=== PATIENT | female | born 1935 | race Caucasian/White ===

== ENCOUNTER 2020-01-31 07:47 | Outpatient (CLI) | payer MEDICARE, SELFPAY ==
--- NOTE | ~2020-01-31 | CT_ITS ---
EXAMINATION: CT abdomen pelvis w con DATE: 01/31/2020 08:31 INDICATION: Amyloidosis TECHNIQUE: Computed tomography (CT) of the abdomen and pelvis was performed with 100 cc Omnipaque 350 intravenous contrast. Automated exposure control and iterative reconstruction technique were employe d. Exam dose: 231.22 mGy-cm total exam DLP. COMPARISON: 07/31/2018 CT abdomen and pelvis noncontrast examination 03/15/2019 CT pelvis FINDINGS: There is mild discoid atelectasis or scarring in the lower lung zones and evidence of COPD. No pericardial or pleural effusion. Small sliding hiatal hernia. The liver, spleen, pancreas, and adrenal glands and kidneys are unremarkable. No bile duct or pancrea tic duct dilatation. The gallbladder appears unremarkable. No urinary tract calculus or hydroureteron ephrosis. There is abdominal aortic atherosclerosis but no aneurysm. There is atherosclerotic calcification of the iliac and femoral arteries. There is pelvic vascular venous congestion bilaterally, greater on th e left. 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 No intraperitoneal or retroperitoneal or pelvic mass lesion or adenopathy or ascites. There is a prominent amount of fecal material in the rectum and colon. There are numerous diverticula of the sigmoid colon, minimal diverticulosis of the right colon. There is a short segment narrowing at the proximal transverse colon (series 3 image 87); this may be contraction, but consider barium en debi or colonoscopy as clinically appropriate. There is a prominent amount of fecal material in the re ctum and colon. There is suggestion of postoperative change from appendectomy; recommend correlation with surgical history. The uterus and adnexal areas are and urinary bladder are unremarkable. Prominent bilateral hip osteoarthritis. Bone graft defect of right iliac bone. Degenerative spurring of the lower thoracic spine. Mild retrolisthesis at T12-L1. Status post and interbody lumbar laminectomy and posterior L3-L5 spinal fusion. IMPRESSION: Short segment narrowing of the proximal transverse colon; this may be contraction, but b arium or colonoscopy should be considered for further evaluation Diverticulosis of the colon; no CT evidence of diverticulitis Reviewed, dictated and finalized at [facility]. Reviewed, dictated and finalized at location [facility]. IMPRESSION: Short segment narrowing of the proximal transverse colon; this may be contraction, but barium or colonoscopy should be considered for further tamara luation Diverticulosis of the colon; no CT evidence of diverticulitis
[2020-01-31 08:17] LABS: Estimated Glomerular Filt Rate > 60
== END 2020-01-31 07:48 | disposition home or self-care (01) ==
PROVIDERS: PCP Internal Medicine; Visit Provider Internal Medicine Hematology & Oncology
DX: E85.9 Amyloidosis, unspecified (principal); K56.609 Unspecified intestinal obstruction, unspecified as to partial versus complete obstruction
CPT/HCPCS: 36415; 74177; Q9967

== ENCOUNTER 2020-02-07 10:39 | Outpatient (CLI) | payer MEDICARE, SELFPAY ==
[2020-02-07 10:51] LABS: Basophils Absolute Auto 0.1 K/mm3 (0.0-0.1); Basophils Percent Auto 0.7 % (0.2-1.2); Eosinophils Absolute Auto 0.3 K/mm3 (0-0.3); Eosinophils Percent Auto 3.3 % (0-4.4); Hematocrit 39.9 % (37.0-47.0); Hemoglobin 13.6 g/dL (12.0-15.0); Immature Granulocyte Absolute 0.01 K/mm3 (0.00-0.031); Immature Granulocyte Percent A 0.1 % (0-0.5); Lymphocytes Absolute Auto 1.97 K/mm3 (0.9-3.2); Lymphocytes Percent Auto 25.8 % (18.3-44.2); Mean Corpuscular HGB Conc 34.1 g/dl (32-36); Mean Corpuscular Hemoglobin 36.2 pg (26-34); Mean Corpuscular Volume 106.1 fl (80-100); Mean Platelet Volume 9.4 fl (7.4-10.4); Monocytes Absolute Auto 0.5 K/mm3 (0.1-0.6); Monocytes Percent Auto 7.1 % (2.6-8.5); Neutrophils Absolute Auto 4.8 K/mm3 (1.3-6.7); Platelet Count Result 163 k/mm3 (150-375); Red Blood Count 3.76 M/mm3 (4.2-5.4); Red Cell Distribution Width 12.1 % (11.5-14.5); White Blood Count 7.7 K/mm3 (4.5-10.0)
[2020-02-07 10:56] LABS: Blood Urea Nitrogen 32 mg/dL (8-26); Carbon Dioxide 27 mmol/L (22-30); Chloride 104 mmol/L (98-109); Estimated Glomerular Filt Rate > 60; Glucose 107 mg/dL (70-105); Potassium 4.3 mmol/L (3.5-4.9); Sodium 139 mmol/L (138-146)
== END 2020-02-07 10:40 | disposition home or self-care (01) ==
LOC: ANHLAB 10:39
PROVIDERS: PCP Internal Medicine; Visit Provider Internal Medicine Hematology & Oncology
DX: E85.89 Other amyloidosis (principal)
CPT/HCPCS: 36415; 80048; 85025

== ENCOUNTER 2020-07-31 13:46 | Outpatient (CLI) | payer MEDICARE, SELFPAY ==
[2020-07-31 14:13] LABS: Basophils Percent Auto 0.3 % (0.2-1.2); Eosinophils Absolute Auto 0.2 K/mm3 (0-0.3); Eosinophils Percent Auto 2.9 % (0-4.4); Hematocrit 35.7 % (37.0-47.0); Hemoglobin 12.4 g/dL (12.0-15.0); Immature Granulocyte Absolute 0.02 K/mm3 (0.00-0.031); Immature Granulocyte Percent A 0.3 % (0-0.5); Lymphocytes Absolute Auto 2.06 K/mm3 (0.9-3.2); Lymphocytes Percent Auto 29.9 % (18.3-44.2); Mean Corpuscular HGB Conc 34.7 g/dl (32-36); Mean Corpuscular Hemoglobin 35.4 pg (26-34); Mean Platelet Volume 9.2 fl (7.4-10.4); Monocytes Absolute Auto 0.6 K/mm3 (0.1-0.6); Monocytes Percent Auto 8.4 % (2.6-8.5); Neutrophils Percent Auto 58.2 % (45.5-73.1); Platelet Count Result 187 k/mm3 (150-375); Red Cell Distribution Width 12.3 % (11.5-14.5); White Blood Count 6.9 K/mm3 (4.5-10.0)
[2020-07-31 16:24] LABS: Alanine Aminotransferase 23 U/L (4-35); Alkaline Phosphatase 68 U/L (38-126); Anion Gap 8 mmol/L (8-16); Aspartate Amino Transferase 37 U/L (14-36); Bilirubin,Total 0.5 mg/dL (0.2-1.3); Blood Urea Nitrogen 32 mg/dL (7-17); Calcium 9.8 mg/dL (8.4-10.2); Carbon Dioxide 29 mmol/L (22-30); Chloride 100 mmol/L (98-107); Estimated Glomerular Filt Rate > 60; Glucose 129 mg/dL (65-105); Potassium 4.1 mmol/L (3.4-5.0); Sodium 137 mmol/L (137-145)
[2020-08-04 22:07] LABS: Albumin 3.9 g/dL (3.8-4.8); Alpha 1 Globulin 0.3 g/dL (0.2-0.3); Alpha 2 Globulin 0.5 g/dL (0.5-0.9); Beta 1 Globulin 0.4 g/dL (0.4-0.6); Gamma Globulin 0.8 g/dL (0.8-1.7); Protein, Total 6.3 g/dL (6.1-8.1)
== END 2020-07-31 13:47 | disposition home or self-care (01) ==
LOC: ANHLAB 13:48
PROVIDERS: PCP Internal Medicine; Visit Provider Internal Medicine Hematology & Oncology
DX: E85.89 Other amyloidosis (principal)
CPT/HCPCS: 36415; 80053; 84155; 84165; 85025; 86334

== ENCOUNTER 2020-08-10 11:51 | Outpatient (CLI) | payer MEDICARE, SELFPAY ==
[2020-08-10 19:00] LABS: Iron 191 ug/dL (37-170)
[2020-08-10 19:09] LABS: Percent Iron Saturation 58 % (20-50)
[2020-08-10 20:30] LABS: Folic Acid > 20.0 ng/mL (2.76->20); Vitamin B12 > 1000.0 pg/mL (239-931)
== END 2020-08-10 11:52 | disposition home or self-care (01) ==
LOC: ANHLAB 11:54
PROVIDERS: PCP Internal Medicine; Visit Provider Internal Medicine Hematology & Oncology
DX: R71.8 Other abnormality of red blood cells (principal)
CPT/HCPCS: 36415; 82607; 82728; 82746; 83540; 83550

== ENCOUNTER 2020-11-14 09:41 | Emergency (ER) | payer MEDICARE, SELFPAY ==
[2020-11-14] VITALS (13 sets, daily range): BP systolic 158–176; BP diastolic 60–87; PULSE 69–98; RESP 14–17; TEMP 35.8; O2SAT 78–99
--- NOTE | ~2020-11-14 | CT_ITS ---
EXAMINATION: CT lumbar spine wo con DATE: 11/14/2020 10:47 INDICATION: Low back pain. TECHNIQUE: Computed tomography (CT) of the lumbar spine was performed without intravenous contrast. A utomated exposure control and iterative reconstruction technique were employed. The dose-length produ ct was 362.89 mGy-cm. COMPARISON: CT abdomen and pelvis 01/31/2020, lumbar spine MRI 08/23/2019 FINDINGS: There is 7 degrees dextrocurvature of lumbar spine. There is 3 mm retrolisthesis of T12 on L1 and 3 mm anterolisthesis of L3 on L4 and L4 on L5. There are changes of anterior and posterior fus ion procedures at L3-L4 and L4-L5 with interbody devices and pedicle screws. There is severely decrea sed disc height at L2-L3 with endplate remodeling. The following disc levels are specifically discuss ed: L1-L2: The disc does not extend beyond the endplate margin. There is mild right and severe left facet joint osteoarthritis. There is no neural foraminal stenosis. There is no central canal stenosis. L2-L3: The disc is bulging. There is severe bilateral facet joint osteoarthritis. There is mild bilat eral neural foraminal stenosis. There is mild central canal stenosis. L3-L4: There is no facet joint hypertrophy. There is no neural foraminal stenosis. There is no centra l canal stenosis. L4-L5: There is mild left facet joint hypertrophy. There is mild left neural foraminal stenosis. Ther e is mild central canal stenosis with posterior decompression. L5-S1: The disc does not extend beyond the endplate margin. There is severe bilateral facet joint ost eoarthritis. There is mild bilateral neural foraminal stenosis. There is no central canal stenosis. IMPRESSION: 1. Severe lumbar spondylosis. 2. Anterior and posterior fusion procedures from L3 to L5. Reviewed, dictated and finalized at location [facility]. TOR SERVICES REPRESENTATIVE
--- NOTE | 2020-11-14 10:18 | PC.NURSE ---
PA at bedside for pt assessment.
--- NOTE | 2020-11-14 10:27 | ED.BACK ---
HPI - Back Pain/Injury General Chief Complaint: Back Pain/Injury Stated Complaint: back pain Time Seen by Provider: 11/14/20 10:10 Source: patient Mode of arrival: ambulatory Limitations: no limitations History of Present Illness HPI Narrative: This is an 84-year-old female that presents the emergency department for acute on chronic low back pain. Reports she sees pain management for this. Reports she recently had a radiofrequency ablation at the SI joint. Reports her pain has been worse since then. This was 4 days ago. They told her her pain should start improving after 4 days. She took tramadol this morning with some relief. Reports some nausea from the tramadol. Denies fever, abdominal pain, vomiting, dysuria, hematuria, weakness, or numbness. Related Data Home Medications Medication Instructions Recorded Confirmed biotin 300 mcg tablet 300 mcg PO DAILY 02/13/20 08/13/20 calcium carbonate 600 mg calcium 600 mg PO DAILY 02/13/20 08/13/20 (1,500 mg) tablet magnesium 250 mg tablet 250 mg PO DAILY 02/13/20 08/13/20 [id number]-ysq-cyfhz acid 0.4 1 tablet PO DAILY 02/13/20 08/13/20 mg-lycopene 300 mcg-lutein 250 mcg tablet omega-3 fatty acids 500 mg capsule 500 mg PO DAILY 02/13/20 08/13/20 pyridoxine (vitamin B6) 100 mg 100 mg PO DAILY 02/13/20 08/13/20 tablet albuterol sulfate 0.63 mg/3 mL 0.63 mg INHALATION Q4-6H PRN 07/30/20 08/13/20 solution for nebulization nabumetone mg PO 11/14/20 Allergies Allergy/AdvReac Type Severity Reaction Status Date / Time adhesive tape Allergy Unknown Unknown Verified 11/14/20 09:56 codeine Allergy Unknown Unknown Verified 11/14/20 09:56 Dphqpwm-Gbg-Otx Reductase Allergy Unknown Unknown Verified 11/14/20 09:56 Inhibitor Review of Systems Review of Systems: Narrative: CONSTITUTIONAL: Denies fever GASTROINTESTINAL: Reports nausea. Denies abdominal pain, vomiting GENITOURINARY: Denies dysuria or hematuria. SKIN: Denies rash MUSCULOSKELETAL: Reports back pain, joint pain, and myalgia. NEUROLOGIC: Denies numbness, or weakness. All systems reviewed & are unremarkable except as noted in HPI and below PMFSH Past Medical History Medical History (Updated 11/14/20 @ 12:18 by Manuela Sanchez PA-C) Amyloidosis, unspecified Bilateral shoulder pain Degenerative joint disease Emphysema lung GERD (gastroesophageal reflux disease) Hiatal hernia Hyperlipidemia Hypertension Lung nodule Trochanteric bursitis Surgical History Surgical History History of back surgery Dr. Mena History of carpal tunnel release History of knee replacement Juan Family History Family History Mother Hypertension Diabetes mellitus Other Family history of arthritis Social History Social History Smoking status: Never smoker Second hand tobacco smoke exposure: No Alcohol intake: never Gender identity (if verbalized by the patient): Female Exam Narrative: Exam Narrative: GENERAL: Elderly, well-nourished, and in no acute distress. HEAD: Normocephalic, atraumatic. EYES: EOMI. CHEST: Clear to auscultation. No respiratory distress. No wheezes rales or rhonchi HEART: Regular rate and rhythm. No murmur heard. Normal peripheral pulses. ABDOMEN: Soft, nontender, nondistended, normal active bowel sounds. BACK: No midline spinal tenderness. Mild bruising to the left lower back where injection site is, no erythema or warmth EXTREMITIES: Normal range of motion. No edema. Strength equal in bilateral lower extremities (5/5) SKIN: Warm, dry, no rash. NEURO: No focal deficits. Alert and oriented x3. PSYCH: Normal mood and affect Course Vital Signs Vital signs: Vital Signs Temperature 96.5 F L 11/14/20 09:52 Pulse Rate 75 11/14/20 09:52 Respiratory Rate 17 11/14/20 09:52 Blood Pressure 165/77 H 11/14/20 09:
[2020-11-14] MEDS: ACETAMINOPHEN 500 MG TABLET 1000 MG PO (10:36)
[2020-11-14] MEDS: ONDANSETRON HCL ODT 4 MG TABLET PO (10:36)
--- NOTE | 2020-11-14 10:39 | PC.NURSE ---
Pt to CT.
[2020-11-14 10:54] LABS: Basophils Percent Auto 0.6 % (0.2-1.2); Eosinophils Absolute Auto 0.1 K/mm3 (0-0.3); Eosinophils Percent Auto 1.7 % (0-4.4); Hematocrit 36.5 % (37.0-47.0); Hemoglobin 12.5 g/dL (12.0-15.0); Immature Granulocyte Absolute 0.02 K/mm3 (0.00-0.031); Immature Granulocyte Percent A 0.3 % (0-0.5); Lymphocytes Absolute Auto 1.46 K/mm3 (0.9-3.2); Mean Corpuscular HGB Conc 34.2 g/dl (32-36); Mean Corpuscular Hemoglobin 35.3 pg (26-34); Mean Corpuscular Volume 103.1 fl (80-100); Mean Platelet Volume 9.1 fl (7.4-10.4); Monocytes Absolute Auto 0.6 K/mm3 (0.1-0.6); Monocytes Percent Auto 9.1 % (2.6-8.5); Neutrophils Absolute Auto 4.7 K/mm3 (1.3-6.7); Neutrophils Percent Auto 67.3 % (45.5-73.1); Platelet Count Result 184 k/mm3 (150-375); Red Blood Count 3.54 M/mm3 (4.2-5.4); Red Cell Distribution Width 11.6 % (11.5-14.5); White Blood Count 6.9 K/mm3 (4.5-10.0)
[2020-11-14 11:46] LABS: Anion Gap 6 mmol/L (8-16); Blood Urea Nitrogen 19 mg/dL (7-17); CRP < 0.5 mg/dL (<1.0); Calcium 9.7 mg/dL (8.4-10.2); Carbon Dioxide 29 mmol/L (22-30); Chloride 103 mmol/L (98-107); Estimated CRCL calculation 42 ml/min; Estimated Glomerular Filt Rate > 60; Glucose 117 mg/dL (65-105); Potassium 4.1 mmol/L (3.4-5.0); Sodium 138 mmol/L (137-145)
--- NOTE | 2020-11-14 11:55 | PC.NURSE ---
PA at bedside to discuss results and treatment plan with pt.
== END 2020-11-14 12:43 | disposition home or self-care (01) ==
PROVIDERS: Physician Assistant; Emergency Provider Emergency Medicine; PCP Internal Medicine
DX: M54.42 Lumbago with sciatica, left side (principal); J43.9 Emphysema, unspecified; K21.9 Gastro-esophageal reflux disease without esophagitis; E78.5 Hyperlipidemia, unspecified; I10 Essential (primary) hypertension; E85.9 Amyloidosis, unspecified; M47.816 Spondylosis without myelopathy or radiculopathy, lumbar region; Z98.1 Arthrodesis status
CPT/HCPCS: 36415; 72131; 80048; 85025; 86140; 99284; A9270

== ENCOUNTER 2020-11-30 08:04 | Outpatient (CLI) | payer MEDICARE, SELFPAY ==
[2020-11-30 08:36] LABS: Basophils Percent Auto 0.6 % (0.2-1.2); Eosinophils Absolute Auto 0.2 K/mm3 (0-0.3); Eosinophils Percent Auto 4.1 % (0-4.4); Hematocrit 37.9 % (37.0-47.0); Hemoglobin 12.7 g/dL (12.0-15.0); Immature Granulocyte Absolute 0.01 K/mm3 (0.00-0.031); Immature Granulocyte Percent A 0.2 % (0-0.5); Lymphocytes Absolute Auto 1.83 K/mm3 (0.9-3.2); Lymphocytes Percent Auto 34.5 % (18.3-44.2); Mean Corpuscular HGB Conc 33.5 g/dl (32-36); Mean Corpuscular Hemoglobin 34.9 pg (26-34); Mean Corpuscular Volume 104.1 fl (80-100); Mean Platelet Volume 9.1 fl (7.4-10.4); Monocytes Absolute Auto 0.5 K/mm3 (0.1-0.6); Monocytes Percent Auto 9.8 % (2.6-8.5); Neutrophils Absolute Auto 2.7 K/mm3 (1.3-6.7); Neutrophils Percent Auto 50.8 % (45.5-73.1); Platelet Count Result 189 k/mm3 (150-375); Red Blood Count 3.64 M/mm3 (4.2-5.4); Red Cell Distribution Width 11.9 % (11.5-14.5); White Blood Count 5.3 K/mm3 (4.5-10.0)
[2020-11-30 12:19] LABS: Iron 135 ug/dL (37-170)
[2020-11-30 12:36] LABS: Percent Iron Saturation 41 % (20-50)
[2020-11-30 13:29] LABS: Folic Acid > 20.0 ng/mL (2.76->20)
[2020-12-03 14:03] LABS: Kappa\\Lambda Light Chains 1.27 (0.26-1.65); Lambda Light Chain 15.1 mg/L (5.7-26.3)
[2020-12-03 22:07] LABS: Albumin 4.1 g/dL (3.8-4.8); Alpha 1 Globulin 0.3 g/dL (0.2-0.3); Alpha 2 Globulin 0.6 g/dL (0.5-0.9); Beta 1 Globulin 0.4 g/dL (0.4-0.6); Gamma Globulin 0.8 g/dL (0.8-1.7); Protein, Total 6.6 g/dL (6.1-8.1)
== END 2020-11-30 08:05 | disposition home or self-care (01) ==
LOC: ANHLAB 08:05
PROVIDERS: PCP Internal Medicine; Visit Provider Internal Medicine Hematology & Oncology
DX: E83.19 Other disorders of iron metabolism (principal); R74.8 Abnormal levels of other serum enzymes; E85.89 Other amyloidosis
CPT/HCPCS: 36415; 82607; 82728; 82746; 83540; 83550; 83883; 84155; 84165; 85025

== ENCOUNTER 2020-12-07 10:34 | Outpatient (CLI) | payer MEDICARE, SELFPAY ==
--- NOTE | ~2020-12-07 | XR_ITS ---
EXAMINATION: XR femur LT min 2V DATE: 12/07/2020 11:03 INDICATION: Left lower limb pain TECHNIQUE: AP and lateral views of the left femur were obtained on overlapping proximal and distal ra diographs. COMPARISON: Left hip radiographs dated 07/02/2020 and left knee radiographs dated 08/13/2012 FINDINGS: Again seen is a left total knee arthroplasty with patellar resurfacing which appears in near-anatomic alignment. No left knee joint effusion. No fractures. No suspected avascular necrosis at the left fe moral head. Mild left hip osteoarthritis with minimal nonuniform joint space narrowing and small ashkan inal osteophytes about the femoral head and acetabulum. Atherosclerotic calcifications along the velvet arelis at the medial left thigh and left groin. IMPRESSION: 1. Unremarkable left total knee arthroplasty. No acute osseous abnormality. Reviewed, dictated and finalized at location B. LY SIGN LANGUAGE INTERPRETER
== END 2020-12-07 10:35 | disposition home or self-care (01) ==
LOC: ANHIMG 10:41
PROVIDERS: PCP Internal Medicine; Visit Provider Internal Medicine
DX: M79.669 Pain in unspecified lower leg (principal)
CPT/HCPCS: 73552

== ENCOUNTER 2020-12-08 10:46 | Outpatient (CLI) | payer MEDICARE, SELFPAY | END 2020-12-08 10:47 | disposition home or self-care (01) | LOC: ANHCOVIDVC 10:46 | PROVIDERS: PCP Internal Medicine; Visit Provider Internal Medicine | DX: Z23 Encounter for immunization (principal) | CPT/HCPCS: 0001A; 91300 ==

== ENCOUNTER 2020-12-29 10:45 | Outpatient (CLI) | payer MEDICARE, SELFPAY | END 2020-12-29 10:46 | disposition home or self-care (01) | LOC: ANHCOVIDVC 10:45 | PROVIDERS: PCP Internal Medicine | DX: Z23 Encounter for immunization (principal) | CPT/HCPCS: 0002A; 91300 ==

== ENCOUNTER 2021-01-15 09:33 | Outpatient (CLI) | payer MEDICARE, SELFPAY ==
--- NOTE | ~2021-01-15 | XR_ITS ---
EXAMINATION: XR chest 2V DATE: 01/15/2021 10:04 INDICATION: Shortness of breath. Cough. TECHNIQUE: Frontal and lateral views of the chest were obtained. COMPARISON: Chest 2 views 07/15/2019, chest CT 12/01/2017 FINDINGS: There is mild scarring at the lung apices. No pleural effusion or pneumothorax. The heart s ize is normal. There is a prominent left paracardial fat pad. There are changes of posterior fusion p rocedure in lumbar spine. IMPRESSION: 1. Stable mild scarring at the lung apices. Reviewed, dictated and finalized at location A.
--- NOTE | 2021-01-15 10:30 | ECHO_ITS ---
Patient Info Name: Alberta Trejo Age: 85 years : 1935 Gender: Female Ht: 60 in Wt: 130 lbs BSA: 1.59 m2 HR: 76 bpm BP: 158 / 81 mmHg Technical Quality: Good Exam Date: 01/15/2021 10:15 AM Exam Location: [facility] Patient Status: Outpatient Admit Date: 01/15/2021 Staff Ordering Physician: Spencer Gerber APRN Joint Sealer: Candice Roberts RDCS Attending Provider: Spencer Gerber APRN Referring Physician: Fausto Chun MD; Exam Type: CA echo doppler color flow Study Info Indications - baez sob cough Complete two-dimensional, color flow and Doppler transthoracic echocardiogram is performed. Summary 1. Complete two-dimensional, color flow and Doppler transthoracic echocardiogram is performed. 2. Left ventricular chamber dimension is normal. 3. Left ventricular systolic function is normal, estimated at 60-65%. 4. The left ventricular diastolic function is grade I diastolic dysfunction. 5. E/e' 9 is minimally elevated. 6. Global longitudinal strain is mildly abnormal at -16.7%. 7. Left atrial chamber dimension is mildly enlarged. 8. There is mild mitral valve regurgitation. 9. There is mild tricuspid valve regurgitation. 10. No pulmonary hypertension, estimated pulmonary arterial systolic pressure is 32 mmHg. 11. There is trace pulmonic regurgitation. Left Ventricle E/e' 9 is minimally elevated. Global longitudinal strain is mildly abnormal at -16.7%. Left ventricular chamber dimension is normal. Left ventricular systolic function is normal, estimated at 60-65%. The left ventricular diastolic function is grade I diastolic dysfunction. Right Ventricle Right ventricular systolic function is normal. TAPSE is not performed. Right ventricular chamber dimension is normal. Left Atria Left atrial chamber dimension is mildly enlarged. Right Atria Right atrial chamber dimension is normal. Aortic Valve The aortic valve is trileaflet. There is no aortic valve stenosis. There is no aortic valve regurgitation. Pulmonic Valve There is trace pulmonic regurgitation. Mitral Valve There is no mitral valve stenosis. There is mild mitral valve regurgitation. Tricuspid Valve There is mild tricuspid valve regurgitation. No pulmonary hypertension, estimated pulmonary arterial systolic pressure is 32 mmHg. Pericardium/Pleural There is no pericardial effusion. Inferior Vena Cava Normal inferior vena cava with >50% collapse upon inspiration consistent with normal right atrial pressure, 5 mmHg. Aorta The aortic root size at the sinus of Valsalva is normal. Left Ventricular Outflow Tract Name Value Normal LVOT 2D LVOT Diameter 2.0 cm LVOT Doppler LVOT Peak Gradient 4 mmHg LVOT Mean Gradient 2 mmHg LVOT VTI 24 cm LVOT VTI/AV VTI Ratio 0.9 LVOT Stroke Volume 75 ml LVOT CO 14.1 l/min LVOT CI 8.8 l/min/m2 Pulmonic Valve
== END 2021-01-15 09:34 | disposition home or self-care (01) ==
PROVIDERS: PCP Internal Medicine; Referring Provider Internal Medicine Critical Care Medicine; Visit Provider Nurse Practitioner Family
DX: R06.02 Shortness of breath (principal); R05 Cough; I34.0 Nonrheumatic mitral (valve) insufficiency; I36.1 Nonrheumatic tricuspid (valve) insufficiency
CPT/HCPCS: 71046; 93306

== ENCOUNTER 2021-01-29 08:34 | Outpatient (CLI) | payer MEDICARE, SELFPAY ==
[2021-01-29 09:03] LABS: Hematocrit 40.6 % (37.0-47.0); Hemoglobin 13.8 g/dL (12.0-15.0); Red Blood Count 3.94 M/mm3 (4.2-5.4)
[2021-01-29 09:04] LABS: Basophils Percent Auto 0.8 % (0.2-1.2); Eosinophils Absolute Auto 0.2 K/mm3 (0-0.3); Immature Granulocyte Absolute 0.01 K/mm3 (0.00-0.031); Immature Granulocyte Percent A 0.2 % (0-0.5); Lymphocytes Absolute Auto 2.14 K/mm3 (0.9-3.2); Lymphocytes Percent Auto 43.1 % (18.3-44.2); Mean Platelet Volume 9.2 fl (7.4-10.4); Monocytes Absolute Auto 0.4 K/mm3 (0.1-0.6); Monocytes Percent Auto 8.5 % (2.6-8.5); Neutrophils Absolute Auto 2.2 K/mm3 (1.3-6.7); Neutrophils Percent Auto 44.4 % (45.5-73.1); Platelet Count Result 189 k/mm3 (150-375); Red Cell Distribution Width 12.4 % (11.5-14.5)
[2021-01-29 14:25] LABS: Alanine Aminotransferase 22 U/L (4-35); Albumin Level 3.9 g/dL (3.5-5.1); Alkaline Phosphatase 64 U/L (38-126); Anion Gap 4 mmol/L (8-16); Aspartate Amino Transferase 33 U/L (14-36); Bilirubin,Total 0.4 mg/dL (0.2-1.3); Blood Urea Nitrogen 33 mg/dL (7-17); Calcium 9.9 mg/dL (8.4-10.2); Carbon Dioxide 32 mmol/L (22-30); Chloride 104 mmol/L (98-107); Estimated Glomerular Filt Rate > 60; Glucose 115 mg/dL (65-105); Potassium 4.2 mmol/L (3.4-5.0); Sodium 140 mmol/L (137-145)
[2021-01-29 15:29] LABS: Folic Acid > 20.0 ng/mL (2.76->20)
[2021-01-31 23:46] LABS: Kappa\\Lambda Light Chains 1.46 (0.26-1.65); Lambda Light Chain 12.7 mg/L (5.7-26.3)
[2021-02-01 21:36] LABS: Albumin 4.2 g/dL (3.8-4.8); Alpha 1 Globulin 0.3 g/dL (0.2-0.3); Alpha 2 Globulin 0.6 g/dL (0.5-0.9); Beta 1 Globulin 0.5 g/dL (0.4-0.6); Gamma Globulin 0.8 g/dL (0.8-1.7); Protein, Total 6.7 g/dL (6.1-8.1)
== END 2021-01-29 08:35 | disposition home or self-care (01) ==
LOC: ANHLAB 08:37
PROVIDERS: PCP Internal Medicine; Visit Provider Internal Medicine Hematology & Oncology
DX: E85.89 Other amyloidosis (principal); R71.8 Other abnormality of red blood cells
CPT/HCPCS: 36415; 80053; 82607; 82746; 83883; 84155; 84165; 85025

== ENCOUNTER 2021-04-16 07:59 | Outpatient (CLI) | payer MEDICARE, SELFPAY ==
--- NOTE | ~2021-04-16 | NM_ITS ---
EXAMINATION: NM pulmonary perfusion EXAM DATE: 04/16/2021 11:16 INDICATION: R06.02 - Shortness of breath. TECHNIQUE: A perfusion lung scan was performed. The patient was injected with 5.5 mCi technetium 99m MAA and imaged. Modified PIOPED 2 criteria used for interpretation of perfusion without ventilation study (recent chest x-ray instead for comparison). Comparison is made to prior examination from 2017. FINDINGS: Mildly heterogeneous perfusion without perfusion segmental defect. Similar appearance on th e prior scan from 2018. Low probability pulmonary embolism. IMPRESSION: Low probability pulmonary embolism. Reviewed, dictated and finalized at location B.
--- NOTE | ~2021-04-16 | XR_ITS ---
XR chest 2V DATE: 04/16/2021 09:40 INDICATION: Shortness of breath. TECHNIQUE: PA and lateral views COMPARISON: 01/15/2021 PA and lateral chest FINDINGS: Normal heart size. Aortic arch calcification. No hilar or mediastinal enlargement is eviden t. The lungs appear mildly hyperinflated but clear of infiltrate or consolidation. No pleural effusion o r pulmonary vascular congestion or pneumothorax. Status post posterior lumbar spinal surgical fusion. Diffuse osteopenia. IMPRESSION: No active cardiopulmonary disease or significant change since 01/25/2021 Reviewed, dictated and finalized at location A. IMPRESSION: No active cardiopulmonary disease or significant change since 2020
--- NOTE | 2021-04-16 12:40 | WPDSIXMINUTE ---
Six Minute Walk Procedure Procedure Performed Pulmonary Stress Test (6 min walk) Six Minute Walk This is a 6 minutes walk test. The test was performed and interpreted in accordance with the 2014 ERS/ATS task force guidelines. Findings: The patient's resting room air oxygen saturation measured by pulse oximetry was 95% and her heart rate was 86 bpm. Patient ambulated for 244 meters and oxygen saturation remained 95 to 100%. Heart rate at the end of the study was 74 bpm. The patient did not qualify for supplemental oxygen at rest or with ambulation. There are no prior studies for comparison.
--- NOTE | 2021-04-16 12:43 | WPDPFTINT ---
PFT Procedure Performed PFT Procedure Performed Spirometry with Pre/Post Bronchodilator Plethysmography (Lung Vol) Diffusing Cap (DLCO) Flow Vol Loop PFT Interpretation This is a pulmonary function test with pre and post-bronchodilator spirometry, plethysmography and diffusing capacity. The test was performed and results interpreted in accordance with the 2019 and 2005 ATS/ERS Task Force guidelines respectively using the Global Lung Function Initiative-2012 reference equations. Patient demonstrated good effort with some difficulty following directions. Reproducibility criteria were met. The quality of the pre bronchodilator spirometry maneuver was Grade B and post bronchodilator spirometry maneuver was Grade A. Findings: Spirometry: the contour of the inspiratory and expiratory flow tracing are normal. The pre bronchodilator FVC is 2.32 L, 109% predicted. The pre bronchodilator FEV1 is 2.01 L, 124% predicted. The FEV1: FVC ratio was 87%. The post bronchodilator FVC is 2.32 L, representing no change. The post bronchodilator FEV1 is 2.00 L, representing 1% decrease. Plethysmography: The total lung capacity is 4.20 L, 91% predicted. The functional residual capacity is 2.18 L, 82% predicted. The residual volume is 1.88 L, 80% predicted. Diffusing capacity: The absolute diffusion capacity is 12.9, 74% predicted. The diffusing capacity corrected for alveolar volume is 3.48, 83% predicted. In comparison to the previous study from 01/02/2018 the post bronchodilator FVC is unchanged from 2.13 L to 2.32 L. The post bronchodilator FEV1 is unchanged from 1.86 L to 2.00 L. The total lung capacity has decreased from 6.14 L to 4.20 L. The functional residual capacity has decreased from 4. 76 L to 2.18 L. The residual volume has decreased from 3.80 L to 1.88 L. The absolute diffusion capacity is unchanged from 14.0 to 12.9. The diffusing capacity corrected for alveolar volume has decreased from 4.12 to 3.48. Impression: The spirometry is normal without evidence of an obstructive abnormality. There is no significant improvement after inhaling a single dose of albuterol. The lung volumes are normal. The diffusing capacity is normal. In comparison to the previous pulmonary function test on 01/02/2018 there has been a greater than anticipated time dependent decrease in the total lung capacity, functional residual capacity, residual volume and diffusing capacity corrected for alveolar volume with no significant change in the FVC, FEV1 or absolute diffusion capacity. Clinical correlation is recommended.
== END 2021-04-16 08:00 | disposition home or self-care (01) ==
PROVIDERS: PCP Internal Medicine; Visit Provider Nurse Practitioner Family
DX: R06.02 Shortness of breath (principal)
CPT/HCPCS: 71046; 78580; 94060; 94618; 94726; 94729; A9540

== ENCOUNTER 2021-06-09 12:44 | Emergency (ER) | payer MEDICARE, SELFPAY ==
[2021-06-09] VITALS (7 sets, daily range): BP systolic 101–179; BP diastolic 70–86; PULSE 68–79; RESP 15–22; TEMP 37.1; O2SAT 97
--- NOTE | ~2021-06-09 | CT_ITS ---
EXAMINATION: CT brain wo con INDICATION: Weakness and confusion COMPARISON: 11/19/2014 TECHNIQUE: Standard unenhanced head CT. The dose-length product (DLP) was 529.67 mGy-cm. The mA was a djusted according to patient size. Iterative reconstruction technique was employed. FINDINGS: There is no acute intraparenchymal hemorrhage. No evidence of mass lesion. No evidence of a cute infarction. There is mild periventricular and subcortical hypodensity probably related to small vessel ischemic disease. There is mild prominence of the sulci and ventricles related to cerebral atr ophy. Intracranial calcified cerebral atherosclerosis is noted. There are no extra-axial collections. There is no mass effect or midline shift. The orbits and soft tissues are unremarkable. There is a c hronic right mastoid effusion. IMPRESSION: 1. No acute intracranial abnormality. 2. Age related findings. Reviewed, dictated and finalized at location A.
--- NOTE | 2021-06-09 13:22 | ECG_ITS ---
Measurements Intervals Onward Rate: 66 P: 58 AR: 173 QRS: 16 QRSD: 92 T: 5 QT: 369 QTc: 388 Interpretive Statements SINUS RHYTHM EARLY PRECORDIAL R/S TRANSITION BASELINE ARTIFACT- I, II, AVR BORDERLINE ECG Electronically Signed On 06-09-2021 14:19:45 CDT by Jermaine Lugo D.O.
[2021-06-09 13:45] LABS: Basophils Percent Auto 0.4 % (0.2-1.2); Eosinophils Absolute Auto 0.1 K/mm3 (0-0.3); Hematocrit 39.4 % (37.0-47.0); Hemoglobin 13.3 g/dL (12.0-15.0); Immature Granulocyte Absolute 0.02 K/mm3 (0.00-0.031); Immature Granulocyte Percent A 0.3 % (0-0.5); Lymphocytes Absolute Auto 2.02 K/mm3 (0.9-3.2); Lymphocytes Percent Auto 28.8 % (18.3-44.2); Mean Corpuscular HGB Conc 33.8 g/dl (32-36); Mean Corpuscular Hemoglobin 34.9 pg (26-34); Mean Corpuscular Volume 103.4 fl (80-100); Mean Platelet Volume 9.1 fl (7.4-10.4); Monocytes Absolute Auto 0.6 K/mm3 (0.1-0.6); Monocytes Percent Auto 8.3 % (2.6-8.5); Neutrophils Absolute Auto 4.2 K/mm3 (1.3-6.7); Neutrophils Percent Auto 60.2 % (45.5-73.1); Platelet Count Result 204 k/mm3 (150-375); Red Blood Count 3.81 M/mm3 (4.2-5.4); Red Cell Distribution Width 12.2 % (11.5-14.5)
[2021-06-09 13:50] LABS: Add Urine Microscopic? YES; Appearance Urine Clear (Clear); Bacteria Urine Trace /hpf; Bilirubin Urine Negative (Negative); Blood Urine Negative (Negative); Color Urine Yellow (Yellow); Glucose Urine UA Negative (Negative); Ketones Urine Negative (Negative); Leukocyte Esterase Ur Negative LEU/UL (Negative); Mucus Urine Rare /lpf; Nitrate Urine Negative (Negative); Protein Urine Negative (Negative); RBC Urine 0-2 /hpf (0-2); Specific Grav Ur 1.016 (1.001-1.035); Squamous Epithelial Cell Urine Rare /hpf (Few); Urobilinogen Urine Negative mg/dL (<2.0); WBC Urine 0-3 /hpf
--- NOTE | 2021-06-09 13:54 | ED.NEUROSD ---
HPI - Neuro Symptoms/Deficit General Chief Complaint: Neuro Symptoms/Deficit Stated Complaint: SOB, Memory Issues Time Seen by Provider: 06/09/21 13:27 Source: patient, family and RN notes reviewed Mode of arrival: ambulatory Limitations: no limitations History of Present Illness HPI Narrative: This is an 85 year old female with history of chronic sob, hypertension, early dementia who presents with family due to concern of possible ministroke . Her family at bedside states a few days ago patient was unable to remember what favorite TV she watched in the morning and she was calling grandchildren by the wrong name. Patient has been forgetful recently but she states nothing ever that severe. She denies having any similar episodes again. She denies headache, focal weakness, numbness or tingling. She denies slurred speech but her daughter states patient seemed lethargic that day. She denies urinary symptoms, fever or abdominal pain. Related Data Home Medications Medication Instructions Recorded Confirmed biotin 300 mcg tablet 300 mcg PO DAILY 02/13/20 06/08/21 calcium carbonate 600 mg calcium 600 mg PO DAILY 02/13/20 06/08/21 (1,500 mg) tablet magnesium 250 mg tablet 250 mg PO DAILY 02/13/20 06/08/21 oyssgkul-mdd-oskop acid 0.4 1 tablet PO DAILY 02/13/20 06/08/21 mg-lycopene 300 mcg-lutein 250 mcg tablet omega-3 fatty acids 500 mg capsule 500 mg PO DAILY 02/13/20 06/08/21 pyridoxine (vitamin B6) 100 mg 100 mg PO DAILY 02/13/20 06/08/21 tablet Allergies Allergy/AdvReac Type Severity Reaction Status Date / Time adhesive tape Allergy Mild Rash Verified 06/09/21 14:13 codeine Allergy Unknown Unknown Verified 06/09/21 14:13 Review of Systems Review of Systems: All systems reviewed & are unremarkable except as noted in HPI and below PMFSH Past Medical History Medical History Amyloidosis, unspecified R ureter Bilateral shoulder pain Degenerative joint disease Emphysema lung GERD (gastroesophageal reflux disease) Hiatal hernia Hyperlipidemia Hypertension Lung nodule Other amyloidosis Pulmonary nodules Trochanteric bursitis Surgical History Surgical History History of back surgery Dr. Rajesh History of carpal tunnel release History of knee replacement Juan Family History Family History Mother Hypertension Diabetes mellitus Other Family history of arthritis Social History Social History Smoking status: Never smoker Second hand tobacco smoke exposure: No Alcohol intake: never Gender identity (if verbalized by the patient): Female Exam Const: General: no acute distress and alert Orientation/consciousness: patient oriented x3 Eyes: Pupils: Equal, round and reactive pupils present EOM: EOMs intact bilaterally Neck: Neck: normal visual inspection Chest: Chest palpation & inspection: normal inspection of the chest Resp: Effort & Inspection: normal respiratory effort and no retractions Auscultation: clear to auscultation bilaterally Cardio: Rate: regular rate Rhythm: regular rhythm Heart sounds: no murmurs GI: GI Palp: Yes Soft to palpation, No Tenderness to palpation present (GI) and No Guarding due to palpation present (GI) Auscultation: normal bowel sounds : General: Yes no CVA tenderness Skin: General skin exam: normal color Rashes: no rashes Neuro: General: patient oriented x3, moves all extremities, no meningeal signs, no focal motor deficits and CN's II-XI intact bilaterally Cranial nerves: Yes Nystagmus not present Speech: normal speech Extrem: General: no pedal edema Psych: Appearance: grossly normal Mental Status: mental status grossly normal Affect: normal affect Thought content: Yes Normal thought content present Course
[2021-06-09 14:04] LABS: Alanine Aminotransferase 21 U/L (4-35); Albumin Level 4.2 g/dL (3.5-5.1); Alkaline Phosphatase 70 U/L (38-126); Anion Gap 7 mmol/L (8-16); Aspartate Amino Transferase 42 U/L (14-36); Bilirubin,Total 0.6 mg/dL (0.2-1.3); Blood Urea Nitrogen 24 mg/dL (7-17); Calcium 9.9 mg/dL (8.4-10.2); Carbon Dioxide 27 mmol/L (22-30); Chloride 103 mmol/L (98-107); Estimated CRCL calculation 36 ml/min; Estimated Glomerular Filt Rate > 60; Glucose 117 mg/dL (65-110); Potassium 4.4 mmol/L (3.4-5.0); Sodium 137 mmol/L (137-145)
[2021-06-09] MEDS: SODIUM CHLORIDE 0.9% IV 1,000 ML 999 ML IV CONT (14:51)
== END 2021-06-09 16:35 | disposition home or self-care (01) ==
PROVIDERS: Emergency Medicine; Emergency Provider General Practice; PCP Internal Medicine
DX: R41.82 Altered mental status, unspecified (principal); F03.90 Unspecified dementia, unspecified severity, without behavioral disturbance, psychotic disturbance, mood disturbance, and anxiety; K21.9 Gastro-esophageal reflux disease without esophagitis; E78.5 Hyperlipidemia, unspecified; I10 Essential (primary) hypertension
CPT/HCPCS: 36415; 70450; 80053; 81001; 85025; 93005; 96360; 99284; J7030

== ENCOUNTER 2021-06-18 18:48 | Emergency (ER) | payer MEDICARE, SELFPAY ==
[2021-06-18 19:03] VITALS: BP 206/89; PULSE 81; RESP 16; TEMP 36.8; O2SAT 96
--- NOTE | 2021-06-18 20:07 | ECG_ITS ---
Measurements Intervals [place] Rate: 71 P: 75 WV: 199 QRS: 11 QRSD: 93 T: 16 QT: 372 QTc: 404 Interpretive Statements SINUS RHYTHM BASELINE ARTIFACT- II, III, AVR, AVF, V3-V6 NORMAL ECG Electronically Signed On 06-19-2021 6:49:27 CDT by Jermaine Lugo D.O.
[2021-06-18 20:45] VITALS: BP 186/77; PULSE 69; RESP 14; O2SAT 98
[2021-06-18 20:48] LABS: Anion Gap 10 mmol/L (8-16); Blood Urea Nitrogen 15 mg/dL (7-17); Calcium 10.6 mg/dL (8.4-10.2); Carbon Dioxide 28 mmol/L (22-30); Chloride 100 mmol/L (98-107); Estimated CRCL calculation 43 ml/min; Estimated Glomerular Filt Rate > 60; Glucose 96 mg/dL (65-110); Potassium 3.8 mmol/L (3.4-5.0); Sodium 138 mmol/L (137-145)
[2021-06-18 21:00] VITALS: BP 178/74
[2021-06-18 21:02] LABS: Troponin I < 0.012 ng/mL (0.000-0.034)
--- NOTE | 2021-06-18 21:24 | ED.GENADULT ---
HPI - General Adult General Chief complaint: Recheck/Abnormal Lab/Rx Stated complaint: high blood pressure Time Seen by Provider: 06/18/21 19:46 History of Present Illness HPI narrative: Patient is a 5-year-old female who presents ER with concerns for hypertension. She has been in the ER earlier this week with elevated blood pressures and then went to her PCPs office as well as an urgent care with systolic blood pressures around 200. She takes losartan 50 mg daily. She has no chest pain or chest pressure. No shortness of breath no dizziness or change in vision or change in hearing. Related Data Home Medications Medication Instructions Recorded Confirmed biotin 300 mcg tablet 300 mcg PO DAILY 02/13/20 06/17/21 calcium carbonate 600 mg calcium 600 mg PO DAILY 02/13/20 06/17/21 (1,500 mg) tablet magnesium 250 mg tablet 250 mg PO DAILY 02/13/20 06/17/21 olhowhlk-uay-suadc acid 0.4 1 tablet PO DAILY 02/13/20 06/17/21 mg-lycopene 300 mcg-lutein 250 mcg tablet omega-3 fatty acids 500 mg capsule 500 mg PO DAILY 02/13/20 06/17/21 pyridoxine (vitamin B6) 100 mg 100 mg PO DAILY 02/13/20 06/17/21 tablet Allergies Allergy/AdvReac Type Severity Reaction Status Date / Time adhesive tape Allergy Mild Rash Verified 06/18/21 19:15 codeine Allergy Unknown Unknown Verified 06/18/21 19:15 Review of Systems Review of Systems: All systems reviewed & are unremarkable except as noted in HPI and below Eyes: Eyes: Denies change in vision and Denies photophobia Cardiovascular: Cardiovascular: Denies chest pain and Denies radiating jaw, neck or arm pain Respiratory: Respiratory: Denies cough and Denies dyspnea Gastrointestinal: Gastrointestinal: Denies nausea and Denies vomiting Neurologic: Denies dizziness, Denies headache(s), Denies focal weakness and Denies numbness [facility] Past Medical History Medical History Amyloidosis, unspecified R ureter Bilateral shoulder pain Degenerative joint disease Emphysema lung GERD (gastroesophageal reflux disease) Hiatal hernia Hyperlipidemia Hypertension Lung nodule Other amyloidosis Pulmonary nodules Trochanteric bursitis Surgical History Surgical History History of back surgery Dr. Mena History of carpal tunnel release History of knee replacement Juan Family History Family History Mother Hypertension Diabetes mellitus Other Family history of arthritis Social History Social History Smoking status: Never smoker Second hand tobacco smoke exposure: No Alcohol intake: never Gender identity (if verbalized by the patient): Female Exam Narrative: GENERAL: Well-appearing, well-nourished, and in no acute distress. HEAD: Normocephalic, atraumatic. EYES: PERRL and EOMI. CHEST: Clear to auscultation. No respiratory distress. HEART: Regular rate and rhythm. Normal peripheral pulses. EXTREMITIES: Normal range of motion. No edema. SKIN: Warm, dry, no rash. NEURO: Alert and oriented x3. PSYCH: Normal mood and affect. Course Course Emergency Course: Unremarkable labs. Blood pressure has been variable between 170 and 200s. Discussed amlodipine for home, patient daughter would prefer to just keep a blood pressure diary and contact PCP Monday. Vital Signs Vital signs: Vital Signs Temperature 98.2 F 06/18/21 19:03 Pulse Rate 81 06/18/21 19:03 Respiratory Rate 16 06/18/21 19:03 Blood Pressure 206/89 H 06/18/21 19:03 Pulse Oximetry 96 06/18/21 19:03 Temperature 98.2 F 06/18/21 19:03 Pulse Rate 69 06/18/21 20:45 Respiratory Rate 14 06/18/21 20:45 Blood Pressure 178/74 H 06/18/21 21:00 Pulse Oximetry 98 06/18/21 20:45 Medical Decision Making Vital Signs Vital Signs: Vital Signs Temperature 98.2 F 06/18/21 19
== END 2021-06-18 21:56 | disposition home or self-care (01) ==
PROVIDERS: Emergency Provider Emergency Medicine; PCP Internal Medicine
DX: I10 Essential (primary) hypertension (principal); J43.9 Emphysema, unspecified; K21.9 Gastro-esophageal reflux disease without esophagitis; E78.5 Hyperlipidemia, unspecified; E85.89 Other amyloidosis; Z96.659 Presence of unspecified artificial knee joint
CPT/HCPCS: 36415; 80048; 84484; 93005; 99284

== ENCOUNTER 2021-06-21 09:04 | Outpatient (CLI) | payer MEDICARE, SELFPAY ==
--- NOTE | ~2021-06-21 | CT_ITS ---
EXAMINATION: CT chest high resolution wo vt EXAM DATE: 06/21/2021 09:38 INDICATION: R06.00 - Dyspnea, unspecified. TECHNIQUE: Spiral CT of the chest without contrast. HRCT. Axial, coronal and sagittal images of the chest were reviewed. Coronal maximum intensity pixel images of chest reviewed. The dose-length prod uct (DLP) for this examination was 127.54 mGy-cm. The exposure was tailored according to patient siz e (auto mA exposure control), and iterative reconstruction (ASIR) was used as additional dose reducti on technique. Comparison is made to prior examination from 05/03/2019. FINDINGS: Mild basilar intralobular septal thickening without honeycombing, probably chronic interst itial lung disease. There is mild bronchiectasis. There is a 4 mm right upper lobe nodule on image 36 unchanged, probably noncalcified granuloma. Another 4 mm noncalcified nodule, image 49, also stable. There is mild emphysema. Biapical opacities consistent with scarring. There are no pleural or peric ardial effusions. Tracheobronchial tree is patent. There is no mediastinal, hilar or axillary lym phadenopathy. There is no pneumothorax. Heart normal in size. There is mild coronary arterial c alcification, arterial sclerosis. Upper abdomen is unremarkable. Moderate sized thoracic bridging endplate osteophytes. There are no osteoblastic or osteolytic lesions identified. There is no signi ficant interval change. IMPRESSION: 1. Mild emphysema, bronchiectasis and chronic interstitial lung disease. 2. Postinfectious residua. 3. No interval change. Reviewed, dictated and finalized at location B.
== END 2021-06-21 09:05 | disposition home or self-care (01) ==
PROVIDERS: PCP Internal Medicine; Visit Provider Internal Medicine Pulmonary Disease
DX: R06.00 Dyspnea, unspecified (principal); J47.9 Bronchiectasis, uncomplicated; J98.4 Other disorders of lung; J43.9 Emphysema, unspecified
CPT/HCPCS: 71250

== ENCOUNTER 2021-07-14 10:00 | Outpatient (RCR) | payer MEDICARE, SELFPAY ==
--- NOTE | 2021-06-18 10:35 | OTOPEVAL ---
OCCUPATIONAL THERAPY INITIAL EVALUATION 06/18/21 Alberta is an 85 year-old, left handed female who presents to outpatient OT with reports of her right middle finger getting stuck . She states it doesn't happen everyday, but does report it happens frequently. Fabricated and issued an MCP immobilizer to help rest the tendon and reduce inflammation and triggering through the shayna. Plan to follow up with patient next week regarding splint fit and then 0-1x/week for the following 4 weeks. Thank you for referring Alberta Trejo to [facility].? The patient is scheduled to be seen for therapy? 0-1x/week for 4 weeks. Please review, sign, date and return this plan of care ANGIE. I agree with and certify that the following plan of care is medically necessary. Referring Physician Date Referring Provider: Jj Schneider DO *OT Outpatient Evaluation Start: 06/18/21 09:41 Therapy Assessment Status Assessment Status Assessment Status Evaluation Outpatient Past Medical History Past Medical History Source of Past Medical History Recalled from Previous Visit, Confirmed with Patient/Family Neurological History Hx Dementia Yes Cardiovascular History Hx Hypercholesterolemia Yes Hx Hypertension Yes Respiratory History Hx Chronic Obstructive Pulmonary Disease Yes (COPD) Gastrointestinal History Hx Gastroesophageal Reflux Disease Yes Musculoskeletal History Hx Arthritis Yes Evaluation Information Problem Diagnosis Pain in right hand Onset a few years Subjective Information Patient has reports of her Query Text:As Reported By Patient/ right middle finger getting Family stuck and having to use the left hand to straighten it back out again. States she had trigger finger release to the left middle finger many years ago. She has no pain associated with this. Prior Level of Function Activity Level (Last 3 Months) Hand Dominance Left Pain Assessment Timing of Pain Assessment Timing of Pain Assessment Assessment Self Report Self Report Pain Level 0 Pain Score Pain Score 0: Self Report Upper Extremity Range of Motion Finger Range of Motion Right Reason Not Measured WFL/Right Palpation Assessment Palpation Palpation No tenderness at the A1 shayna . No palpable nodule. Splint/Brace/Cast Assessment Splint and Bracing Assessment Right Finger, Middle Fabrication Clinician Made Splint/Brace/Cast Comments Trigger finger splint - MCP immobilizer, IPs free Reason For Splint/Brace/Cast Optimal Positioning,Pain Management Schedule
--- NOTE | 2021-07-14 10:35 | OTOPEVAL ---
OCCUPATIONAL THERAPY RE-ASSESSMENT AND DISCHARGE NOTE 07/14/21 Alberta has been wearing an MCP immobilizer x4 weeks to help rest the flexor tendons of the middle finger. Today she reports no changes in her symptoms, noting that the middle finger gets stuck at least once a day. Due to the chronicity of the condition, prognosis is guarded with conservative intervention. She may benefit from an injection. Recommend that she follows up with a hand specialist and in the meantime to continue to wear the splint to inhibit further inflammation. Discharging today with goals not met. Thank you for referring Alberta Trejo to [facility].? Please review, sign, date and return this D/C Note ANGIE. I agree with and certify that the following plan of care is medically necessary. Referring Physician Date Referring Provider: Jj Schneider DO *OT Outpatient Re-Evaluation Start: 06/18/21 09:41 Re-Evaluation Information Problem Diagnosis Pain in right hand Onset a few years Subjective Information Patient has reports good Query Text:As Reported By Patient/ compliance with splint wearing Family for the last 4 weeks. She reports no improvements in her symptoms, however. She reports the right middle finger gets stuck at least once a day and she has to use the left hand to straighten it out again. Pain Assessment Timing of Pain Assessment Timing of Pain Assessment Re-assessment Self Report Self Report Pain Level 0 Pain Score Pain Score 0: Self Report Upper Extremity Range of Motion Finger Range of Motion Right Reason Not Measured WFL/Right Palpation Assessment Palpation Palpation No tenderness at the A1 shayna. Palpation with active flexion/extension of the digit does have some slight popping, but no triggering noted today. Splint/Brace/Cast Assessment Splint and Bracing Assessment Right Finger, Middle Fabrication Clinician Made Splint/Brace/Cast Comments Trigger finger splint - MCP immobilizer, IPs free Reason For Splint/Brace/Cast Optimal Positioning,Pain Management Schedule While Awake, As Tolerated Site Condition Intact Tolerance Tolerates Well Splinting/Bracing/Casting Comments Discussed continuation of wearing the splint until further interventions are explored to help restrict her symptoms getting worse. OT Clinical Summary OT Clin
== END 2021-07-14 15:29 | disposition home or self-care (01) ==
LOC: ANHOT 10:00
PROVIDERS: PCP Internal Medicine; Visit Provider Internal Medicine
DX: M79.641 Pain in right hand (principal)
CPT/HCPCS: 97018; 97035; 97110; 97140; 97165; L3933

== ENCOUNTER 2021-08-28 11:10 | Emergency (ER) | payer MEDICARE, SELFPAY ==
[2021-08-28 11:20] VITALS: BP 109/79; PULSE 87; RESP 16; TEMP 37.2; O2SAT 100
--- NOTE | 2021-08-28 11:25 | ED.URI ---
HPI - URI/Sore Throat General Chief Complaint: Upper Respiratory Infection Stated Complaint: cough Time Seen by Provider: 08/28/21 11:26 Source: patient Mode of arrival: ambulatory Limitations: no limitations History of Present Illness HPI Narrative: Alberta Trejo is an 85 yo female with PMH HTN, COPD, mild dementia, who [facility] a [facility] cough. She has had no fever no nausea vomiting diarrhea no loss of sense of smell or taste states feels pretty much normal except for this irritating daily cough she states that she can sleep through the night with no problem and she feels really well rested Related Data Home Medications Medication Instructions Recorded Confirmed biotin 300 mcg tablet 300 mcg PO DAILY 02/13/20 08/28/21 calcium carbonate 600 mg calcium 600 mg PO DAILY 02/13/20 08/28/21 (1,500 mg) tablet magnesium 250 mg tablet 250 mg PO DAILY 02/13/20 08/28/21 rwdrkvwd-kzw-zrost acid 0.4 1 tablet PO DAILY 02/13/20 08/28/21 mg-lycopene 300 mcg-lutein 250 mcg tablet omega-3 fatty acids 500 mg capsule 500 mg PO DAILY 02/13/20 08/28/21 pyridoxine (vitamin B6) 100 mg 100 mg PO DAILY 02/13/20 08/28/21 tablet Allergies Allergy/AdvReac Type Severity Reaction Status Date / Time adhesive tape Allergy Mild Rash Verified 08/28/21 11:36 codeine Allergy Unknown Unknown Verified 08/28/21 11:36 Review of Systems Review of Systems: CONSTITUTIONAL: Denies fever, chills, sweats. EYES: Denies visual changes, redness, discharge. ENT: Denies rhinorrhea, congestion, sore throat, otalgia. CARDIOVASCULAR: Denies chest pain, palpitations, edema. RESPIRATORY: Denies dyspnea, wheezing, has cough GASTROINTESTINAL: Denies abdominal pain, nausea, vomiting, diarrhea. GENITOURINARY: Denies dysuria, hematuria, abnormal discharge SKIN: Denies rash or itching. NEUROLOGIC: Denies numbness, or focal weakness. PSYCHIATRIC: Denies anxiety or depression. [facility] Past Medical History Medical History Amyloidosis, unspecified R ureter Bilateral shoulder pain Degenerative joint disease Emphysema lung GERD (gastroesophageal reflux disease) Hiatal hernia Hyperlipidemia Hypertension Lung nodule Other amyloidosis Pulmonary nodules Trochanteric bursitis Surgical History Surgical History History of back surgery Dr. Mena History of carpal tunnel release History of knee replacement Juan Family History Family History Mother Hypertension Diabetes mellitus Other Family history of arthritis Social History Social History Smoking status: Never smoker Second hand tobacco smoke exposure: No Alcohol intake: never Gender identity (if verbalized by the patient): Female Comments At time of signature, I agree with nursing past medical, surgical, social and family history. There is no relevant family history pertinent to the presenting complaint. Exam Narrative: GENERAL: This is a well-nourished, well-developed patient, elderly female in no distress. HEAD: normocephalic, atraumatic. EYES: Sclera clear/white. Vision is grossly intact. EARS: External ears normal, auditory canals clear and without drainage, TMs normal without perforation. Hearing grossly intact. NOSE: External nose normal without nasal discharge, nares without redness, no rhinorrhea. THROAT: Mucous membranes moist, posterior pharynx mild erythema NECK: Neck supple, non-tender CARDIOVASCULAR: Regular rate and rhythm without murmurs, gallops, or rubs. RESPIRATORY: Clear to auscultation. Breath sounds equal bilaterally. No wheezes, rales, or rhonchi. Mild nonproductive cough GASTROINTESTINAL: Abdomen soft, SKIN: warm, intact with no suspicious lesions or rash, good texture and turgor. NEURO: awake, alert, and oriented to person,
== END 2021-08-28 12:15 | disposition home or self-care (01) ==
PROVIDERS: Emergency Provider Nurse Practitioner; PCP Internal Medicine
DX: U07.1 COVID-19 (principal); I10 Essential (primary) hypertension; J44.9 Chronic obstructive pulmonary disease, unspecified; F03.90 Unspecified dementia, unspecified severity, without behavioral disturbance, psychotic disturbance, mood disturbance, and anxiety; K21.9 Gastro-esophageal reflux disease without esophagitis; R78.5 Finding of other psychotropic drug in blood; Z96.659 Presence of unspecified artificial knee joint
CPT/HCPCS: 87426; 99213; C9803; G0463

== ENCOUNTER 2021-08-30 07:56 | Emergency (ER) | payer MEDICARE, SELFPAY ==
[2021-08-30] VITALS (11 sets, daily range): BP systolic 116–151; BP diastolic 47–75; PULSE 74–95; RESP 19–29; TEMP 37.6; O2SAT 94–100
--- NOTE | ~2021-08-30 | XR_ITS ---
EXAMINATION: XR chest 1V portable EXAM DATE: 08/30/2021 08:47 INDICATION: Chest pain, cough. TECHNIQUE: Portable AP frontal chest x-ray was obtained. Comparison is made to prior examination from 04/16/2021. FINDINGS: The lungs are clear. There are no pleural effusions. The cardiomediastinal silhouette is p rominent but magnified on this AP technique. There is no pneumothorax suspected. Lumbar fusion mejia rdware. There is aortic arteriosclerosis. IMPRESSION: No acute cardiopulmonary findings. Reviewed, dictated and finalized at location A. MANUFACTURER
[2021-08-30] MEDS: ACETAMINOPHEN 325 MG TABLET 650 MG PO (08:27)
--- NOTE | 2021-08-30 08:33 | ECG_ITS ---
Measurements Intervals [place] Rate: 71 P: 73 AL: 145 QRS: 25 QRSD: 92 T: 8 QT: 348 QTc: 380 Interpretive Statements SINUS RHYTHM BASELINE ARTIFACT- V2-V2, V5 NORMAL ECG Electronically Signed On 08-30-2021 8:58:59 LEARNING AND DEVELOPMENT COORDINATOR by Jermaine Lugo D.O.
--- NOTE | 2021-08-30 08:37 | ED.SOB ---
HPI - SOB/Dyspnea General Chief Complaint: Shortness of Breath/Dyspnea Stated Complaint: COVID, sob Time Seen by Provider: 08/30/21 08:09 Source: patient Mode of arrival: ambulatory Limitations: no limitations History of Present Illness HPI Narrative: Patient is an 85-year-old female complaining of cough, productive, whitish sputum accompanied by body aches and fever started 4 days ago. Patient states that her shortness of breath is nothing new, it is chronic and its not more than usual. Patient states that the reason why she is here is because she could not sleep last night due to constant coughing. Patient states that she tested positive for Covid 3 days ago. Patient states that she is fully vaccinated. Patient denies any chest pain, abdominal pain, nausea, vomiting or diarrhea. Related Data Home Medications Medication Instructions Recorded Confirmed biotin 300 mcg tablet 300 mcg PO DAILY 02/13/20 08/28/21 calcium carbonate 600 mg calcium 600 mg PO DAILY 02/13/20 08/28/21 (1,500 mg) tablet magnesium 250 mg tablet 250 mg PO DAILY 02/13/20 08/28/21 peifdcab-hvh-otnzg acid 0.4 1 tablet PO DAILY 02/13/20 08/28/21 mg-lycopene 300 mcg-lutein 250 mcg tablet omega-3 fatty acids 500 mg capsule 500 mg PO DAILY 02/13/20 08/28/21 pyridoxine (vitamin B6) 100 mg 100 mg PO DAILY 02/13/20 08/28/21 tablet Allergies Allergy/AdvReac Type Severity Reaction Status Date / Time adhesive tape Allergy Mild Rash Verified 08/30/21 08:04 codeine Allergy Unknown Unknown Verified 08/30/21 08:04 [facility] Past Medical History Medical History Amyloidosis, unspecified R ureter Bilateral shoulder pain Degenerative joint disease Emphysema lung GERD (gastroesophageal reflux disease) Hiatal hernia Hyperlipidemia Hypertension Lung nodule Other amyloidosis Pulmonary nodules Trochanteric bursitis Surgical History Surgical History History of back surgery Dr. Mena History of carpal tunnel release History of knee replacement Juan Family History Family History Mother Hypertension Diabetes mellitus Other Family history of arthritis Social History Social History Smoking status: Never smoker Second hand tobacco smoke exposure: No Alcohol intake: never Gender identity (if verbalized by the patient): Female Exam Const: General: cooperative, healthy appearing, comfortable, no acute distress, well developed, alert and awake; No confusion Orientation/consciousness: oriented to person, oriented to place, oriented to time, patient oriented x3 and No confusion Limitations: no limitations HENMT: Head: normal to inspection, normocephalic and atraumatic Ears: hearing grossly normal bilaterally, TM normal on the right and TM normal on the left General nose exam: Normal external nose present, Normal nares present and No nasal discharge present Face and sinus: normal facial exam Mouth: Yes Normal oral and palatal mucosa present, Yes lip normal, Yes tongue normal and Yes oropharynx normal Throat: posterior oropharynx normal, tonsils normal and uvula midline Eyes: General: appearance normal, both eyes and all related structures Pupils: Equal, round and reactive pupils present EOM: EOMs intact bilaterally Neck: Neck: normal visual inspection, full ROM, no lymphadenopathy and no meningeal signs Chest: Chest palpation & inspection: normal inspection of the chest Resp: Effort & Inspection: normal respiratory effort, able to speak in complete sentences, no respiratory distress and not tachypneic Auscultation: clear to auscultation bilaterally, no crackles, no rales, no rhonchi and no wheezes Cardio: Rate: regular rate Rhythm: regular rhythm GI: Inspection: normal to inspection GI Palp: No abdominal tenderness,
[2021-08-30 08:39] LABS: Basophils Percent Auto 0.1 % (0.2-1.2); Eosinophils Percent Auto 0.3 % (0-4.4); Hematocrit 34.6 % (37.0-47.0); Hemoglobin 12.2 g/dL (12.0-15.0); Immature Granulocyte Absolute 0.02 K/mm3 (0.00-0.031); Immature Granulocyte Percent A 0.3 % (0-0.5); Lymphocytes Absolute Auto 1.24 K/mm3 (0.9-3.2); Lymphocytes Percent Auto 17.9 % (18.3-44.2); Mean Corpuscular HGB Conc 35.3 g/dl (32-36); Mean Corpuscular Hemoglobin 36.7 pg (26-34); Mean Corpuscular Volume 104.2 fl (80-100); Mean Platelet Volume 9.7 fl (7.4-10.4); Monocytes Absolute Auto 0.8 K/mm3 (0.1-0.6); Monocytes Percent Auto 11.3 % (2.6-8.5); Neutrophils Absolute Auto 4.9 K/mm3 (1.3-6.7); Neutrophils Percent Auto 70.1 % (45.5-73.1); Platelet Count Result 150 k/mm3 (150-375); Red Blood Count 3.32 M/mm3 (4.2-5.4); White Blood Count 6.9 K/mm3 (4.5-10.0)
[2021-08-30] MEDS: IPRATROPIUM BR 0.02% INH SOLN 0.5 MG/2.5 ML VIAL INHALATION (08:50)
[2021-08-30] MEDS: ALBUTEROL SULFATE NEB 2.5 MG/0.5 ML INH 5 MG INHALATION (08:50)
[2021-08-30 09:00] LABS: Alanine Aminotransferase 22 U/L (4-35); Albumin Level 3.7 g/dL (3.5-5.1); Alkaline Phosphatase 77 U/L (38-126); Anion Gap 5 mmol/L (8-16); Aspartate Amino Transferase 34 U/L (14-36); Bilirubin,Total 0.4 mg/dL (0.2-1.3); Blood Urea Nitrogen 15 mg/dL (7-17); Calcium 9.5 mg/dL (8.4-10.2); Carbon Dioxide 29 mmol/L (22-30); Chloride 100 mmol/L (98-107); Estimated CRCL calculation 38 ml/min; Estimated Glomerular Filt Rate > 60; Glucose 95 mg/dL (65-110); Lactic Acid Reflex 0.7 mmol/L (0.7-2.1); Potassium 3.6 mmol/L (3.4-5.0); Sodium 134 mmol/L (137-145)
[2021-08-30 09:11] LABS: NT Pro B Type Natriuretic Pept 855 pg/mL (5-100); Troponin I < 0.012 ng/mL (0.000-0.034)
== END 2021-08-30 10:16 | disposition home or self-care (01) ==
PROVIDERS: Emergency Provider Emergency Medicine; PCP Internal Medicine
DX: U07.1 COVID-19 (principal); J43.9 Emphysema, unspecified; K21.9 Gastro-esophageal reflux disease without esophagitis; E78.5 Hyperlipidemia, unspecified; I10 Essential (primary) hypertension; E85.89 Other amyloidosis; Z96.659 Presence of unspecified artificial knee joint
CPT/HCPCS: 36415; 71045; 80053; 83605; 83880; 84484; 85025; 93005; 94640; 96374; 99284; A9270; J1100

== ENCOUNTER 2021-11-02 09:45 | Outpatient (CLI) | payer MEDICARE, SELFPAY ==
--- NOTE | ~2021-11-02 | XR_ITS ---
EXAMINATION: XR lg joint inject/asp w image DATE: 11/02/2021 10:33 INDICATION: Unilateral primary osteoarthritis, right hip. TECHNIQUE: A time-out was performed to verify the patient's name, date of , and procedure to b e performed. The procedure including the risks, benefits, and alternatives was discussed with the pat ient. Risks discussed included bleeding and infection. The patient understood the risks and agreed to proceed. The skin overlying the right hip joint was prepped and draped in usual sterile fashion. A nesthetic was administered with 1% lidocaine subcutaneously. A 22 G needle was advanced under fluoro scopic guidance into the joint. Injection of 1 mL of Omnipaque 240 confirmed intra-articular positio n of the needle. Subsequently, injectate consisting of 5 mL 1% lidocaine and 2 mL 10 mg/mL Kenalog w as instilled. The needle was removed and the entry site was cleaned and dressed. There were no imme diate complications. Fluoroscopy exposure time was 0.1 minutes. The total number of images was 2. FINDINGS: Real-time fluoroscopy demonstrates the needle in the right hip joint. Patient's pain prior to procedure:7/10. Patient's pain following the procedure: 0/10. IMPRESSION: 1. Fluoroscopy guided right hip joint injection of local anesthetic and steroid with decrease in the patient's presenting pain. Reviewed, dictated and finalized at location A. GHT FORWARDER
== END 2021-11-02 09:46 | disposition home or self-care (01) ==
LOC: ANHIMG 09:49
PROVIDERS: PCP Internal Medicine; Visit Provider Orthopaedic Surgery
DX: M16.11 Unilateral primary osteoarthritis, right hip (principal)
CPT/HCPCS: 20610; 77002; J3301; Q9966

== ENCOUNTER 2021-12-14 07:03 | Outpatient (CLI) | payer MEDICARE, SELFPAY ==
[2021-12-14 08:33] LABS: Free T4 Free Thyroxine 1.55 ng/mL (0.78-2.19)
== END 2021-12-14 07:04 | disposition home or self-care (01) ==
LOC: ANHLAB 07:05
PROVIDERS: PCP Internal Medicine; Visit Provider Internal Medicine
DX: E03.9 Hypothyroidism, unspecified (principal)
CPT/HCPCS: 36415; 84439; 84443

== ENCOUNTER 2022-02-17 08:05 | Outpatient (RCR) | payer MEDICARE, SELFPAY ==
--- NOTE | 2022-02-17 10:32 | PTOPEVAL ---
PHYSICAL THERAPY INITIAL EVALUATION. Thank you for referring Alberta Trejo to [facility].? The patient is scheduled to be seen for therapy?1x/week for 4 weeks. Please review, sign, date and return this plan of care ANGIE. I agree with and certify that the following plan of care is medically necessary. Referring Physician Date Attending Provider: Jj Schneider DO *PT Outpatient Evaluation Start: 02/17/22 Evaluation Information Diagnosis R arm pain Onset ~3 months Subjective Information Pt states she has always been Query Text:As Reported By Patient/ getting shots in her arm from Family Dr. Martinez, for years. She states recently these have not been working well. Pt states both arms are sore Pain Assessment Right Upper Arm(s) Reported Pain Level 1 Pain Description Sharp,Soreness Greatest Pain Intensity 6 Pain Aggravating Factors Exercise/Activity,Lifting Upper Extremity Range of Motion Gross Upper Extremity Range of Motion shoulder flexion ~120 deg elissa Comments - equal limited but functional Upper Extremity Muscle Strength Testing Gross Upper Extremity Strength Comments Elissa shoulder flexion 4-/5 Elissa shoulder abd 3+/5 elissa shoulder IR/ext rot 4/5 elissa elbow flex/extension 4/5 Posture Posture Evaluation View Posterior Thoracic Spine Posture Flattened Lumbar Spine Posture Flattened Shoulder Posture (L) Rounded,(R) Rounded Arm Posture (L) Neutral,(R) Neutral Palpation Assessment Palpation mid shalf of the humerus Shoulder Special Tests Empty Can (supraspinatus) Test Negative Left,Negative Right Painful Arc Negative Left,Negative Right Drop Arm Test Negative Left,Negative Right Speed's Test Negative Left,Negative Right PT Clinical Summary Alberta is a 86 y/o who presents to therapy today for her initial evaluation with a diagnosis of R arm pain. Today she demonstrates equally weak and equally limited shoulder strength and ROM. She is limited in her ability to reach over head without intermittent pain. Skilled physical therapy services are indicated to address the deficits noted above, to manage pain, and to promote
--- NOTE | 2022-02-23 09:45 | PCPTNOTE ---
Attending Provider: Jj Schneider DO Patient:Alberta Trejo Date of :1935 Patient called and cancelled her remaining appointments and would like to be discharged from therapy at this time. She is having significant shortness of breath and states figuring out what is going on there has to be her priority. Patient?s initial visit was on 02/17/2022 and she had a total of 1 visits. Thank you for referring this patient to [facility]. Please review, sign, date and return this discharge summary ANGIE. I have been updated about the patient's current status and I agree with discharge from the above service at this time. Referring Physician Date
== END 2022-02-23 16:20 | disposition home or self-care (01) ==
LOC: ANHPT 08:05
PROVIDERS: PCP Internal Medicine; Visit Provider Internal Medicine
DX: M79.601 Pain in right arm (principal)
CPT/HCPCS: 97110; 97161

== ENCOUNTER 2022-02-18 13:04 | Emergency (ER) | payer MEDICARE, SELFPAY ==
--- NOTE | ~2022-02-18 | XR_ITS ---
EXAMINATION: XR chest 2V DATE: 02/18/2022 14:24 INDICATION: Shortness of breath with exertion TECHNIQUE: Frontal and lateral views of the chest are obtained COMPARISON: 08/30/2021 FINDINGS: There are minimal bibasilar airspace opacities. The lungs are hyperinflated. There is no pl eural effusion or pneumothorax. The cardiomediastinal silhouette is normal. There is severe thoracic spondylosis. There are partially imaged changes of lumbar fusion. IMPRESSION: 1. Minimal bibasilar airspace opacities, consistent with atelectasis versus pneumonia. Reviewed, dictated and finalized at location A. IMPRESSION: 1. Minimal bibasilar airspace opacities, consistent with atelectasis versus pne umonia.
--- NOTE | ~2022-02-18 | CT_ITS ---
EXAMINATION: CTA chest PE protocol DATE: 02/18/2022 16:47 INDICATION: Dyspnea. Elevated d-dimer. TECHNIQUE: Computed tomography angiography (CTA) of the chest was performed with 100 mL Omnipaque-350 intravenous contrast timed to evaluate the pulmonary arteries. Coronal maximum intensity projection 3D-reconstructions were created by the technologist. Automated exposure control and iterative reconst ruction technique were employed. Exam dose: 159.28 mGy-cm total exam DLP. COMPARISON: 02/18/2022 PA and lateral chest 06/21/2021 CT chest high resolution scan FINDINGS: There is diagnostic contrast enhancement of the pulmonary arteries and no evidence of pulmo nary embolism. No thoracic aortic aneurysm. Normal heart size. No pericardial or pleural effusion. No hilar or mediastinal mass lesion or lymphadenopathy. Chronic bilateral apical scarring. Mild emphysematous changes. There is some interlobular septal thic kening in the dependent right lower lobe primarily which may represent chronic interstitial change, p ossible minimal superimposed atelectasis or infiltrate. No interval suspicious pulmonary mass lesion is noted. There is approximately 3 mm anterolisthesis at C6-7. Chronic mild anterior wedge compression fracture of T4 vertebral body. Degenerative changes of the th oracic spine. No suspicious osteolytic or osteoblastic lesions are noted. Small sliding hiatal hernia. IMPRESSION: No evidence of pulmonary embolism Reviewed, dictated and finalized at Location A. Reviewed, dictated and finalized at location B.
[2022-02-18 13:09] VITALS: BP 124/49; PULSE 82; RESP 16; TEMP 36.4; O2SAT 98
--- NOTE | 2022-02-18 13:14 | ECG_ITS ---
Measurements Intervals [place] Rate: 75 P: 65 AR: 190 QRS: 32 QRSD: 91 T: 22 QT: 352 QTc: 396 Interpretive Statements SINUS RHYTHM BASELINE ARTIFACT- I, II, III, AVR, AVL, AVF, V4-V6 NORMAL ECG Electronically Signed On 02-18-2022 13:55:51 CDT by Jermaine Lugo D.O.
[2022-02-18 14:05] LABS: Basophils Percent Auto 0.5 % (0.2-1.2); Eosinophils Absolute Auto 0.1 K/mm3 (0-0.3); Eosinophils Percent Auto 1.8 % (0-4.4); Hematocrit 38.4 % (37.0-47.0); Hemoglobin 13.2 g/dL (12.0-15.0); Immature Granulocyte Absolute 0.02 K/mm3 (0.00-0.031); Immature Granulocyte Percent A 0.3 % (0-0.5); Lymphocytes Absolute Auto 1.91 K/mm3 (0.9-3.2); Lymphocytes Percent Auto 25.7 % (18.3-44.2); Mean Corpuscular HGB Conc 34.4 g/dl (32-36); Mean Corpuscular Hemoglobin 35.5 pg (26-34); Mean Corpuscular Volume 103.2 fl (80-100); Mean Platelet Volume 9.5 fl (7.4-10.4); Monocytes Absolute Auto 0.6 K/mm3 (0.1-0.6); Monocytes Percent Auto 7.4 % (2.6-8.5); Neutrophils Absolute Auto 4.8 K/mm3 (1.3-6.7); Neutrophils Percent Auto 64.3 % (45.5-73.1); Platelet Count Result 192 k/mm3 (150-375); Red Blood Count 3.72 M/mm3 (4.2-5.4); Red Cell Distribution Width 11.9 % (11.5-14.5); White Blood Count 7.4 K/mm3 (4.5-10.0)
[2022-02-18 14:19] LABS: Alanine Aminotransferase 18 U/L (6-35); Alkaline Phosphatase 74 U/L (38-126); Anion Gap 7 mmol/L (8-16); Aspartate Amino Transferase 34 U/L (14-36); Bilirubin,Total 0.4 mg/dL (0.2-1.3); Blood Urea Nitrogen 37 mg/dL (7-17); Calcium 9.3 mg/dL (8.4-10.2); Carbon Dioxide 27 mmol/L (22-30); Chloride 101 mmol/L (98-107); Estimated CRCL calculation 31 ml/min; Estimated Glomerular Filt Rate > 60; Glucose 129 mg/dL (65-110); Potassium 4.1 mmol/L (3.4-5.0); Sodium 135 mmol/L (137-145)
--- NOTE | 2022-02-18 15:44 | ED.SOB ---
HPI - SOB/Dyspnea General Chief Complaint: Shortness of Breath/Dyspnea Stated Complaint: short of breath Time Seen by Provider: 02/18/22 15:10 Source: RN notes reviewed History of Present Illness HPI Narrative: Patient presents emergency room from home for shortness of breath. Patient states she has had chronic shortness of breath over the past 3 to 4 months that she has had worked up by human resources partner as well as other specialist she states morning she went to cook breakfast and was feeling more short of breath and weak states she is feeling better at this time. She states that shortness of breath is worse than normal and worse with exertion. She denies any fevers or chills chest pain abdominal pain nausea vomiting or any other symptom Related Data Home Medications Medication Instructions Recorded Confirmed calcium carbonate 600 mg calcium 600 mg PO DAILY 02/13/20 02/08/22 (1,500 mg) tablet omega-3 fatty acids 500 mg capsule 1,000 mg PO DAILY 02/13/20 02/08/22 pyridoxine (vitamin B6) 100 mg 100 mg PO DAILY 02/13/20 02/08/22 tablet cholecalciferol (vitamin D3) 50 50 mcg PO DAILY 01/03/22 02/08/22 mcg (2,000 unit) capsule Allergies Allergy/AdvReac Type Severity Reaction Status Date / Time adhesive tape Allergy Mild Rash Verified 02/18/22 16:18 codeine Allergy Unknown Unknown Verified 02/18/22 16:18 Review of Systems Review of Systems: Gen.: Denies fevers or chills ENT: Denies congestion Respiratory: See HPI CV: Denies chest pain GI: Denies abdominal pain nausea, emesis or diarrhea Musculoskeletal: Denies back pain or muscle pain Neuro: Denies numbness, tingling, weakness or focal weakness Skin: Denies rash Except as documented, all other systems reviewed and negative [facility] Past Medical History Medical History Amyloidosis, unspecified R ureter Bilateral shoulder pain Degenerative joint disease Emphysema lung GERD (gastroesophageal reflux disease) Hiatal hernia Hyperlipidemia Hypertension Lung nodule Osteoarthritis of hips, bilateral Other amyloidosis Pulmonary nodules Trochanteric bursitis Surgical History Surgical History History of back surgery Dr. Mena History of carpal tunnel release History of knee replacement [place] Family History Family History Mother Hypertension Diabetes mellitus Other Family history of arthritis Social History Social History Second hand tobacco smoke exposure: No Alcohol intake: never Gender identity (if verbalized by the patient): Female Spiritual care concerns: No Exam Narrative: APPEARANCE: No acute distress, nontoxic, resting in bed EYES: EOMI HEENT: Normocephalic, atraumatic, OMM RESPIRATORY: No respiratory distress Clear to auscultation bilaterally with no rhonchi wheezing or rales. CARDIOVASCULAR: Regular rate and rhythm without murmurs rubs or gallops. ABDOMINAL: Soft, nontender, nondistended, no rebound or guarding MUSCULOSKELETAl: Moves all extremities. No clubbing, cyanosis or edema. NEURO: Awake and alert. Following commands, speech normal, no focal deficits SKIN:: Warm, dry. No rashes lesions or abrasions PSYCHIATRIC: Normal affect/mood, Course Course Emergency Course: Patient has felt much better since being in the ER able to get up and ambulate in the ED with normal walking pulse ox Discussed with patient results of workup and diagnosis. Discussed need for follow-up with primary care, proper use of medication, and reasons to return to the emergency department. Patient understands and agrees to current treatment plan patient states she no longer has a inhaler at home will give inhaler refilled Vital Signs Vital signs: Vital Signs Temperature 97.5 F L 02/18/22 13:09 Pulse Rate 82 02/18/22 13:09 Respiratory R
[2022-02-18 15:46] LABS: INR 1.1; Partial Thromboplastin Time 26.3 SECONDS (22.3-36.8); Prothrombin Time 13.6 Seconds (11.1-14.7)
[2022-02-18 15:48] LABS: D Dimer 0.64 ug/mL (<0.48)
[2022-02-18 15:57] LABS: NT Pro B Type Natriuretic Pept 469 pg/mL (5-100); Troponin I < 0.012 ng/mL (0.000-0.034)
[2022-02-18 16:16] VITALS: O2SAT 100
[2022-02-18 16:17] VITALS: BP 134/58; PULSE 63; RESP 19; O2SAT 100
[2022-02-18 17:13] LABS: Add Urine Microscopic? NO; Appearance Urine Clear (Clear); Bilirubin Urine Negative (Negative); Blood Urine Negative (Negative); Color Urine Yellow (Yellow); Glucose Urine UA Negative (Negative); Ketones Urine Negative (Negative); Leukocyte Esterase Ur Negative LEU/UL (Negative); Nitrate Urine Negative (Negative); Protein Urine Negative (Negative); Specific Grav Ur <= 1.005 (1.001-1.035); Urobilinogen Urine 0.2 mg/dL (<2.0)
--- NOTE | 2022-02-18 17:35 | PC.NURSE ---
walked pt w/ pulse ox per EDP Juliann. Pt's o2 saturation was 95% while ambulating.
== END 2022-02-18 18:27 | disposition home or self-care (01) ==
PROVIDERS: Emergency Medicine; Emergency Provider Emergency Medicine; PCP Internal Medicine
DX: R06.00 Dyspnea, unspecified (principal); J43.9 Emphysema, unspecified; K21.9 Gastro-esophageal reflux disease without esophagitis; E78.5 Hyperlipidemia, unspecified; I10 Essential (primary) hypertension; E85.4 Organ-limited amyloidosis; M16.0 Bilateral primary osteoarthritis of hip; Z96.659 Presence of unspecified artificial knee joint; R91.8 Other nonspecific abnormal finding of lung field
CPT/HCPCS: 36415; 71046; 71275; 80053; 81003; 83880; 84484; 85025; 85380; 85610; 85730; 93005; 99284; Q9967

== ENCOUNTER 2022-12-23 07:17 | Outpatient (CLI) | payer MEDICARE, SELFPAY ==
[2022-12-23 08:15] LABS: Alanine Aminotransferase 23 U/L (6-35); Albumin Level 4.3 g/dL (3.5-5.1); Alkaline Phosphatase 91 U/L (38-126); Anion Gap 4 mmol/L (8-16); Aspartate Amino Transferase 31 U/L (14-36); Bilirubin,Total 0.8 mg/dL (0.2-1.3); Blood Urea Nitrogen 21 mg/dL (7-17); Calcium 9.9 mg/dL (8.4-10.2); Carbon Dioxide 31 mmol/L (22-30); Chloride 106 mmol/L (98-107); Estimated Glomerular Filt Rate > 60; Glucose 113 mg/dL (65-110); Potassium 3.9 mmol/L (3.4-5.0); Sodium 141 mmol/L (137-145)
[2022-12-23 08:33] LABS: Free T4 Free Thyroxine 1.57 ng/mL (0.78-2.19)
[2022-12-23 08:36] LABS: Basophils Percent Auto 0.4 % (0.2-1.2); Eosinophils Absolute Auto 0.2 K/mm3 (0-0.3); Eosinophils Percent Auto 2.5 % (0-4.4); Hematocrit 38.9 % (37.0-47.0); Hemoglobin 13.4 g/dL (12.0-15.0); Immature Granulocyte Absolute 0.02 K/mm3 (0.00-0.031); Immature Granulocyte Percent A 0.3 % (0-0.5); Lymphocytes Absolute Auto 2.28 K/mm3 (0.9-3.2); Lymphocytes Percent Auto 32.1 % (18.3-44.2); Mean Corpuscular HGB Conc 34.4 g/dl (32-36); Mean Corpuscular Hemoglobin 35.1 pg (26-34); Mean Corpuscular Volume 101.8 fl (80-100); Mean Platelet Volume 9.3 fl (7.4-10.4); Monocytes Absolute Auto 0.6 K/mm3 (0.1-0.6); Monocytes Percent Auto 8.7 % (2.6-8.5); Platelet Count Result 214 k/mm3 (150-375); Red Blood Count 3.82 M/mm3 (4.2-5.4); Red Cell Distribution Width 12.6 % (11.5-14.5); White Blood Count 7.1 K/mm3 (4.5-10.0)
[2022-12-23 09:18] LABS: Folic Acid > 20.0 ng/mL (2.76->20)
== END 2022-12-23 07:18 | disposition home or self-care (01) ==
PROVIDERS: PCP Internal Medicine; Visit Provider Internal Medicine
DX: E03.9 Hypothyroidism, unspecified (principal); E53.8 Deficiency of other specified B group vitamins; I10 Essential (primary) hypertension
CPT/HCPCS: 36415; 80053; 82607; 82746; 84439; 84443; 85025

== ENCOUNTER 2023-01-27 10:05 | Emergency (ER) | payer MEDICARE, SELFPAY ==
[2023-01-27] VITALS (12 sets, daily range): BP systolic 125–152; BP diastolic 48–74; PULSE 68–117; RESP 13–30; TEMP 36.6; O2SAT 90–100
--- NOTE | ~2023-01-27 | XR_ITS ---
XR chest 2V 01/27/2023 10:51 Indication: Shortness of breath. Hypertension. Procedure: PA and lateral views of the chest Comparison: Comparison to multiple prior studies sequentially, with oldest reviewed study dated 06/2021. Findings: Chronic bibasilar atelectasis/scarring. Heart size normal. No focal pneumonia, edema, pleur al effusion or pneumothorax. The lungs are hyperinflated which is consistent with, but not diagnostic of chronic obstructive pulmonary disease. There are surgical changes of the lumbar spine, partially visualized. Moderate thoracic spondylosis. Impression: 1: No acute cardiopulmonary disease. Reviewed, dictated and finalized at location A. Impression: 1: No acute cardiopulmonary disease.
--- NOTE | 2023-01-27 10:17 | ECG_ITS ---
Measurements Intervals [place] Rate: 114 P: 198 PA: 187 QRS: 18 QRSD: 93 T: -8 QT: 307 QTc: 424 Interpretive Statements ATRIAL tACHYCARDIA NONSPECIFIC ST & T-WAVE ABNORMALITY ABNORMAL RHYTHM ECG COMPARED TO ECG 02/18/2022 13:43:00 HEART RATE IS INCREASED, T-WAVE MORPHOLOGY MAY BE INDICATIVE OF AN ECTOPIC NON SINUS ATRIAL FOCUS Electronically Signed On 01-27-2023 15:33:30 CDT by Daniel Alves M.D.
--- NOTE | 2023-01-27 10:34 | ED.SOB ---
HPI - SOB/Dyspnea General Chief Complaint: Shortness of Breath/Dyspnea Stated Complaint: SOB Time Seen by Provider: 01/27/23 10:23 History of Present Illness HPI Narrative: Patient presenting with dyspnea, has had symptoms like this on and off for years at this time, with extensive negative work-up and has also seen a specialist was not found anything wrong with her. Per daughter, she feels this is likely attributed to anxiety, in fact since patient came to the ER she is feeling better already. Related Data Home Medications Medication Instructions Recorded Confirmed calcium carbonate 600 mg calcium 600 mg PO DAILY 02/13/20 12/21/22 (1,500 mg) tablet (Calcium) omega-3 fatty acids 500 mg capsule 1,000 mg PO DAILY 02/13/20 12/21/22 pyridoxine (vitamin B6) 100 mg 100 mg PO DAILY 02/13/20 12/21/22 tablet cholecalciferol (vitamin D3) 50 50 mcg PO DAILY 01/03/22 12/21/22 mcg (2,000 unit) capsule Allergies Allergy/AdvReac Type Severity Reaction Status Date / Time adhesive tape Allergy Mild Rash Verified 01/27/23 10:24 codeine Allergy Unknown Unknown Verified 01/27/23 10:24 Review of Systems Review of Systems: CONST: No fever. HEENT: No sore throat C/V: No chest pain RESP: Difficulty breathing GI: No abdominal pain : No dysuria. M/S: No joint pain. SKIN: No rash. NEURO: [No headache or focal numbness or weakness] PSYCH: Anxious PMFSH Past Medical History Medical History Amyloidosis, unspecified R ureter Bilateral shoulder pain Degenerative joint disease Emphysema lung GERD (gastroesophageal reflux disease) Hiatal hernia Hyperlipidemia Hypertension Lung nodule Osteoarthritis of hips, bilateral Other amyloidosis Pulmonary nodules Trochanteric bursitis Surgical History Surgical History History of back surgery Dr. Mena History of carpal tunnel release History of knee replacement [place] Family History Family History Mother Hypertension Diabetes mellitus Other Family history of arthritis Social History Social History Smoking status: Never smoker Second hand tobacco smoke exposure: No Alcohol intake: never Lack of Transportation: No Current Housing: I Have Housing Concerned About Future Housing: No Difficulty Paying Gas/Electric Bills: No Difficulty Paying for Meds: No Currently Unemployed: No Education: High School Diploma/GED Difficulty w/ Childcare or Family Care: No Living arrangements: alone Occupation/Education: retired Gender identity (if verbalized by the patient): Female Spiritual care concerns: No Exam Narrative: EXAMINATION OF ORGAN SYSTEMS/BODY AREAS: Constitutional: Vital signs per nursing GENERAL:[Slightly anxious, non-toxic appearing.] HEAD: Normal with no signs of head trauma. EYES: EOMI, conjunctiva normal ENT: Hearing grossly intact LUNGS: Nonlabored breathing. CTAB, speaking full sentences HEART: Tachycardic ABD: [Soft], [nontender to palpation] EXT: Normal range of motion SKIN: [No rashes or lesions.] NEURO: [Alert and oriented x 3. No gross focal sensory or strength deficits.] PSYCH: Slightly anxious affect Course Vital Signs Vital signs: Vital Signs Temperature 97.9 F 01/27/23 10:18 Pulse Rate 117 H 01/27/23 10:18 Respiratory Rate 30 H 01/27/23 10:18 Blood Pressure 125/48 L 01/27/23 10:18 Pulse Oximetry 99 01/27/23 10:18 Oxygen Delivery Room Air 01/27/23 10:18 Temperature 97.9 F 01/27/23 10:18 Pulse Rate 74 01/27/23 12:33 Respiratory Rate 18 01/27/23 12:33 Blood Pressure 139/74 01/27/23 12:33 Pulse Oximetry 99 01/27/23 12:33 Oxygen Delivery Room Air 01/27/23 10:18 MDM - SOB/Dyspnea MDM Narrative Medical decision making narrative: 87-year-old female presenting here wi
[2023-01-27 10:35] LABS: Basophils Percent Auto 0.6 % (0.2-1.2); Eosinophils Absolute Auto 0.1 K/mm3 (0-0.3); Eosinophils Percent Auto 1.2 % (0-4.4); Hematocrit 35.9 % (37.0-47.0); Hemoglobin 12.3 g/dL (12.0-15.0); Immature Granulocyte Absolute 0.01 K/mm3 (0.00-0.031); Immature Granulocyte Percent A 0.2 % (0-0.5); Lymphocytes Absolute Auto 2.32 K/mm3 (0.9-3.2); Lymphocytes Percent Auto 36.2 % (18.3-44.2); Mean Corpuscular HGB Conc 34.3 g/dl (32-36); Mean Corpuscular Hemoglobin 35.2 pg (26-34); Mean Corpuscular Volume 102.9 fl (80-100); Mean Platelet Volume 9.3 fl (7.4-10.4); Monocytes Absolute Auto 0.8 K/mm3 (0.1-0.6); Monocytes Percent Auto 12.5 % (2.6-8.5); Neutrophils Absolute Auto 3.2 K/mm3 (1.3-6.7); Neutrophils Percent Auto 49.3 % (45.5-73.1); Platelet Count Result 183 k/mm3 (150-375); Red Blood Count 3.49 M/mm3 (4.2-5.4); Red Cell Distribution Width 12.2 % (11.5-14.5); White Blood Count 6.4 K/mm3 (4.5-10.0)
[2023-01-27 10:45] LABS: Alanine Aminotransferase 22 U/L (6-35); Albumin Level 4.1 g/dL (3.5-5.1); Alkaline Phosphatase 83 U/L (38-126); Anion Gap 8 mmol/L (8-16); Aspartate Amino Transferase 38 U/L (14-36); Bilirubin,Total 0.7 mg/dL (0.2-1.3); Blood Urea Nitrogen 24 mg/dL (7-17); Calcium 9.4 mg/dL (8.4-10.2); Carbon Dioxide 26 mmol/L (22-30); Chloride 103 mmol/L (98-107); Estimated CRCL calculation 42 ml/min; Estimated Glomerular Filt Rate > 60; Glucose 150 mg/dL (65-110); Potassium 3.6 mmol/L (3.4-5.0); Sodium 137 mmol/L (137-145)
[2023-01-27] MEDS: LORazepam (*CRX) 0.5 MG TABLET PO (10:50)
[2023-01-27 10:53] LABS: D Dimer 0.53 ug/mL (<0.48)
== END 2023-01-27 12:46 | disposition home or self-care (01) ==
PROVIDERS: Emergency Provider Emergency Medicine; PCP Internal Medicine
DX: R06.00 Dyspnea, unspecified (principal); F41.9 Anxiety disorder, unspecified; J43.9 Emphysema, unspecified; E78.5 Hyperlipidemia, unspecified; I10 Essential (primary) hypertension
CPT/HCPCS: 36415; 71046; 80053; 85025; 85380; 93005; 99283; A9270

== ENCOUNTER 2024-03-08 09:53 | Outpatient (CLI) | payer MEDICARE, SELFPAY ==
--- NOTE | 2024-03-08 | ECHO_ITS ---
Patient Info Name: Alberta Trejo Age: 88 years : 1935 Gender: Female Ht: 62 in Wt: 130 lbs BSA: 1.62 m2 HR: 93 bpm BP: 133 / 72 mmHg Heart Rhythm: Atrial Fibrillation Technical Quality: Fair Exam Date: 03/08/2024 10:17 AM Exam Location: Echo Lab Patient Status: Outpatient Admit Date: 03/08/2024 Staff Ordering Physician: ASADCHERI [employer] Associate: Manuel Collins [facility] Attending Provider: ASADCHERI Exam Type: CA echo doppler color flow Study Info Indications I50.20 - Unspecified systolic (congestive) heart failure Complete two-dimensional, color flow and Doppler transthoracic echocardiogram is performed. Summary 1. Complete two-dimensional, color flow and Doppler transthoracic echocardiogram is performed. 2. Left ventricular hypertrophy with good systolic function and diastolic noncompliance. 3. Significant biatrial dilation. 4. Mild mitral regurgitation, [id number] tricuspid regurgitation. 5. Atrial fibrillation. Left Ventricle Left ventricular chamber dimension is normal. Left ventricular systolic function is normal, estimated at 60-65%. There is mild concentric increased left ventricular wall thickness. The left ventricular diastolic function is abnormal. Right Ventricle Right ventricular chamber dimension is normal. Left Atria Left atrial chamber dimension is severely enlarged. Right Atria Right atrial chamber dimension is moderately enlarged. Aortic Valve The aortic valve is normal. Pulmonic Valve The pulmonic valve is normal. There is mild pulmonic regurgitation. Mitral Valve The mitral valve has normal leaflets. There is mild mitral valve regurgitation. Tricuspid Valve The tricuspid valve leaflets are normal. There is mild to moderate tricuspid valve regurgitation. Pericardium/Pleural The pericardium appears normal. Aorta The aortic root size at the sinus of Valsalva is normal. Left Ventricular Outflow Tract Name Value Normal LVOT 2D LVOT Diameter 2.0 cm LVOT Doppler LVOT Peak Gradient 2 mmHg LVOT Mean Gradient 1 mmHg LVOT VTI 12 cm LVOT VTI/AV VTI Ratio 0.7 LVOT Stroke Volume 38 ml LVOT CO 3.5 l/min LVOT CI 2.2 l/min/m2 Pulmonic Valve Name Value Normal RVOT Doppler RVOT Peak Gradient 1 mmHg PV Doppler PV Peak Gradient 2 mmHg PV Regurgitation Doppler MI Peak End Diastolic Velocity 128 cm/s Mitral Valve Name Value Normal
== END 2024-03-08 09:54 | disposition home or self-care (01) ==
PROVIDERS: PCP Internal Medicine
DX: I50.20 Unspecified systolic (congestive) heart failure (principal); I48.91 Unspecified atrial fibrillation; I34.0 Nonrheumatic mitral (valve) insufficiency
CPT/HCPCS: 93306

== ENCOUNTER 2024-09-27 02:49 | Emergency (ER) | payer MEDICARE, SELFPAY ==
--- NOTE | ~2024-09-27 | XR_ITS ---
Portable chest x-ray Comparison: 01/27/2023 Clinical History: Syncope Findings: Lungs are clear, without focal consolidation or pleural effusion. Cardiomediastinal silho uette is stable. Bones and soft tissues are unremarkable. Impression: Clear lungs. Cardiomegaly. Reviewed, dictated and finalized at location . TION DESIGN AND ANALYSIS MANAGER Impression: Clear lungs. Cardiomegaly.
--- NOTE | ~2024-09-27 | XR_ITS ---
Left Knee Technique: AP, lateral, and oblique views were obtained. Clinical History: Status post fall Findings: No fracture or dislocation is seen. Left knee arthroplasty in place. Soft tissues are unrem arkable. No joint effusion is seen. Impression: No acute abnormality. Left knee arthroplasty in place. Reviewed, dictated and finalized at [facility]. ER GRADER Impression: No acute abnormality. Left knee arthroplasty in place.
--- NOTE | ~2024-09-27 | CT_ITS ---
Noncontrast CT scan of the cervical spine Technique: Multiple contiguous axial [address] images of the cervical spine were obtained and rec onstructed in 2D sagittal and coronal planes on the acquisition scanner. Dose reduction technique was used on this scan by utilizing automated exposure control, adjustment of the mA and/or kV according to patient size. The dose-length product (DLP) was 112.91 mGy-cm. Clinical History: Pain Findings: No acute fracture. There is 3 mm anterolisthesis of C4 over C5. There is 3 mm anterolisthes is of C5 over C6. There is 3 mm anterolisthesis of C6 over C7. There is extensive, severe facet arthr opathy throughout the cervical spine. There are minimal degenerative disc narrowing throughout the ce rvical spine. At C3-C4, there is advanced bilateral neural foraminal narrowing. No definite canal stenosis or cord compression. At C4-C5, there is probable bilateral neural foraminal narrowing, without definite canal stenosis or cord compression. There is probable bilateral neural foraminal narrowing at C5-C6. No prevertebral soft tissue swelling. Impression: No acute fracture. Grade 1 anterolistheses of C4 over C5, of C5 over C6, and of C6 over C7, as detailed above. Degenerative spondylosis, as above.. Reviewed, dictated and finalized at [facility]. LE COPER Impression: No acute fracture. Grade 1 anterolistheses of C4 over C5, of C5 over C6, and of C6 over C7, as det leticia above. Degenerative spondylosis, as above..
--- NOTE | ~2024-09-27 | CT_ITS ---
CT head without contrast Indication: Syncope COMPARISON: 12/07/2020 Technique: Serial scans were obtained through the brain without the administration of contrast. Dose reduction technique was used on this scan by utilizing automated exposure control and iterative recon struction technique. The dose-length product (DLP) was 983.67 mGy-cm. Findings: There is no evidence of intracranial hemorrhage, mass lesion, or acute infarct. The ventri cles and subarachnoid spaces are dilated, consistent with moderate atrophy. Low attenuation regions are seen within the periventricular white matter bilaterally, likely representing changes from chroni c microvascular ischemic disease. There is no evidence of edema, mass effect or midline shift. The visualized paranasal sinuses and mastoid air cells are clear. Impression: No intracranial hemorrhage, mass, or acute infarct. Atrophy and chronic white matter changes, as above. Reviewed, dictated and finalized at location . DE SALES ADMINISTRATOR Impression: No intracranial hemorrhage, mass, or acute infarct. Atrophy and chronic white matter changes, as above.
--- NOTE | ~2024-09-27 | XR_ITS ---
Right Knee Technique: AP, lateral, and oblique views were obtained. Clinical History: Status post fall Findings: No fracture or dislocation is seen. 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 Soft tissues are unre markable. No joint effusion is seen. Impression: No acute abnormality. 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 Reviewed, dictated and finalized at location . IST INFORMATION ASSISTANT Impression: No acute abnormality. 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
[2024-09-27 02:52] VITALS: BP 131/69; PULSE 96; RESP 22; O2SAT 98
--- NOTE | 2024-09-27 03:06 | ECG_ITS ---
Test Date: 2024-09-27 03:30:33 Measurements Intervals [place] Rate: 96 P: 0 GA: 0 QRS: 30 QRSD: 93 T: 22 QT: 355 QTc: 451 Interpretive Statements ATRIAL FIBRILLATION ABNORMAL RHYTHM ECG No previous ECG available for comparison Electronically Signed On 09-27-2024 12:20:12 CENTRAL OFFICE SUPERVISOR by Rubens Vazquez M.D.
[2024-09-27 03:43] VITALS: PULSE 103
[2024-09-27 03:45] LABS: Basophils Percent Auto 0.5 % (0.2-1.2); Eosinophils Absolute Auto 0.1 K/mm3 (0-0.3); Eosinophils Percent Auto 1.5 % (0-4.4); Hematocrit 31.9 % (37.0-47.0); Hemoglobin 10.6 g/dL (12.0-15.0); Immature Granulocyte Absolute 0.02 K/mm3 (0.00-0.031); Immature Granulocyte Percent A 0.3 % (0-0.5); Mean Corpuscular HGB Conc 33.2 g/dl (32-36); Mean Corpuscular Hemoglobin 33.2 pg (26-34); Mean Platelet Volume 9.4 fl (7.4-10.4); Monocytes Absolute Auto 0.8 K/mm3 (0.1-0.6); Monocytes Percent Auto 9.6 % (2.6-8.5); Neutrophils Absolute Auto 5.1 K/mm3 (1.3-6.7); Neutrophils Percent Auto 65.1 % (45.5-73.1); Platelet Count Result 268 k/mm3 (150-375); Red Blood Count 3.19 M/mm3 (4.2-5.4); Red Cell Distribution Width 13.7 % (11.5-14.5); White Blood Count 7.8 K/mm3 (4.5-10.0)
--- NOTE | 2024-09-27 03:46 | ED.GENADULT ---
HPI - General Adult General Chief complaint: Syncope Stated complaint: SYNCOPE & COLLAPSE Time Seen by Provider: 09/27/24 03:00 History of Present Illness HPI narrative: this is an 88-year-old female with dementia presenting after a syncopal episode. Per EMS the patient had a witnessed syncopal episode while using the bathroom. She did not hit her head. EMS was called and she was brought to the hospital. EMS noted that she was in AFib with RVR although this resolved by time she arrived to the ED. the patient does not have any complaints other than her knees hurt. Patient is a poor historian and does not remember the event. Related Data Allergies Allergy/AdvReac Type Severity Reaction Status Date / Time adhesive tape Allergy Mild Rash Verified 06/26/24 11:56 codeine Allergy Unknown Unknown Verified 06/26/24 11:56 [facility] Past Medical History Medical History Osteoarthritis of hips, bilateral Other amyloidosis Pulmonary nodules Bilateral shoulder pain Trochanteric bursitis Hyperlipidemia Amyloidosis, unspecified R ureter Degenerative joint disease Hiatal hernia Hypertension GERD (gastroesophageal reflux disease) Emphysema lung Lung nodule Surgical History Surgical History History of carpal tunnel release History of back surgery Dr. Mena History of knee replacement [place] Family History Family History Mother Hypertension Diabetes mellitus Other Family history of arthritis Social History Social History Social History: Caffeine-coffee Smoking status: Never smoker Second hand tobacco smoke exposure: No Alcohol intake: never Substance use: never Substance use type: does not use Lack of Transportation: No Current Housing: I Have Housing Concerned About Future Housing: No Difficulty Paying Gas/Electric Bills: No Difficulty Paying for Meds: No Currently Unemployed: No Education: High School Diploma/GED Difficulty w/ Childcare or Family Care: No Living arrangements: assisted living Occupation/Education: retired Gender identity (if verbalized by the patient): Female Spiritual care concerns: No Exam Narrative: APPEARANCE: No apparent distress. AO x2. poor historian Head: atraumatic. EYES: EOMI, NOSE: Atraumatic NECK: Trachea midline RESPIRATORY: No increased rate of breathing CTAB CARDIOVASCULAR: RRR, nonpitting edema lower extremities ABDOMINAL: Non-distended MUSCULOSKELETAl: No obvious deformities, pain on range of motion of the knees NEURO: Alert. Cranial nerves 2-12 grossly intact. Sensation light touch, motor function cerebellar function intact for 4 extremities. Gait exam was Deferred. SKIN:: Warm, dry. Normal color PSYCHIATRIC: Normal affect Course Vital Signs Vital signs: Vital Signs Pulse Rate 96 09/27/24 02:52 Respiratory Rate 22 H 09/27/24 02:52 Blood Pressure 131/69 09/27/24 02:52 Pulse Oximetry 98 09/27/24 02:52 Oxygen Delivery Room Air 09/27/24 02:52 Pulse Rate 89 09/27/24 06:10 Respiratory Rate 19 09/27/24 06:10 Blood Pressure 107/68 09/27/24 06:10 Pulse Oximetry 93 09/27/24 06:10 Oxygen Delivery Room Air 09/27/24 05:34 Medical Decision Making [facility] Narrative Medical decision making narrative: -Course: 88-year-old female with dementia presenting after a syncopal episode on the toilet. likely vasovagal. Laboratory studies within normal limits. Trauma imaging negative. EKG showed atrial fibrillation. patient resting comfortably throughout her stay. She will be discharged back to half-way. Independent EKG interpretation: Rhythm atrial fibrillation, Rate [96], [place] -[normal], [place] -[none], QRS [narrow], QTC [normal], T waves -[negative for concerning inversions], ST Segments - [Negative for concerning elevations] Final interpretations: atrial fibrillation Vital Signs Vital Signs: Vital Signs Pulse Rate 96 09/27/24 02:52 Respiratory Rate 22 H 09/27/24 02:52 Blood Pressure 131/69 09/27/24 02:52 Pulse Oximetry 98 09/27/24 02:52 Oxygen Delivery Room Air 09/27/24 02:52 Pulse Rate 89 09/27/24 06:10 Respiratory Rate 19 09/27/24 06:10 Blood Pressure 107/68 09/27/24 06:10 Pulse Oximetry 93 09/27/24 06:10 Oxygen Delivery Room Air 09/27/24 05:34 Lab Data 09/27/24 03:17 09/27/24 03:17 Labs: Lab Results 12/20/24 Range/Units 03:17 WBC 7.8 (4.5-10.0) K/mm3 RBC 3.19 L (4.2-5.4) M/mm3 Hgb 10.6 L (12.0-15.0) g/dL Hct 31.9 L (37.0-47.0) % MCV 100.0 (80-100) fl MCH 33.2 (26-34) pg MCHC 33.2 (32-36) g/dl RDW 13.7 (11.5-14.5) % Plt Count 268 (150-375) k/mm3 MPV 9.4 (7.4-10.4) fl Immature Gran % (Auto) 0.3 (0-0.5) % Neut % (Auto) 65.1 (45.5-73.1) % Lymph % (Auto) 23.0 (18.3-44.2) % [place] % (Auto) 9.6 H (2.6-8.5) % Eos % (Auto) 1.5 (0-4.4) % Baso % (Auto) 0.5 (0.2-1.2) % Lymph # (Auto) 1.80 (0.9-3.2) K/mm3 [place] # (Auto) 0.8 H (0.1-0.6) K/mm3 Eos # (Auto) 0.1 (0-0.3) K/mm3 Baso # (Auto) 0.0 (0.0-0.1) K/mm3 Abs Immat Gran (auto) 0.02 (0.00-0.031) K/mm3 Absolute Neuts (auto) 5.1 (1.3-6.7) K/mm3 Absolute Nucleated RBC 0.000 (0.0-0.012) K/mm3 Nucleated RBC % 0.0 (0.0-0.2) % Sodium 138 (137-145) mmol/L Potassium 3.3 L (3.4-5.0) mmol/L Chloride 104 (98-107) mmol/L Carbon Dioxide 28 (22-30) mmol/L Anion Gap 6 (4-12) mmol/L BUN 19 H (7-17) mg/dL Creatinine 0.50 L (0.7-1.0) mg/dL Estim Creat Clear Calc 53 ml/min Estimated GFR > 60 (59 - ) Glucose 126 H (65-110) mg/dL Calcium 9.4 (8.4-10.2) mg/dL Total Bilirubin 1.0 (0.2-1.3) mg/dL AST 28 (14-36) U/L ALT 11 (6-35) U/L Alkaline Phosphatase 88 (38-126) U/L Troponin I < 0.012 (0.000-0.034) ng/mL Total Protein 7.0 (6.3-8.2) g/dL Albumin 3.3 L (3.5-5.1) g/dL Discharge Plan Discharge Clinical Impression: Syncope, vasovagal Patient Disposition: Home, Self-Care Condition: Stable Instructions: Antibiotic Form, Syncope (ED) Additional Instructions: Alberta was seen in the emergency department after a syncopal event. This occurred on the toilet and was likely vasovagal. Her laboratory studies with in normal limits. Trauma imaging was negative. She can return any time for re-evaluation if she develops new or worsening symptoms. Patient Language: Malawian Prescriptions: No Action furosemide [Lasix] 20 mg tablet 20 mg PO QAM Qty: 30 4RF amlodipine 5 mg tablet 5 mg PO DAILY Qty: 90 1RF levothyroxine 50 mcg tablet 50 mcg PO DAILY Qty: 90 1RF losartan 50 mg tablet 50 mg PO DAILY Qty: 90 3RF Follow-up/Referrals: Wyatt,Jj Ortiz DO [Primary Care Provider] -
[2024-09-27 03:56] LABS: Alanine Aminotransferase 11 U/L (6-35); Albumin Level 3.3 g/dL (3.5-5.1); Alkaline Phosphatase 88 U/L (38-126); Anion Gap 6 mmol/L (4-12); Aspartate Amino Transferase 28 U/L (14-36); Blood Urea Nitrogen 19 mg/dL (7-17); Calcium 9.4 mg/dL (8.4-10.2); Carbon Dioxide 28 mmol/L (22-30); Chloride 104 mmol/L (98-107); Estimated CRCL calculation 53 ml/min; Estimated Glomerular Filt Rate > 60; Glucose 126 mg/dL (65-110); Potassium 3.3 mmol/L (3.4-5.0); Sodium 138 mmol/L (137-145)
[2024-09-27 04:07] LABS: Troponin I < 0.012 ng/mL (0.000-0.034)
[2024-09-27 04:34] VITALS: BP 116/66; PULSE 87; RESP 20; O2SAT 94
[2024-09-27 05:34] VITALS: O2SAT 93
[2024-09-27 06:10] VITALS: BP 107/68; PULSE 89; RESP 19; O2SAT 93
[2024-09-27 06:42] VITALS: BP 110/45; PULSE 88; RESP 15; O2SAT 94
== END 2024-09-27 07:14 ==
PROVIDERS: Physician Assistant; Emergency Provider Emergency Medicine; PCP Internal Medicine
DX: R55 Syncope and collapse (principal); F03.90 Unspecified dementia, unspecified severity, without behavioral disturbance, psychotic disturbance, mood disturbance, and anxiety; I10 Essential (primary) hypertension; J43.9 Emphysema, unspecified; E78.5 Hyperlipidemia, unspecified; K21.9 Gastro-esophageal reflux disease without esophagitis; K44.9 Diaphragmatic hernia without obstruction or gangrene; Z96.653 Presence of artificial knee joint, bilateral; I48.91 Unspecified atrial fibrillation; I51.7 Cardiomegaly; M47.812 Spondylosis without myelopathy or radiculopathy, cervical region; Z79.899 Other long term (current) drug therapy
CPT/HCPCS: 36415; 70450; 71045; 72125; 73562; 80053; 84484; 85025; 93005; 99284

== ENCOUNTER 2024-10-23 11:04 | Emergency (ER) | payer MEDICARE, SELFPAY ==
[2024-10-23] VITALS (9 sets, daily range): BP systolic 139–167; BP diastolic 78–98; PULSE 86–98; RESP 14–17; TEMP 36.6; O2SAT 96–99
--- NOTE | ~2024-10-23 | XR_ITS ---
EXAMINATION: XR elbow LT min 3V DATE: 10/23/2024 11:54 INDICATION: Left elbow injury. TECHNIQUE: 4 views of left elbow were obtained. COMPARISON: None. FINDINGS: Alignment is normal. No fracture. There is mild elbow joint osteoarthritis. No elbow joint effusion. IMPRESSION: 1. Mild elbow joint osteoarthritis. Reviewed, dictated and finalized at location A. ETARY RECEPTIONIST
--- NOTE | ~2024-10-23 | CT_ITS ---
EXAMINATION: CT brain wo con DATE: 10/23/2024 12:00 INDICATION: Fall TECHNIQUE: Computed tomography (CT) of the head was performed without intravenous contrast. Sagittal and coronal reconstructions were performed. The mA was adjusted according to patient size. Iterative reconstruction technique was employed. The dose-length product was 681.00 mGy-cm. COMPARISON: head CT dated 09/27/2024 FINDINGS: No fracture. No acute intracranial hemorrhage, acute infarction or abnormal extra axial fluid collect ion. Small old lacunar infarct at the head of the right caudate nucleus. There is moderate scattered white matter hypoattenuation consistent with chronic small vessel ischemic disease. Symmetric promine nce of the sulci and ventricles consistent with mild age-appropriate diffuse cerebral volume loss. No mass/mass effect. Changes of bilateral intraocular lens replacement. The orbits and mastoid air cell s are normal. Mild mucosal thickening the bilateral ethmoid sinuses. IMPRESSION: 1. No fracture or acute intracranial process. 2. 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 3. Age-related changes including mild diffuse volume loss and moderate scattered white matter hypoatt enuation consistent with chronic small vessel ischemic disease. Reviewed, dictated and finalized at location B. IESEL DIVISION MANAGER IMPRESSION: 1. No fracture or acute intracranial process. 2. 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 3. Age-related changes including mild diffuse volume loss and moderate scattere d white matter hypoattenuation consistent with chronic small vessel ischemic di sease.
--- NOTE | 2024-10-23 12:15 | ED.FALL ---
HPI - Fall General Chief Complaint: Fall Stated Complaint: fall Time Seen by Provider: 10/23/24 11:04 History of Present Illness HPI Narrative: Patient is a 88-year-old female who presents ER after a fall from her custodial. Was walking to the bathroom when she fell. Unwitnessed. Unknown if head injury or LOC. Has pain at left elbow where there are skin tears. Unable to provide any additional history or information. Related Data Allergies Allergy/AdvReac Type Severity Reaction Status Date / Time adhesive tape Allergy Mild Rash Verified 06/26/24 11:56 codeine Allergy Unknown Unknown Verified 06/26/24 11:56 Review of Systems Review of Systems: ROS unobtainable: Yes unobtainable due to mental status PMFSH Past Medical History Medical History Osteoarthritis of hips, bilateral Other amyloidosis Pulmonary nodules Bilateral shoulder pain Trochanteric bursitis Hyperlipidemia Amyloidosis, unspecified R ureter Degenerative joint disease Hiatal hernia Hypertension GERD (gastroesophageal reflux disease) Emphysema lung Lung nodule Surgical History Surgical History History of carpal tunnel release History of back surgery Dr. Mena History of knee replacement [place] Family History Family History Mother Hypertension Diabetes mellitus Other Family history of arthritis Social History Social History Social History: Caffeine-coffee Smoking status: Never smoker Second hand tobacco smoke exposure: No Alcohol intake: never Substance use: never Substance use type: does not use Lack of Transportation: No Current Housing: I Have Housing Concerned About Future Housing: No Difficulty Paying Gas/Electric Bills: No Difficulty Paying for Meds: No Currently Unemployed: No Education: High School Diploma/GED Difficulty w/ Childcare or Family Care: No Living arrangements: assisted living Occupation/Education: retired Gender identity (if verbalized by the patient): Female Spiritual care concerns: No Exam Narrative: GENERAL: Well-appearing, well-nourished, and in no acute distress. HEAD: Normocephalic, atraumatic. ENT: Mucous membranes moist. NECK: Supple. CHEST: Clear to auscultation. No respiratory distress. HEART: Regular rate and rhythm. Normal peripheral pulses.s. EXTREMITIES: Normal range of motion. No edema. SKIN: Warm, dry, no rash. Skin tears over lateral left elbow. NEURO: Alert and oriented x3. PSYCH: Normal mood and affect. Course Course Emergency Course: No evidence of injury. Discharge home. Vital Signs Vital signs: Vital Signs Temperature 97.9 F 10/23/24 10:58 Pulse Rate 94 10/23/24 10:58 Respiratory Rate 14 10/23/24 10:58 Blood Pressure 143/85 H 10/23/24 10:58 Pulse Oximetry 96 10/23/24 10:58 Oxygen Delivery Room Air 10/23/24 10:58 Temperature 97.9 F 10/23/24 10:58 Pulse Rate 96 10/23/24 11:31 Respiratory Rate 14 10/23/24 11:31 Blood Pressure 139/83 10/23/24 11:31 Pulse Oximetry 96 10/23/24 11:31 Oxygen Delivery Room Air 10/23/24 10:58 MDM - Fall Imaging Data Radiologist's impression: ITS Impressions Elbow X-Ray 10/23/24 12:01 IMPRESSION: 1. Mild elbow joint osteoarthritis. Head CT 10/23/24 12:01 IMPRESSION: 1. No fracture or acute intracranial process. 2. 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 3. Age-related changes including mild diffuse volume loss and moderate scattered white matter hypoattenuation consistent with chronic small vessel ischemic disease. Discharge Plan Discharge Clinical Impression: Skin tear of left elbow without complication Patient Disposition: Home, Self-Care Condition: Stable Instructions: Skin Tear (ED) Additional Instructions: Return ER if you suffered additional injury, you have fever over 100.4? F, or you have additional concerns. Patient Language: Kyrgyz Prescriptions: No Action furosemide [Lasix] 20 mg tablet 20 mg PO QAM Qty: 30 4RF amlodipine 5 mg tablet 5 mg PO DAILY Qty: 90 1RF levothyroxine 50 mcg tablet 50 mcg PO DAILY Qty: 90 1RF losartan 50 mg tablet 50 mg PO DAILY Qty: 90 3RF Follow-up/Referrals: Wyatt,Jj Ortiz DO [Primary Care Provider] - 1 Week
[2024-10-23 13:52] LABS: Add Urine Microscopic? NO; Appearance Urine Clear (Clear); Bilirubin Urine Negative (Negative); Blood Urine Negative (Negative); Color Urine Yellow (Yellow); Glucose Urine UA Negative (Negative); Ketones Urine Negative (Negative); Leukocyte Esterase Ur Negative LEU/UL (Negative); Nitrate Urine Negative (Negative); Protein Urine Negative (Negative); pH Urine 6.5 (5.0-9.0)
== END 2024-10-23 14:32 | disposition home or self-care (01) ==
PROVIDERS: Emergency Provider Emergency Medicine; PCP Internal Medicine
DX: S51.012A Laceration without foreign body of left elbow, initial encounter (principal); W19.XXXA Unspecified fall, initial encounter
CPT/HCPCS: 70450; 73080; 81003; 99284

== ENCOUNTER 2024-10-23 16:30 | Inpatient (IN) | payer MEDICARE, SELFPAY ==
--- NOTE | ~2024-10-23 | CT_ITS ---
EXAMINATION: CT cervical spine wo con DATE: 10/23/2024 18:24 INDICATION: Neck pain after fall TECHNIQUE: Computed tomography (CT) of the cervical spine was performed without intravenous contrast. The dose-length product was 96 mGy-cm. COMPARISON: CT dated 09/27/2024 FINDINGS: Craniovertebral junction is normal. There is degenerative anterolisthesis at C4-5, C5-6 and C6-7. There is multilevel facet hypertrophy. Craniovertebral junction is normal. Odontoid process is normal. There is apical pleural thickening/scarring. No acute fracture or traumatic malalignment. No paraspinal soft tissue abnormality. IMPRESSION: 1. No acute abnormality of the cervical spine. 2: Severe cervical spondylosis. Reviewed, dictated and finalized at location A. GER ETHICS
--- NOTE | ~2024-10-23 | XR_ITS ---
XR hip RT 2V w AP pelvis 10/23/2024 17:45 Indication: Right hip pain after fall Procedure: AP pelvis and 2 views right hip Comparison: 10/21/2021 Findings: There is bilateral osteoarthritis of the hips, right greater than left. No fracture is iden tified. There is osteitis pubis. Osteopenia. There are are surgical fusion changes of the lower lumba r spine. Sacral foramen are symmetric. Impression: 1: No acute fracture. Reviewed, dictated and finalized at location A. ICIAN RELATIONS SPECIALIST Impression: 1: No acute fracture.
--- NOTE | ~2024-10-23 | CT_ITS ---
EXAMINATION: CT brain wo con DATE: 10/23/2024 18:24 INDICATION: Fall. Head injury. Dementia. TECHNIQUE: Computed tomography (CT) of the head was performed without intravenous contrast. The dose- length product was 605.33 mGy-cm. Automated exposure control and iterative reconstruction technique w ere employed. COMPARISON: CT dated 10/23/2024 FINDINGS: Generalized atrophy. There are scattered severe periventricular and subcortical white matte r changes, most likely related to small vessel ischemic disease (microangiopathy). Small chronic righ t lacunar infarction. There is intracranial atherosclerosis. Paranasal sinuses are pneumatized. There is right mastoid effusion. No depressed skull fractures. No acute infarction, hemorrhage, mass or ma ss effect. IMPRESSION: 1. No acute intracranial abnormality. Reviewed, dictated and finalized at location A. ENGINEER
--- NOTE | ~2024-10-23 | CT_ITS ---
EXAMINATION: CT pelvis wo con DATE: 10/23/2024 18:24 INDICATION: Status post fall. Right hip pain. TECHNIQUE: Computed tomography (CT) of the pelvis was performed without intravenous contrast. The dos e-length product was 237.29 mGy-cm. Automated exposure control and iterative reconstruction technique were employed. COMPARISON: Right hip series dated 10/23/2015 FINDINGS: There is a possible nondisplaced fracture of the right humeral neck in the subcapital locat ion. There is severe right and moderate left osteoarthritis of the hips. There are surgical fusion ch anges of the lower lumbar spine. There is a bone graft donor site in the right ilium. IMPRESSION: 1. Possible nondisplaced right humeral neck fracture at the subcapital location. Recommend correlatio n with MRI for confirmation. Reviewed, dictated and finalized at location A. SSING MACHINE OPERATOR HELPER IMPRESSION: 1. Possible nondisplaced right humeral neck fracture at the subcapital location . Recommend correlation with MRI for confirmation.
[2024-10-23 16:31] VITALS: BP 161/90; PULSE 111; RESP 20; TEMP 36.6; O2SAT 93
[2024-10-23] MEDS: MORPHINE SULFATE (*CRX) 2 MG/ML INJ IV PUSH ×3 (17:55→23:31)
[2024-10-23] MEDS: ONDANSETRON INJ 4 MG/2 ML VIAL IV PUSH (17:55)
--- NOTE | 2024-10-23 17:55 | ED_ITS ---
HPI - Fall General Chief Complaint: Fall Stated Complaint: fall Time Seen by Provider: 10/23/24 17:01 Source: patient and family Mode of arrival: EMS Limitations: dementia History of Present Illness HPI Narrative: Patient is an 88-year-old female who presents the ED via EMS with report of a fall. Patient is a resident of [facility]. She has hx of dementia and is not able to provide history. Daughter at bedside assisted. Reports patient was seen in the ED earlier today after a fall. Patient typically ambulates with a walker. Had negative imaging and was discharged back to the assisted. Daughter reports she then fell again in her bathroom. Patient is unable to tell me how the fall occurred. She complains of pain to her right hip. She does have an obvious head injury with contusion to her right forehead. Unknown LOC. Related Data Allergies Allergy/AdvReac Type Severity Reaction Status Date / Time adhesive tape Allergy Mild Rash Verified 10/23/24 21:12 codeine Allergy Unknown Unknown Verified 10/23/24 21:12 Review of Systems 2 Review of Systems: All systems reviewed & are unremarkable except as noted in HPI. ROS unobtainable: Yes unobtainable due to mental status PMFSH Past Medical History Medical History Osteoarthritis of hips, bilateral Other amyloidosis Pulmonary nodules Bilateral shoulder pain Trochanteric bursitis Hyperlipidemia Amyloidosis, unspecified R ureter Degenerative joint disease Hiatal hernia Hypertension GERD (gastroesophageal reflux disease) Emphysema lung Lung nodule Surgical History Surgical History History of carpal tunnel release History of back surgery Dr. Mena History of knee replacement [place] Family History Family History Mother Hypertension Diabetes mellitus Other Family history of arthritis Social History Social History Social History: Caffeine-coffee Smoking status: Never smoker Second hand tobacco smoke exposure: No Alcohol intake: never Substance use: never Substance use type: does not use Lack of Transportation: No Current Housing: I Have Housing Concerned About Future Housing: No Difficulty Paying Gas/Electric Bills: No Difficulty Paying for Meds: No Currently Unemployed: No Education: High School Diploma/GED Difficulty w/ Childcare or Family Care: No Living arrangements: assisted living Occupation/Education: retired Gender identity (if verbalized by the patient): Female Spiritual care concerns: No Exam 2 Narrative: GENERAL: Elderly, thin/frail, in mild acute distress due to pain. HEAD: Normocephalic. Contusion to R lateral forehead with small area of bruising and focal TTP. RESPIRATORY: Airway patent, respirations nonlabored. Clear to auscultation bilaterally, no rales, rhonchi, wheezing. CARDIOVASCULAR: Borderline tachycardic with regular rhythm without murmurs, rubs, or gallops. MUSCULOSKELETAL: No gross deformities. TTP in R proximal thigh/hip. Limited ROM of RLE due to pain. SKIN: Warm, dry, normal color. NEURO: A&O X1. Confused. Answers some questions. Speech clear. No ataxic movements. PSYCHIATRIC: Appropriate mood and affect. Normal interaction. Course Vital Signs Vital signs: Vital Signs Temperature 97.8 F 10/23/24 16:31 Pulse Rate 111 H 10/23/24 16:31 Respiratory Rate 20 10/23/24 16:31 Blood Pressure 161/90 H 10/23/24 16:31 Pulse Oximetry 93 10/23/24 16:31 Oxygen Delivery Room Air 10/23/24 16:31 Temperature 97.8 F 10/23/24 16:31 Pulse Rate 109 H 10/23/24 21:06 Respiratory Rate 20 10/23/24 21:06 Blood Pressure 136/99 H 10/23/24 21:06 Pulse Oximetry 98 10/23/24 21:06 Oxygen Delivery Nasal Cannula 10/23/24 18:30 Oxygen Flow Rate 2 10/23/24 18:30 MDM - Fall MDM Narrative Medical decision making narrative: Patient presented to ED for 2nd time today status post fall in bathroom, complaining of pain to right hip. +Head injury. Patient with history of dementia, unable to tell me how the fall occurred. Patient slightly tachycardic upon arrival. In mild acute distress due to pain. Pain medication given. Tenderness with any palpation of right proximal leg. Initial x-ray of left hip/pelvis negative for acute fracture. Will obtain CT pelvis to rule out occult pelvic fracture given patient's profound pain. CT showing possible right femoral neck fracture of the subcapital location. I do believe patient's presentation today is consistent with acute hip fracture. When she was seen in the ED earlier today after the 1st fall, the patient did not have any pain at that time. Will treat as acute fracture. Discussed case with Dr. Stroud, orthopedics, advised will likely need pinning. Will consult. Discussed case with Dr. Lambert, hospitalist, accepted patient for admission. Patient and family are in agreement with plan and need for admission. Pre-op w/u was obtained. Laboratory studies are unremarkable. EKG was obtained and showing AFib with RVR. I do not see history of previous AFib patient's records. She is not on any anticoagulation. This appears to be a new diagnosis. EKG shows heart rate in the 120s. This was around the same time the patient was reporting worsening pain. Heart rate did improve with pain control. Will continue to monitor. Hospitalist updated on this. Faith catheter placed. Medical Records Attestation: I reviewed the patient's medical records. Lab Data Attestation: I reviewed the patient's lab results. 10/23/24 20:28 10/23/24 20:28 Labs: Lab Results 10/23/24 Range/Units 20:28 WBC 8.6 (4.5-10.0) K/mm3 RBC 3.31 L (4.2-5.4) M/mm3 Hgb 11.3 L (12.0-15.0) g/dL Hct 34.1 L (37.0-47.0) % MCV 103.0 H (80-100) fl MCH 34.1 H (26-34) pg MCHC 33.1 (32-36) g/dl RDW 14.7 H (11.5-14.5) % Plt Count 214 (150-375) k/mm3 MPV 9.5 (7.4-10.4) fl Immature Gran % (Auto) 0.3 (0-0.5) % Neut % (Auto) 75.6 H (45.5-73.1) % Lymph % (Auto) 15.8 L (18.3-44.2) % [place] % (Auto) 7.8 (2.6-8.5) % Eos % (Auto) 0.2 (0-4.4) % Baso % (Auto) 0.3 (0.2-1.2) % Lymph # (Auto) 1.36 (0.9-3.2) K/mm3 [place] # (Auto) 0.7 H (0.1-0.6) K/mm3 Eos # (Auto) 0.0 (0-0.3) K/mm3 Baso # (Auto) 0.0 (0.0-0.1) K/mm3 Abs Immat Gran (auto) 0.03 (0.00-0.031) K/mm3 Absolute Neuts (auto) 6.5 (1.3-6.7) K/mm3 Absolute Nucleated RBC 0.000 (0.0-0.012) K/mm3 Nucleated RBC % 0.0 (0.0-0.2) % PT 15.7 H (11.1-14.7) Seconds INR 1.2 APTT 30.0 (22.3-36.8) Seconds Sodium 136 L (137-145) mmol/L Potassium 3.9 (3.4-5.0) mmol/L Chloride 100 (98-107) mmol/L Carbon Dioxide 30 (22-30) mmol/L Anion Gap 6 (4-12) mmol/L BUN 17 (7-17) mg/dL Creatinine 0.51 L (0.7-1.0) mg/dL Estim Creat Clear Calc 45 ml/min Estimated GFR > 60 (59 - ) Glucose 118 H (65-110) mg/dL Calcium 9.6 (8.4-10.2) mg/dL Magnesium 1.8 (1.6-2.3) mg/dL Total Bilirubin 1.3 (0.2-1.3) mg/dL AST 26 (14-36) U/L ALT 18 (6-35) U/L Alkaline Phosphatase 103 (38-126) U/L Total Protein 8.0 (6.3-8.2) g/dL Albumin 3.7 (3.5-5.1) g/dL Imaging Data Attestation: I personally reviewed and interpreted this imaging study as follows: Radiologist's impression: ITS Impressions Hip/Pelvis X-Ray 10/23/24 17:50 Impression: 1: No acute fracture. Head CT 10/23/24 18:29 IMPRESSION: 1. No acute intracranial abnormality. Pelvis CT 10/23/24 18:35 IMPRESSION: 1. Possible nondisplaced right humeral neck fracture at the subcapital location. Recommend correlation with MRI for confirmation. ADDENDUM: 10/23/24 1848 Correction: Possible nondisplaced right FEMORAL neck fracture in the subcapital location. Cervical Spine CT 10/23/24 18:38 IMPRESSION: 1. No acute abnormality of the cervical spine. 2: Severe cervical spondylosis. ECG Data EKG #1: Attestation: I personally reviewed and interpreted this ECG as follows: ECG completion date: 10/23/24 ECG completion time: 20:55 EKG Interpretation: tachycardia (123), atrial fibrillation and non- specific ST changes Discharge Plan Discharge Clinical Impression: Fall from ground level, New onset a-fib Fracture of femoral neck, right Qualifiers: Encounter type: initial encounter Fracture type: closed Qualified Code(s): S 72.001A - Fracture of unspecified part of neck of right femur, initial encounter for closed fracture Dementia Qualifiers: Dementia type: unspecified type Dementia severity: unspecified severity D ementia behavioral or psychological symptom: unspecified whether behavioral, psychotic, or mood disturbance or anxiety Qualified Code(s): F03.90 - Unspecified dementia, unspecified severity, without behavioral disturbance, psychotic disturbance, mood disturbance, and anxiety Patient Disposition: Still a Patient Condition: Stable
[2024-10-23 18:30] VITALS: BP 163/82; PULSE 115; RESP 20; O2SAT 88; O2SAT 98; O2SAT 99
[2024-10-23 18:31] VITALS: BP 165/77; PULSE 98; RESP 20; O2SAT 100
--- NOTE | 2024-10-23 19:55 | ECG_ITS ---
Test Date: 2024-10-23 20:55:10 Measurements Intervals [place] Rate: 123 P: 0 FL: 0 QRS: 16 QRSD: 93 T: 28 QT: 291 QTc: 418 Interpretive Statements ATRIAL FIBRILLATION WITH RAPID VENTRICULAR RESPONSE ABNORMAL RHYTHM ECG Compared to ECG 09/27/2024 03:30:33 No significant changes Electronically Signed On 10-24-2024 09:20:15 BRIDGE MAINTAINER by Viet Valenzuela M.D.
[2024-10-23 20:46] LABS: Basophils Percent Auto 0.3 % (0.2-1.2); Eosinophils Percent Auto 0.2 % (0-4.4); Hematocrit 34.1 % (37.0-47.0); Hemoglobin 11.3 g/dL (12.0-15.0); Immature Granulocyte Absolute 0.03 K/mm3 (0.00-0.031); Immature Granulocyte Percent A 0.3 % (0-0.5); Lymphocytes Absolute Auto 1.36 K/mm3 (0.9-3.2); Lymphocytes Percent Auto 15.8 % (18.3-44.2); Mean Corpuscular HGB Conc 33.1 g/dl (32-36); Mean Corpuscular Hemoglobin 34.1 pg (26-34); Mean Platelet Volume 9.5 fl (7.4-10.4); Monocytes Absolute Auto 0.7 K/mm3 (0.1-0.6); Monocytes Percent Auto 7.8 % (2.6-8.5); Neutrophils Absolute Auto 6.5 K/mm3 (1.3-6.7); Neutrophils Percent Auto 75.6 % (45.5-73.1); Platelet Count Result 214 k/mm3 (150-375); Red Blood Count 3.31 M/mm3 (4.2-5.4); Red Cell Distribution Width 14.7 % (11.5-14.5); White Blood Count 8.6 K/mm3 (4.5-10.0)
[2024-10-23 20:56] LABS: Alanine Aminotransferase 18 U/L (6-35); Albumin Level 3.7 g/dL (3.5-5.1); Alkaline Phosphatase 103 U/L (38-126); Anion Gap 6 mmol/L (4-12); Aspartate Amino Transferase 26 U/L (14-36); Bilirubin,Total 1.3 mg/dL (0.2-1.3); Blood Urea Nitrogen 17 mg/dL (7-17); Calcium 9.6 mg/dL (8.4-10.2); Carbon Dioxide 30 mmol/L (22-30); Chloride 100 mmol/L (98-107); Estimated CRCL calculation 45 ml/min; Estimated Glomerular Filt Rate > 60; Glucose 118 mg/dL (65-110); Potassium 3.9 mmol/L (3.4-5.0); Sodium 136 mmol/L (137-145)
--- NOTE | 2024-10-23 20:56 | PC.NURSE ---
[place] 2MG IVP MORPHINE FOR PT PAIN.
[2024-10-23 20:59] LABS: INR 1.2; Prothrombin Time 15.7 Seconds (11.1-14.7)
[2024-10-23 21:06] VITALS: BP 136/99; PULSE 109; RESP 20; O2SAT 98
--- NOTE | 2024-10-23 21:09 | PM.IMHP ---
H&P: HPI History of Present Illness Date/Time: 10/23/24 21:09 Chief Complaint: Fall Narrative: This is an 88-year-old female with past medical history significant for dementia, hypertension, DJD, amyloidosis, GERD, emphysema. [facility] was brought to the emergency room after suffer a fall for 2nd time earlier in the day had been evaluated and seen at the emergency room and sent back however patient had another fall. Preliminary workup was significant for right humeral neck fracture. Patient is unable to participate in history taking she is only oriented to person most of the history has been obtained from daughter who is at bedside. Patient has been admitted for further evaluation management and treatment. EXAMINATION: CT brain wo con DATE: 10/23/2024 12:00 INDICATION: Fall TECHNIQUE: Computed tomography (CT) of the head was performed without intravenous contrast. Sagittal and coronal reconstructions were performed. The mA was adjusted according to patient size. Iterative reconstruction technique was employed. The dose-length product was 681.00 mGy-cm. COMPARISON: head CT dated 09/27/2024 FINDINGS: No fracture. No acute intracranial hemorrhage, acute infarction or abnormal extra axial fluid collection. Small old lacunar infarct at the head of the right caudate nucleus. There is moderate scattered white matter hypoattenuation consistent with chronic small vessel ischemic disease. Symmetric prominence of the sulci and ventricles consistent with mild age-appropriate diffuse cerebral volume loss. No mass/mass effect. Changes of bilateral intraocular lens replacement. The orbits and mastoid air cells are normal. Mild mucosal thickening the bilateral ethmoid sinuses. IMPRESSION: 1. No fracture or acute intracranial process. 2. 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 3. Age-related changes including mild diffuse volume loss and moderate scattered white matter hypoattenuation consistent with chronic small vessel ischemic disease. EXAMINATION: CT pelvis wo con DATE: 10/23/2024 18:24 INDICATION: Status post fall. Right hip pain. TECHNIQUE: Computed tomography (CT) of the pelvis was performed without intravenous contrast. The dose-length product was 237.29 mGy-cm. Automated exposure control and iterative reconstruction technique were employed. COMPARISON: Right hip series dated 10/23/2015 FINDINGS: There is a possible nondisplaced fracture of the right humeral neck in the subcapital location. There is severe right and moderate left osteoarthritis of the hips. There are surgical fusion changes of the lower lumbar spine. There is a bone graft donor site in the right ilium. IMPRESSION: 1. Possible nondisplaced right humeral neck fracture at the subcapital location. Recommend correlation with MRI for confirmation. Review of Systems Review of Systems: ROS unobtainable: Yes unobtainable due to medical condition (Dementia) FOR[facility]LY [facility], [facility] Past Medical History Medical History Osteoarthritis of hips, bilateral Other amyloidosis Pulmonary nodules Bilateral shoulder pain Trochanteric bursitis Hyperlipidemia Amyloidosis, unspecified R ureter Degenerative joint disease Hiatal hernia Hypertension GERD (gastroesophageal reflux disease) Emphysema lung Lung nodule Surgical History Surgical History History of carpal tunnel release History of back surgery Dr. Mena History of knee replacement [place] Family History Family History Mother Hypertension Diabetes mellitus Other Family history of arthritis Social History Social History Social History: Caffeine-coffee Smoking status: Never smoker Second hand tobacco smoke exposure: No Alcohol intake: never Substance use: never Substance use type: does not use Do You Feel Safe in your Home?: Yes Lack of Transportation: No Lack of Food: Never True Current Housing: I Have Housing Concerned About Future Housing: No Difficulty Paying Gas/Electric Bills: No Difficulty Paying for Meds: No Currently Unemployed: No Education: Don't Know Difficulty w/ Childcare or Family Care: No Living arrangements: assisted living Occupation/Education: retired Gender identity (if verbalized by the patient): Female Spiritual care concerns: No Meds Home Medications and Allergies Home Medications ?Medication ?Instructions ?Recorded ?Confirmed ?Type amlodipine 5 mg tablet 5 mg PO DAILY #90 tabs 09/27/22 06/26/24 Rx levothyroxine 50 mcg tablet 50 mcg PO DAILY #90 tabs 03/17/23 10/24/24 Rx losartan 50 mg tablet 50 mg PO DAILY #90 tabs 04/27/23 06/26/24 Rx furosemide 20 mg tablet (Lasix) 20 mg PO QAM #30 tabs 06/26/24 10/24/24 Rx acetaminophen 325 mg tablet 650 mg PO .q8hr PRN pain 10/24/24 10/24/24 History albuterol sulfate 90 mcg/actuation 2 inh inhalation QID PRN shortness 10/24/24 10/24/24 History aerosol inhaler of breath or wheezing cyclobenzaprine 5 mg tablet 5 mg PO Q8H PRN muscle spasm 10/24/24 10/24/24 History lidocaine 4 % topical patch 2 patch topical DAILY PRN pain 10/24/24 10/24/24 History lorazepam 0.5 mg tablet (Ativan) 0.5 mg PO HS PRN sleep 10/24/24 10/24/24 History sertraline 50 mg tablet 50 mg PO DAILY 10/24/24 10/24/24 History tramadol 50 mg tablet 50 mg PO Q12H PRN pain 10/24/24 10/24/24 History trazodone 50 mg tablet 50 mg PO HS PRN insomnia 10/24/24 10/24/24 History Allergies Allergy/AdvReac Type Severity Reaction Status Date / Time adhesive tape Allergy Mild Rash Verified 10/23/24 21:12 codeine Allergy Unknown Unknown Verified 10/23/24 21:12 Vital Signs Vital Signs - 24 hr 10/23/24 16:31 10/23/24 18:30 10/23/24 18:30 Temperature 97.8 F Pulse Rate 111 H Respiratory Rate 20 Blood Pressure 161/90 H Pulse Oximetry 93 88 L 99 Oxygen Delivery Room Air Room Air Nasal Cannula Oxygen Flow Rate 2 10/23/24 18:30 10/23/24 18:31 10/23/24 21:06 Temperature Pulse Rate 115 H 98 109 H Respiratory Rate 20 20 20 Blood Pressure 163/82 H 165/77 H 136/99 H Pulse Oximetry 98 100 98 Oxygen Delivery Oxygen Flow Rate Exam Narrative: Patient is laying in a stretcher Const: General: comfortable, no acute distress, well developed, alert, awake and underweight Nutritional Appearance: underweight Orientation/consciousness: oriented to person HENMT: Head: normal to inspection, normocephalic and atraumatic Ears: hearing grossly normal bilaterally Face/Nose/Sinus: normal facial exam Face and sinus: normal facial exam Eyes: General: appearance normal, both eyes and all related structures Pupils: Equal, round and reactive pupils present EOM: EOMs intact bilaterally Neck: Neck: full ROM, no lymphadenopathy and no JVD Thyroid: thyroid normal Lymphatic: no lymphadenopathy noted Resp: Effort & Inspection: normal respiratory effort and able to speak in complete sentences Auscultation: clear to auscultation bilaterally Cardio: Jugular venous distension: no JVD Rate: regular rate Rhythm: regular rhythm Heart sounds: S1 normal heart sound present and S2 normal heart sound present GI: GI Palp: Yes Soft to palpation and Yes No hepatosplenomegaly present : General: Yes deferred Skin: Rashes: no rashes Wounds: no wounds Neuro: General: oriented to person and CN's II-XI intact bilaterally Cranial nerves: Yes CN's II-XII intact bilaterally and Yes Equal, round and reactive pupils present Cognition (Neuro): normal cognition Speech: normal speech Gait exam (Neuro): Unable to assess gait Motor exam (neuro): 5/5 motor strength present throughout Extrem: General: normal to inspection, full ROM, no joint enlargement and no pedal edema Other: Right extremity is internally rotated and shortened H&P: Results Labs Labs: Short CBC 10/23/24 Range/Units 20:28 WBC 8.6 (4.5-10.0) K/mm3 Hgb 11.3 L (12.0-15.0) g/dL Hct 34.1 L (37.0-47.0) % Plt Count 214 (150-375) k/mm3 BMP 10/23/24 20:28 Sodium 136 L Potassium 3.9 Chloride 100 Carbon Dioxide 30 BUN 17 Creatinine 0.51 L Glucose 118 H Calcium 9.6 Liver Function 10/23/24 Range/Units 20:28 Total Bilirubin 1.3 (0.2-1.3) mg/dL AST 26 (14-36) U/L ALT 18 (6-35) U/L Alkaline Phosphatase 103 (38-126) U/L Albumin 3.7 (3.5-5.1) g/dL Assessment and Plan Assessment and plan (1) Fall from ground level: Code(s): W18.30XA - Fall on same level, unspecified, initial encounter Status: Acute Assessment and Plan: Admit to [facility] Fall precautions (2) Fracture of femoral neck, right: Qualifiers: Encounter type: initial encounter Fracture type: closed Qualified Code(s): S72.001A - Fracture of unspecified part of neck of right femur, initial encounter for closed fracture Code(s): S72.001A - Fracture of unspecified part of neck of right femur, initial encounter for closed fracture Status: Acute Assessment and Plan: Bed rest Supportive care Orthopedic surgery consult (3) Hypertension: Qualifiers: Hypertension type: essential hypertension Qualified Code(s): I10 - Essential (primary) hypertension Code(s): I10 - Essential (primary) hypertension Status: Acute Assessment and Plan: Resume home meds (4) New onset a-fib: Code(s): I48.91 - Unspecified atrial fibrillation Status: Acute Assessment and Plan: Continue to monitor (5) Gastroesophageal reflux disease without esophagitis: Code(s): K21.9 - Gastro-esophageal reflux disease without esophagitis Status: Acute Assessment and Plan: PPI (6) COPD (chronic obstructive pulmonary disease): Qualifiers: COPD type: unspecified COPD Qualified Code(s): J44.9 - Chronic obstructive pulmonary disease, unspecified Code(s): J44.9 - Chronic obstructive pulmonary disease, unspecified Status: Acute Assessment and Plan: Breathing treatments p.r.n. Not actively wheezing Hospitalist MIPS Advance Care Plan I have confirmed that the patient's Advanced Care Plan is present, code status is documented, or surrogate decision maker is listed in patient medical record.: Yes Medication Reconciliation I have utilized all available resources to obtain, update and review the patients current medications (includes all prescriptions, OTC, herbals, cannabis, and nutritional supplements).: Yes
[2024-10-23 21:27] LABS: Magnesium 1.8 mg/dL (1.6-2.3)
--- NOTE | 2024-10-23 21:45 | PC.NURSE ---
HOSPITALIST DR. DEMARCO DO 50MG PO TRAZADONE FOR PT INSOMNIA.
[2024-10-23] MEDS: SODIUM CHLORIDE 0.9% IV 1,000 ML 999 ML IV CONT (21:51)
[2024-10-23] MEDS: traZODone HCL 50 MG TABLET PO (22:17)
[2024-10-23 22:46] LABS: Glucose Point of Care 104 mg/dl (65-105)
[2024-10-23] MEDS: SODIUM CHLORIDE 0.9% IV 1,000 ML 75 ML IV CONT (23:33)
[2024-10-23 23:41] VITALS: BMI 18.5
[2024-10-23 23:42] VITALS: PULSE 104
--- NOTE | 2024-10-23 23:43 | ADMGEN ---
This patient, Alberta Trejo, was admitted to Medical Room 341-01. Patient/family oriented to hospital policies and general routines including ID bracelet, bed and alarms, visiting hours, pain management, procedures, bathroom and other care routines, personal items, smoking policy, room service/diet, and visiting hours. Information on how to activate the Rapid Response Team has been discussed. Patient/Family are encouraged to report perceived risks to care and to ask questions if they do not understand what they are told or what they should do.
[2024-10-23 23:55] VITALS: BP 172/91; PULSE 67; RESP 16; TEMP 36.8; O2SAT 100
[2024-10-24] VITALS: PULSE 96
--- NOTE | 2024-10-24 00:24 | PC.NURSE ---
Code status verified with POA/son, Keagan Trejo that patient is a DNR. Verified via phone with 2nd nurse witness, Debo Sneed RN.
--- NOTE | 2024-10-24 00:26 | PC.NURSE ---
Unable to confirm medications due to incomplete directions on med list from facility. Call placed to [facility] Finney but no nurse on site until 0700.
[2024-10-24 00:27] VITALS: O2SAT 100
[2024-10-24 04:00] VITALS: PULSE 92
[2024-10-24] MEDS: LEVOTHYROXINE SODIUM 50 MCG TABLET PO (05:40)
[2024-10-24] MEDS: MORPHINE SULFATE (*CRX) 2 MG/ML INJ IV PUSH (05:40)
[2024-10-24 06:00] VITALS: BP 127/70; PULSE 96; RESP 14; TEMP 36.7; O2SAT 98
[2024-10-24 08:00] VITALS: PULSE 96; RESP 14; O2SAT 98
--- NOTE | 2024-10-24 11:01 | P.PNIM_ITS ---
Progress Note: A&P Assessment and Plan (1) Fall from ground level: Code(s): W18.30XA - Fall on same level, unspecified, initial encounter Status: Acute Assessment and Plan: patient brought to the emergency department after multiple falls at home for evaluation * PT/OT (2) Fracture of femoral neck, right: Qualifiers: Encounter type: initial encounter Fracture type: closed Qualified Code(s): S72.001A - Fracture of unspecified part of neck of right femur, initial encounter for closed fracture Code(s): S72.001A - Fracture of unspecified part of neck of right femur, initial encounter for closed fracture Status: Acute Assessment and Plan: * CT Possible nondisplaced right humeral neck fracture at the subcapital location. Recommend correlation with MRI for confirmation. * ortho consulted * MRI was ordered but family refused MRI and does not want any interventions * pain management * PT/OT * SCD's L (3) Hypertension: Qualifiers: Hypertension type: essential hypertension Qualified Code(s): I10 - Essential (primary) hypertension Code(s): I10 - Essential (primary) hypertension Status: Acute Assessment and Plan: * Resume home meds * BP monitoring per unit protocol (4) New onset a-fib: Code(s): I48.91 - Unspecified atrial fibrillation Status: Acute Assessment and Plan: * EKG with AFIB HR 96 (5) Gastroesophageal reflux disease without esophagitis: Code(s): K21.9 - Gastro-esophageal reflux disease without esophagitis Status: Acute Assessment and Plan: * PPI (6) COPD (chronic obstructive pulmonary disease): Qualifiers: COPD type: unspecified COPD Qualified Code(s): J44.9 - Chronic obstructive pulmonary disease, unspecified Code(s): J44.9 - Chronic obstructive pulmonary disease, unspecified Status: Acute Assessment and Plan: * Breathing treatments p.r.n. * Not actively wheezing does not appear in exacerbation * supplemental oxygen p.r.n. Plan Code status: Full code per patient DVT prophylaxis: Lovenox Stress ulcer prophylaxis: Protonix 40 daily PT/OT notes: PT/OT for discharge planning Disposition: patient was admitted after a fall and right femoral neck fracture family at this time does not want any further surgical interventions Time Spent With Patient Time with patient: 15 - 25 minutes Subjective Date/time seen: 10/24/24 11:01 Interval history: Patient is 88-year-old female who was admitted for further evaluation and treatment after she sustained multiple falls and suffered a right humeral neck fracture. 10/24/24: Assumed Care Review of Systems Review of Systems: ROS unobtainable: Yes unobtainable due to medical condition (Dementia) Exam Narrative: * GENERAL: Alert and oriented x 1. No acute distress. * EYES: EOMI. No scleral icterus. PERRLA. * HEENT: Moist mucous membranes. * LUNGS: Clear to auscultation bilaterally. No accessory muscle use. * CARDIOVASCULAR: Regular rate and rhythm. No murmur. No JVD. S1-S2 * ABDOMEN: Soft, non tenderness and non-distended. No palpable masses. * EXTREMITIES: No edema. Non-tender * SKIN: No rashes or lesions. Skin warm, dry. * NEUROLOGIC: No focal neurological deficits. CN II-XII grossly intact * PSYCHIATRIC: Objective Data Vital Signs Vital Signs: Vital Signs - 24 hr 10/23/24 16:31 10/23/24 18:30 10/23/24 18:30 Temperature 97.8 F Pulse Rate 111 H Respiratory Rate 20 Blood Pressure 161/90 H Pulse Oximetry 93 88 L 99 Oxygen Delivery Room Air Room Air Nasal Cannula Oxygen Flow Rate 2 10/23/24 18:30 10/23/24 18:31 10/23/24 21:06 Temperature Pulse Rate 115 H 98 109 H Respiratory Rate 20 20 20 Blood Pressure 163/82 H 165/77 H 136/99 H Pulse Oximetry 98 100 98 Oxygen Delivery Oxygen Flow Rate 10/23/24 23:42 10/23/24 23:55 10/24/24 00:00 Temperature 98.3 F Pulse Rate 104 H 67 96 Respiratory Rate 16 Blood Pressure 172/91 H Pulse Oximetry 100 Oxygen Delivery Oxygen Flow Rate 10/24/24 00:27 10/24/24 04:00 10/24/24 06:00 Temperature 98.1 F Pulse Rate 92 96 Respiratory Rate 14 Blood Pressure 127/70 Pulse Oximetry 100 98 Oxygen Delivery Nasal Cannula Oxygen Flow Rate 2 10/24/24 08:00 Temperature Pulse Rate 96 Respiratory Rate 14 Blood Pressure Pulse Oximetry 98 Oxygen Delivery Nasal Cannula Oxygen Flow Rate 2 Intake/Output Intake/Output: Intake & Output 10/21/24 10/22/24 10/23/24 10/24/24 23:59 23:59 23:59 23:59 Intake Total 1000 Output Total 450 Balance 1000 -450 Meds/Results Medications: Active Medications Generic Name Dose Route Start Last Admin Trade Name Freq PRN Reason Stop Dose Admin Acetaminophen 650 mg 10/24/24 05:00 Acetaminophen 325 Mg Tablet PO Q8H PRN pain 1-3 Albuterol 2 puff 10/24/24 05:00 Albuterol Sulfate (*Sp) Aerosol 1 Puff INHALATION QIDRT PRN shortness of breath or wheezing Dextrose 12.5 gm 10/23/24 21:12 Dextrose 50% 25 Gm/50 Ml Syringe IV PUSH PRN PRN Hypoglycemia Protocol Glucagon 1 mg 10/23/24 21:12 Glucagon For Inj 1 Mg Vial IM PRN PRN Hypoglycemia Protocol Glucose 15 gm 10/23/24 21:12 Glucose Oral Gel 15 Gm Of Glucse In 37.5 Gm Tube PO PRN PRN Hypoglycemia Protocol Sodium Chloride 1,000 mls @ 75 mls/hr 10/23/24 21:15 10/23/24 23:33 Normal Saline Iv IV CONT 75 mls/hr .[id number] SUSI Administration Dextrose 1,000 mls @ 100 mls/hr 10/23/24 21:12 Dextrose 5% 1,000 Ml IVPB PRN PRN Hypoglycemia Protocol Levothyroxine Sodium 50 mcg 10/24/24 06:30 10/24/24 05:40 Levothyroxine Sodium 50 Mcg Tablet PO 50 mcg DAILY@0630 SUSI Administration Morphine Sulfate 2 mg 10/23/24 21:12 10/24/24 05:40 Morphine Sulfate (*Crx) 2 Mg/Ml Inj IV PUSH 2 mg Q2H PRN Administration Pain Rated 7-10 Ondansetron HCl 4 mg 10/23/24 21:12 Ondansetron Inj 4 Mg/2 Ml Vial IV PUSH Q4H PRN Nausea Sertraline HCl 50 mg 10/24/24 09:00 Sertraline Hcl 50 Mg Tablet PO DAILY SUSI Tramadol HCl 50 mg 10/24/24 05:00 Tramadol Hcl (*Crx) 50 Mg Tablet PO Q12H PRN pain 4-6 Trazodone HCl 50 mg 10/23/24 21:45 10/23/24 22:17 Trazodone Hcl 50 Mg Tablet PO 50 mg HS PRN Administration Insomnia Radiology Results: ITS Impressions Hip/Pelvis X-Ray 10/23/24 17:50 Impression: 1: No acute fracture. Head CT 10/23/24 18:29 IMPRESSION: 1. No acute intracranial abnormality. Pelvis CT 10/23/24 18:35 IMPRESSION: 1. Possible nondisplaced right humeral neck fracture at the subcapital location. Recommend correlation with MRI for confirmation. ADDENDUM: 10/23/24 1848 Correction: Possible nondisplaced right FEMORAL neck fracture in the subcapital location. Cervical Spine CT 10/23/24 18:38 IMPRESSION: 1. No acute abnormality of the cervical spine. 2: Severe cervical spondylosis. Labs Labs: Laboratory Results - last 24 hr 10/23/24 10/23/24 20:28 22:43 WBC 8.6 RBC 3.31 L Hgb 11.3 L Hct 34.1 L MCV 103.0 H MCH 34.1 H MCHC 33.1 RDW 14.7 H Plt Count 214 MPV 9.5 Immature Gran % (Auto) 0.3 Neut % (Auto) 75.6 H Lymph % (Auto) 15.8 L [place] % (Auto) 7.8 Eos % (Auto) 0.2 Baso % (Auto) 0.3 Lymph # (Auto) 1.36 [place] # (Auto) 0.7 H Eos # (Auto) 0.0 Baso # (Auto) 0.0 Abs Immat Gran (auto) 0.03 Absolute Neuts (auto) 6.5 Absolute Nucleated RBC 0.000 Nucleated RBC % 0.0 PT 15.7 H INR 1.2 APTT 30.0 Sodium 136 L Potassium 3.9 Chloride 100 Carbon Dioxide 30 Anion Gap 6 BUN 17 Creatinine 0.51 L Estim Creat Clear Calc 45 Estimated GFR > 60 Glucose 118 H POC Capillary Glucose 104 Calcium 9.6 Magnesium 1.8 Total Bilirubin 1.3 AST 26 ALT 18 Alkaline Phosphatase 103 Total Protein 8.0 Albumin 3.7 Quality VTE Prophylaxis VTE prophylaxis: mechanical ordered -Patient's previous records reviewed on admission -ER notes reviewed in detail on admission -discussed all findings and current treatment plan with patient/Family/POA -Consultations reviewed for recommendations -Patient's disposition for safe discharge discussed with case manager Dictation performed by [employer] direct speech recognition software, therefore boilermaker variants and typographical errors may occur. Hospitalist MIPS Advance Care Plan I have confirmed that the patient's Advanced Care Plan is present, code status is documented, or surrogate decision maker is listed in patient medical record.: Yes Medication Reconciliation I have utilized all available resources to obtain, update and review the patients current medications (includes all prescriptions, OTC, herbals, cannabis, and nutritional supplements).: Yes The patient is not eligible for med reconciliation; the patient is in a emergent medical situation where delaying treatment would jeopardize the patients health.: No
[2024-10-24 11:59] VITALS: PULSE 74; RESP 16
[2024-10-24] MEDS: MORPHINE 50 MG/NS 100ML (*CRX) 50 MG/100 ML BAG IV CONT (11:59)
--- NOTE | 2024-10-24 14:32 | P.DS_ITS ---
DS: Admitting Diagnosis Discharge Date 10/24/2024 Admitting Diagnosis Right femoral neck fracture/Failure to thrive/Dementia DS: Discharge Diagnosis Discharge Diagnosis (1) Fall from ground level: Code(s): W18.30XA - Fall on same level, unspecified, initial encounter Status: Acute Assessment and Plan: (2) Fracture of femoral neck, right: Qualifiers: Encounter type: initial encounter Fracture type: closed Qualified Code(s): S72.001A - Fracture of unspecified part of neck of right femur, initial encounter for closed fracture Code(s): S72.001A - Fracture of unspecified part of neck of right femur, initial encounter for closed fracture Status: Acute Assessment and Plan: * CT Possible nondisplaced right humeral neck fracture at the subcapital location. Recommend correlation with MRI for confirmation. * No surgical interventions (3) Hypertension: Qualifiers: Hypertension type: essential hypertension Qualified Code(s): I10 - Essential (primary) hypertension Code(s): I10 - Essential (primary) hypertension Status: Acute Assessment and Plan: * Resume home meds * BP monitoring per unit protocol (4) New onset a-fib: Code(s): I48.91 - Unspecified atrial fibrillation Status: Acute Assessment and Plan: * EKG with AFIB HR 96 (5) Gastroesophageal reflux disease without esophagitis: Code(s): K21.9 - Gastro-esophageal reflux disease without esophagitis Status: Acute Assessment and Plan: * PPI (6) COPD (chronic obstructive pulmonary disease): Qualifiers: COPD type: unspecified COPD Qualified Code(s): J44.9 - Chronic obstructive pulmonary disease, unspecified Code(s): J44.9 - Chronic obstructive pulmonary disease, unspecified Status: Acute Assessment and Plan: * Breathing treatments p.r.n. * Not actively wheezing does not appear in exacerbation * supplemental oxygen p.r.n. (7) Failure to thrive: Status: Acute (8) Dementia: Code(s): F03.90 - Unspecified dementia, unspecified severity, without behavioral disturbance, psychotic disturbance, mood disturbance, and anxiety Status: Acute (9) Amyloidosis, unspecified: Code(s): E85.9 - Amyloidosis, unspecified Status: Acute (10) Malnutrition: Code(s): E46 - Unspecified protein-calorie malnutrition Status: Acute Plan Discharged to inpatient hospice DS: Summary Hospital Course Reason for hospitalization: Right femoral neck fracture/Failure to thrive/Dementia Hospital Course: Patient was 88Year old female who presented to the emergency department after a fall at her memory care was brought in via EMS and found to have a right femoral neck fracture. she has a known history of advanced dementia, amyloidosis, HTN, DJD, emphysema. Patient was initially admitted to the medical unit with consult to Orthopedic surgery plan was for a follow-up MRI however at this time patient requested pain control no surgical interventions and no MRI. Patient continue to have history of failure to thrive and malnutrition prior to arrival. upon evaluation patient only responding to painful stimuli had been receiving 2 mg IV push of morphine with continued moderate to severe pain. started patient on a morphine drip of 1 mg/hr an IV push Ativan with comfort orders with plan to increase morphine drip for comfort. Patient continued to moan to simple touch and was tachycardic with poor oral intake. care coordination was consulted for hospice referral which time patient was seen with family at bedside by [facility] hospice Plated. patient was discharged to inpatient hospice and care transition it to a [facility]. Status at Discharge Overall status at discharge: other (Hospice) Time Spent with Patient Time attestation: Total time spent providing and/or coordinating discharge services: Time spent: Greater than 30 minutes Exam Narrative: * GENERAL: Alert and oriented to name. Moaning out in pain/grimaces to touch, malnutrition * EYES: EOMI. No scleral icterus. PERRLA. * HEENT: Moist mucous membranes. * LUNGS: Clear to auscultation bilaterally. No accessory muscle use. * CARDIOVASCULAR: Irregular irregular. * ABDOMEN: Soft, non tenderness and non-distended. No palpable masses. * EXTREMITIES: TTP in R proximal thigh/hip. Limited ROM of RLE due to pain. * SKIN: No rashes or lesions. Skin warm, dry. * NEUROLOGIC: Unable to assess * PSYCHIATRIC: Unable to assess DS: Data Data Completed and Pending Labs on day of discharge: Labs from last 24 hours 10/23/24 10/23/24 22:43 20:28 WBC 8.6 RBC 3.31 L Hgb 11.3 L Hct 34.1 L MCV 103.0 H MCH 34.1 H MCHC 33.1 RDW 14.7 H Plt Count 214 MPV 9.5 Immature Gran % (Auto) 0.3 Neut % (Auto) 75.6 H Lymph % (Auto) 15.8 L [place] % (Auto) 7.8 Eos % (Auto) 0.2 Baso % (Auto) 0.3 Lymph # (Auto) 1.36 [place] # (Auto) 0.7 H Eos # (Auto) 0.0 Baso # (Auto) 0.0 Abs Immat Gran (auto) 0.03 Absolute Neuts (auto) 6.5 Absolute Nucleated RBC 0.000 Nucleated RBC % 0.0 PT 15.7 H INR 1.2 APTT 30.0 Sodium 136 L Potassium 3.9 Chloride 100 Carbon Dioxide 30 Anion Gap 6 BUN 17 Creatinine 0.51 L Estim Creat Clear Calc 45 Estimated GFR > 60 Glucose 118 H POC Capillary Glucose 104 Calcium 9.6 Magnesium 1.8 Total Bilirubin 1.3 AST 26 ALT 18 Alkaline Phosphatase 103 Total Protein 8.0 Albumin 3.7 Imaging Radiologist's impression: Imaging Data Attestation: I personally reviewed and interpreted this imaging study as follows: Radiologist's impression: ITS Impressions Hip/Pelvis X-Ray 10/23/24 17:50 Impression: 1: No acute fracture. Head CT 10/23/24 18:29 IMPRESSION: 1. No acute intracranial abnormality. Pelvis CT 10/23/24 18:35 IMPRESSION: 1. Possible nondisplaced right humeral neck fracture at the subcapital location. Recommend correlation with MRI for confirmation. ADDENDUM: 10/23/24 1848 Correction: Possible nondisplaced right FEMORAL neck fracture in the subcapital location. Cervical Spine CT 10/23/24 18:38 IMPRESSION: 1. No acute abnormality of the cervical spine. 2: Severe cervical spondylosis. ECG Data EKG #1: Attestation: I personally reviewed and interpreted this ECG as follows: ECG completion date: 10/23/24 ECG completion time: 20:55 EKG Interpretation: tachycardia (123), atrial fibrillation and non- specific ST changes Additional Comments Additional comments: -Patient's previous records reviewed on admission -ER notes reviewed in detail on admission -discussed all findings and current treatment plan with patient/Family/POA -Consultations reviewed for recommendations -Patient's disposition for safe discharge discussed with case manager Dictation performed by [employer] direct speech recognition software, therefore kindergarten teacher assistant variants and typographical errors may occur. Discharge Plan Discharge Attending physician on discharge: Michael Rutledge Consulting providers: Jam Stroud Discharging Clinician: Sunitha Little Anticipated Discharge Date/Time: 10/24/24 14:31 Patient Disposition: Hospice - Medical Facility Patient Language: Indian Stand Alone Forms: General Discharge Information Discharge Medications: Discontinued furosemide [Lasix] 20 mg tablet 20 mg PO QAM Qty: 30 4RF acetaminophen 325 mg tablet 650 mg PO .q8hr PRN (Reason: pain) cyclobenzaprine 5 mg tablet 5 mg PO Q8H PRN (Reason: muscle spasm) sertraline 50 mg tablet 50 mg PO DAILY tramadol 50 mg tablet 50 mg PO Q12H PRN (Reason: pain) albuterol sulfate 90 mcg/actuation HFA aerosol inhaler 2 inh inhalation QID PRN (Reason: shortness of breath or wheezing) lorazepam [Ativan] 0.5 mg tablet 0.5 mg PO HS PRN (Reason: sleep) lidocaine 4 % adhesive patch,medicated 2 patch topical DAILY PRN (Reason: pain) Rx Instructions: may leave on for up to 12 hrs apply to bilateral knees trazodone 50 mg tablet 50 mg PO HS PRN (Reason: insomnia) amlodipine 5 mg tablet 5 mg PO DAILY Qty: 90 1RF levothyroxine 50 mcg tablet 50 mcg PO DAILY Qty: 90 1RF losartan 50 mg tablet 50 mg PO DAILY Qty: 90 3RF Date of admission: 10/24/24 07:55 Primary Care Provider: Woody Akins Admitting Provider: Destin Lambert V. Attending physician on admission: Sunitha Little Condition: Terminal Quality VTE Prophylaxis VTE prophylaxis: mechanical ordered -Patient's previous records reviewed on admission -ER notes reviewed in detail on admission -discussed all findings and current treatment plan with patient/Family/POA -Consultations reviewed for recommendations -Patient's disposition for safe discharge discussed with case manager Dictation performed by [employer] direct speech recognition software, therefore kindergarten teacher assistant variants and typographical errors may occur. Hospitalist MIPS Heart Failure (Exclusion) Patient has history of Heart Transplant or Left Ventricular Assistive Device?: No IF YES, STOP HERE Heart Failure (Qualifier) Patient has current or prior documentation of LVEF less than or equal to 40%, or mod/servere depressed LVSF?: No IF NO, STOP HERE
[2024-10-24] MEDS: LORazepam INJ (*CRX) 2 MG/ML VIAL 1 MG IV PUSH (15:24)
== END 2024-10-24 16:07 | disposition hospice, inpatient (51) | DRG 536 ==
LOC: ANHED 17:48 → ANH3MEDSUR 22:14 → ANH3MED 22:30
PROVIDERS: Admitting Provider Internal Medicine; Emergency Provider Physician Assistant; PCP Internal Medicine; Visit Provider Nurse Practitioner Family
DX: S72.011A Unspecified intracapsular fracture of right femur, initial encounter for closed fracture (principal); E85.9 Amyloidosis, unspecified; Z68.1 Body mass index [BMI] 19.9 or less, adult; S00.83XA Contusion of other part of head, initial encounter; I10 Essential (primary) hypertension; I48.91 Unspecified atrial fibrillation; E78.5 Hyperlipidemia, unspecified; R62.7 Adult failure to thrive; J43.9 Emphysema, unspecified; K21.9 Gastro-esophageal reflux disease without esophagitis; K44.9 Diaphragmatic hernia without obstruction or gangrene; M16.0 Bilateral primary osteoarthritis of hip; M70.60 Trochanteric bursitis, unspecified hip; R91.8 Other nonspecific abnormal finding of lung field; F03.90 Unspecified dementia, unspecified severity, without behavioral disturbance, psychotic disturbance, mood disturbance, and anxiety; W19.XXXA Unspecified fall, initial encounter; Z96.659 Presence of unspecified artificial knee joint; Z51.5 Encounter for palliative care
CPT/HCPCS: 36415; 70450; 72125; 72192; 73080; 73502; 80053; 81003; 82948; 83735; 85025; 85610; 85730; 93005; 96361; 96374; 96375; 96376; 99284; 99285; A9270; G0378; J2060; J2270; J2405; J7030

== ENCOUNTER 2024-10-24 16:08 | HOS | payer OTHER, MEDICARE, SELFPAY ==
[2024-10-24 19:56] VITALS: PULSE 80; RESP 10
[2024-10-24] MEDS: MORPHINE 50 MG/NS 100ML (*CRX) 50 MG/100 ML BAG IV CONT (19:56)
--- NOTE | 2024-10-25 01:30 | PC.NURSE ---
Called into room by patient's family reporting that they thought patient had . Upon assessment, patient with no respirations or pulse. Charge nurse called to bedside to confirm expiration.
--- NOTE | 2024-10-25 13:43 | P.HP_ITS ---
H&P: HPI History of Present Illness Date/Time: 10/25/24 13:43 Chief Complaint: UNCONTROLLED PAIN Narrative: 88 y/o f with hx dementia was admitted 10/23 via ED due to hip fx. Evaluated and deemed not a surgical candidate. 10/24 AM was writhing in pain in spite of receiving morphine 2 mg iv q 2 hr prn Morphine drip was initiated at 1 mg/hr. Pain improved. Still moans or yells if touched. No eating or drinking. Review of Systems Review of Systems: ROS unobtainable: Yes unobtainable due to medical condition [facility] Past Medical History Medical History Osteoarthritis of hips, bilateral Other amyloidosis Pulmonary nodules Bilateral shoulder pain Trochanteric bursitis Hyperlipidemia Amyloidosis, unspecified R ureter Degenerative joint disease Hiatal hernia Hypertension GERD (gastroesophageal reflux disease) Emphysema lung Lung nodule Surgical History Surgical History History of carpal tunnel release History of back surgery Dr. Mena History of knee replacement [place] Family History Family History Mother Hypertension Diabetes mellitus Other Family history of arthritis Social History Social History Social History: Caffeine-coffee Smoking status: Never smoker Second hand tobacco smoke exposure: No Alcohol intake: never Substance use: never Substance use type: does not use Do You Feel Safe in your Home?: Yes Lack of Transportation: No Lack of Food: Never True Current Housing: I Have Housing Concerned About Future Housing: No Difficulty Paying Gas/Electric Bills: No Difficulty Paying for Meds: No Currently Unemployed: No Education: Don't Know Difficulty w/ Childcare or Family Care: No Living arrangements: assisted living Occupation/Education: retired Gender identity (if verbalized by the patient): Female Spiritual care concerns: No Meds Home Medications and Allergies Home Medications ?Medication ?Instructions ?Recorded ?Confirmed ?Type amlodipine 5 mg tablet 5 mg PO DAILY #90 tabs 09/27/22 10/24/24 Rx levothyroxine 50 mcg tablet 50 mcg PO DAILY #90 tabs 03/17/23 10/24/24 Rx losartan 50 mg tablet 50 mg PO DAILY #90 tabs 04/27/23 10/24/24 Rx furosemide 20 mg tablet (Lasix) 20 mg PO QAM #30 tabs 06/26/24 10/24/24 Rx acetaminophen 325 mg tablet 650 mg PO .q8hr PRN pain 10/24/24 10/24/24 History albuterol sulfate 90 mcg/actuation 2 inh inhalation QID PRN shortness 10/24/24 10/24/24 History aerosol inhaler of breath or wheezing cyclobenzaprine 5 mg tablet 5 mg PO Q8H PRN muscle spasm 10/24/24 10/24/24 History lidocaine 4 % topical patch 2 patch topical DAILY PRN pain 10/24/24 10/24/24 History lorazepam 0.5 mg tablet (Ativan) 0.5 mg PO HS PRN sleep 10/24/24 10/24/24 History sertraline 50 mg tablet 50 mg PO DAILY 10/24/24 10/24/24 History tramadol 50 mg tablet 50 mg PO Q12H PRN pain 10/24/24 10/24/24 History trazodone 50 mg tablet 50 mg PO HS PRN insomnia 10/24/24 10/24/24 History Allergies Allergy/AdvReac Type Severity Reaction Status Date / Time adhesive tape Allergy Mild Rash Verified 10/23/24 21:12 codeine Allergy Unknown Unknown Verified 10/23/24 21:12 Vital Signs Vital Signs - 24 hr 10/24/24 16:38 10/24/24 19:56 10/24/24 20:00 Pulse Rate 80 Respiratory Rate 10 L Oxygen Delivery Room Air Room Air Exam Narrative: prior to my exam Assessment and Plan Assessment and plan (1) Hospice care: Code(s): Z51.5 - Encounter for palliative care Status: Acute Assessment and Plan: * Meets inpatient hospice criteria due to requiring continuous IV morphine for symptom control. * PRN palliative medications ordered. (2) Fracture of femoral neck, right: Qualifiers: Encounter type: initial encounter Fracture type: closed Qualified Code(s): S72.001A - Fracture of unspecified part of neck of right femur, initial encounter for closed fracture Code(s): S72.001A - Fracture of unspecified part of neck of right femur, initial encounter for closed fracture Status: Acute (3) Dementia: Code(s): F03.90 - Unspecified dementia, unspecified severity, without behavioral disturbance, psychotic disturbance, mood disturbance, and anxiety Status: Acute (4) COPD (chronic obstructive pulmonary disease): Qualifiers: COPD type: unspecified COPD Qualified Code(s): J44.9 - Chronic obstructive pulmonary disease, unspecified Code(s): J44.9 - Chronic obstructive pulmonary disease, unspecified Status: Acute (5) Amyloidosis, unspecified: Code(s): E85.9 - Amyloidosis, unspecified Status: Acute (6) Hypertension: Qualifiers: Hypertension type: essential hypertension Qualified Code(s): I10 - Essential (primary) hypertension Code(s): I10 - Essential (primary) hypertension Status: Acute (7) New onset a-fib: Code(s): I48.91 - Unspecified atrial fibrillation Status: Acute
--- NOTE | 2024-10-25 13:54 | PM.DDS ---
Discharge Summary Date and Time Date of : 10/25/24 Time of : 01:30 Provider Pronounced By: 2 RNs Name of First RN That Pronounced: Debo Perkins RN Name of Second RN That Pronounced: Ann Kuo RN Probable Cause of Probable Cause of : hip fracture secondary to fall from standing height secondary to dementia Summary Hospital Course: Admitted to inpatient hospice service due to uncontrolled pain following right hip fracture. Medications were titrated to comfort. Mrs. Trejo peacefully. Additional Data Confirmation of as documented by pronouncing clinician: Pupillary Reflex, Palpable Pulses, Response to Stimuli, Heart Tones and Breath Sounds Name of Provider Notified: Danitza Time Provider Notified: 01:42 Family Requests Autopsy: No Refinery Operator V[facility] Notified: Yes Date [facility] Notified of : 10/25/24 Time [facility] Notified of : 01:45
--- OUTSIDE RECORDS SUMMARY | 2024-10-31 04:11 | XMS_ITS | Encounter Summary ---
Author Organization [facility] Address [address] [place] [address] Care Team Providers Care Manufacturing Planner Name Role Phone Mitch Whittaker MD Primary Care Provider [phone] Jj Schneider DO Primary Care Provider [phone] Sharita Norman MD Primary Care Provider Encounter Details Date Type Department Care Team (Late st Contact Info) Description 03/13/2019 Lab Requisition [facility] Care Pathology Lab [address] [place] [address] Landry Morfin MD [address] [address] Social History Tobacco Use Types Packs/Day Years Used Date Smoking Tobacco: Never Assessed Sex and Gender Information Value Date Recorded Sex Assigned at Not on file Gender Identity Not on file Sexual Orientation Not on file documented as of this encounter Plan of Treatment Upcoming Encounters Date Type Department Care Team (Late st Contact Info) Description 01/17/2025 11:00 AM CDT Office Visit [facility] [address], [facility] [address] [place] [address] Sharita Norman MD [address] [place] [address] documented as of this encounter Procedures Procedure Name Priority Date/Time Associated Diagnosis Comments BONE MARROW BIOPSY (STL) Routine 03/11/2019 9:56 AM CDT documented in this encounter Results * BONE MARROW BIOPSY (STL) (03/11/2019 9:56 AM CDT) Case Report Bone Marrow Patholog y Report ?Case: [id number] ? Authorizing Provider: ??Landry Morfin MD ?Collected: ? 03/11/2019 09:56 AM ? Pathologist: ? Malina Thakur MD ?? Received: ?03/13/2019 08:13 AM ? Specimens: ?? A) - Bone Marrow Core, BM19-15 ? B) - Bone Marrow Clot, BM19-15 ? C) - Blood Peripheral, BM19-15 ? D) - Bone Marrow Aspirate, BM19-15 ? 03/13/2019 4:[address] [facility] Final Diagnosis Bone marrow, aspirate, clot section, and core biopsy ([id number]): - Hypercellular marrow with maturing trilineage hematopoiesis. - No evidence of plasma cell dyscrasia, lymphoma, or high-grade myeloid neoplasm. - No evidence of amyloid deposition. - See description. Peripheral blood smear: - Macrocytosis. - See description. 03/13/2019 4:[address] [facility] Comment Overall, the bone marrow specimen is hypercellular for age with maturing trilineage hematopoiesis and no evidence of a plasma cell dyscrasia, lymphoma, or a high-grade myeloid neoplasm. No amyloid deposition is identified by Congo red staining. Concurrent bone marrow flow cytometry ([id number]) shows a hemodilute specimen with no evidence of involvement by a plasma cell dyscrasia, non-Hodgkin lymphoma, or a high-grade myeloid neoplasm. Correlation with clinical findings and relevant cytogenetic/molecular testing is required. KR/NW 03/13/2019 4:[address] [facility] Peripheral Smear Description CBC Data: WBC - 6.1, Hgb - 13, MCV - 104.7, MCHC - 34.1, and Plt - 171. Manual Differential Count (100 cells): 60% neutrophils, 27% lymphocytes, 10% monocytes, 2% eosinophils, and 1% basophils. Leukocyte number: normal. Granulocyte morphology: normal. Lymphocyte morphology: normal; no circulating plasma cells seen. Erythrocyte number: decreased. Erythrocyte morphology: macrocytic. Anisopoikilocytosis: not significant. Polychromasia: not significant. Platelet number: normal. Platelet morphology: normal. 03/13/2019 4:[address] [facility] Bone Marrow Aspirate Due to the aspicular, paucicellular, and hemodilute nature of the specimen, a differential count of the bone marrow aspirate is not performed. Please note that due to the lack of spicules, the morphologic assessment is limited. An iron stain reviewed on the aspirate smear, with appropriately reactive control, shows decreased stainable storage and sideroblastic iron, but is suboptimal due to a lack of spicules and low number of erythroid progenitor cells present. 03/13/2019 4:[address] [facility] Bone Marrow Core Biopsy and Clot Section Description Specimen quality: The decalcified bone marrow core biopsy is adequate for evaluation. Cellularity: Hypercellular for age; estimated 50%. Trilineage Hematopoiesis: present. Myeloid: Erythroid ratio: normal. Myeloid maturation and localization: normal. Erythroid maturation and localization: normal. Megakaryocyte number: normal. Megakaryocyte distribution: normal. Lymphoid aggregates: Rare very small benign-appearing interstitial lymphoid aggregates are present. Bone trabeculae: normal. Blood vessels: normal. Other: Scattered plasma cells seen; no granulomas seen. Clot section marrow particles: Scant. Clot section morphology: similar to core biopsy. An iron stain reviewed on the clot section, with appropriately reactive control, shows decreased stainable storage iron, but is suboptimal due to a paucity of marrow particles. Immunohistochemical stains, and a Congo Red special stain, are performed on the core biopsy in the [facility] Department of Pathology, with appropriately reactive controls, to further assess for a plasma cell infiltrate given the hemodilute nature of the flow cytometry specimen and demonstrate the following: CD138 highlights a population of plasma cells comprising an estimated 5% of the marrow cellularity with no atypical clusters noted. [place] and lambda each highlight appropriate proportions of the plasma cells, confirming a polyclonal population. The Congo Red stain demonstrates no amyloid deposition with adequate blood vessels present for evaluation. 03/13/2019 4:[address] [facility] Flow Cytometry Summary Concurrent bone marrow flow cytometry ([id number]) shows a hemodilute specimen with no evidence of involvement by a plasma cell dyscrasia, non-Hodgkin lymphoma, or a high-grade myeloid neoplasm. 03/13/2019 4:[address] 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 03/13/2019 4:[address] [facility] Materials Received Received are 15 slides and 2 blocks labeled as [id number] along with the outside pathology report. [place] [address]. All materials are returned to the referring institution, along with a copy of our final report. 03/13/2019 4:[address] [facility] Disclaimer The performance characteristics of all immunohistochemical and indirect immunofluorescence stains (if any) cited in this report were determined by the Histopathology Laboratory of [facility]. Some of these tests were developed by our own laboratory and have not been cleared or approved by the US Food and Drug Administration. The FDA does not require this test to go through premarket FDA review. These tests are used for clinical purposes. They should not be regarded as investigational or for research. This laboratory is certified under the Clinical Laboratory Improvement Amendments (CLIA) as qualified to perform high complexity clinical laboratory testing. This case has been personally reviewed and interpreted by the attending (teaching) pathologist. 03/13/2019 4:17 PM CDT [facility] Embedded Images 03/13/2019 4:17 PM CDT [facility] Pathology/Cytology SPECIMEN FROM BONE MARROW OBTAINED BY ASPIRATION / Unknown 03/11/2019 9:56 AM CDT 03/13/2019 8:13 AM CDT Miscellaneous samples (specimen) BONE MARROW CLOT SPECIMEN / Unknown 03/11/2019 9:56 AM CDT 03/13/2019 8:13 AM CDT Miscellaneous samples (specimen) PERIPHERAL BLOOD / Unknown 03/11/2019 9:56 AM CDT 03/13/2019 8:13 AM CDT Miscellaneous samples (specimen) SPECIMEN FROM BONE MARROW OBTAINED BY ASPIRATION / Unknown 03/11/2019 9:56 AM CDT 03/13/2019 8:13 AM CDT Landry Morfin MD LAB - PATHOLOGY/CYTO LOGY ORDERABLES Performing Organization Address [facility] de Phone Number [facility] PATHOLOGY LAB [address] [phone] documented in this encounter Visit Diagnoses Not on filedocumented in this encounter Care Teams Manufacturing Planner Relationship Specialty Start Date End Date Mitch Whittaker MD [address] [place] [address] PCP - General 08/24/10 02/18/24 Jj cShneider DO [address] [address] PCP - General Internal Medicine 02/19/24 08/29/24 Sharita Norman MD [address] [place] [address] PCP - General Internal Medicine Geriatric Medicine 08/30/24 documented as of this encounter
--- OUTSIDE RECORDS SUMMARY | 2024-10-31 04:11 | XMS_ITS | Encounter Summary ---
Author Organization [facility] Address [address] [place] [address] Care Team Providers Care Warehouse Supervisor 3Rd Shift Name Role Phone Mitch Whittaker MD Primary Care Provider [phone] Jj Schneider DO Primary Care Provider [phone] Sharita Norman MD Primary Care Provider Encounter Details Date Type Department Care Team (Late st Contact Info) Description 02/26/2020 Lab Requisition [facility] [address] [facility] [place] [place] [phone] Darrius Miramontes MD [address] [place] [address] Social History Tobacco Use Types Packs/Day Years [...] Group - Geriatrics [address], [facility] [address] [place] [address] Sharita Norman MD [address] [place] [address] documented as of this encounter Procedures Procedure Name Priority Date/Time Associated Diagnosis Comments DERMATOPATHOLOGY Routine 02/25/2020 12:0 0 AM CDT documented in this encounter Results * DERMATOPATHOLOGY (02/25/2020 12:00 AM CDT) Case Report Dermatopathology Report ? Case: [id number] ? Authorizing Provider: ??Darrius Miramontes MD ?Collected: ? 02/25/2020 12:00 AM ? Ordering Location: ? [facility] ?Received: ?02/26/2020 01:10 PM ? Pathologist: ? Madeline Olivas MD ? Specimen: ?Skin, right cheek ? 0 3:49 PM CDT DERMATOPATHOLOGY LABORATORY Final Diagnosis Specimen A. SKIN, right cheek: ACTINIC KERATOSIS, LICHENOID (L57.0) 0 3:49 PM CDT DERMATOPATHOLOGY LABORATORY Clinical History R/O Gan's vs BCC. 0 3:49 PM CDT DERMATOPATHOLOGY LABORATORY Gross Description Specimen A: Received is one formalin filled container labeled with the patient's name and designated right cheek. The specimen consists of a shave biopsy measuring [id number]. Jar 0. 0 3:49 PM CDT DERMATOPATHOLOGY LABORATORY Microscopic Description Specimen A. SKIN, right cheek: There is focal parakeratosis. The lower half of the epidermis shows disorderly maturation of keratinocytes with nuclear pleomorphism. The dermis shows a band-like, chronic inflammatory infiltrate with occasional apoptotic keratinocytes and some basal vacuolar alteration. 0 3:49 PM CDT DERMATOPATHOLOGY LABORATORY Disclaimer An external and internal positive and negative controls are appropriate for the histochemical, immunohistochemical and immunofluorescence stain(s) in this case (if any), except where stated explicitly. The performance characteristics of the stain(s) cited in this report were developed and its performance characteristic determined by the Dermatopathology Laboratory at [facility], directed by Dr. Chance Olivas. These tests need not be, and therefore are not, approved by the [place] Food and Drug Administration. The tests are used for clinical purposes. Billing Codes Specimen Charges Stain Charges 73933 1 0 3:49 PM CDT DERMATOPATHOLOGY LABORATORY Embedded Images 0 3:49 PM CDT DERMATOPATHOLOGY LABORATORY Pathology/Cytolog y TISSUE SPECIMEN FROM SKIN / Unknown 02/25/2020 02/26/2020 1:10 PM CDT Darrius Miramontes MD LAB - PATHOLOGY/CYTO LOGY ORDERABLES Performing Organization Address [facility] Co de Phone Number DERMATOPATHOLOGY LABORATORY [facility] - Department of Dermatology [facility]/[address] [phone] documented in this encounter Visit Diagnoses Not on filedocumented in this encounter Care Teams Warehouse Supervisor 3Rd Shift Relationship Specialty Start Date End Date Mitch Whittaker MD [address] [place] [address] PCP - General 08/24/10 02/18/24 Jj Schneider DO [address] [address] PCP - General Internal Medicine 02/19/24 08/29/24 Sharita Norman MD [address] [place] [address] PCP - General Internal Medicine Geriatric Medicine 08/30/24 documented as of this encounter
--- OUTSIDE RECORDS SUMMARY | 2024-10-31 04:11 | XMS_ITS | Referral Summary ---
Author Organization [facility] Address [address] [facility] [place] [address] Care Team Providers Care Business Systems Analyst Name Role Phone Sharita Norman MD Primary Care Provider Source Comments [facility],non-owned Affiliates and Associated Physician Practices is amultiple site organization consisting of ambulatory clinics and hospital sitesin [place], [place], [place] and [place]. This disclosure is being madepursuant to the Care Everywhere program and may not contain all information available regarding this patient. Last updated 18.[facility] Encounters Date Type Department Care Team Description 10/04/2024 Travel 10/04/2024 11:00 AM RETAIL BANKER Office Visit [facility] [address], [facility] [address] [place] [phone] Sharita Noramn MD Severe Alzheimer's dementia, unspecified timing of dementia onset, unspecified whether behavioral, psychotic, or mood disturbance or anxiety (HCC) (Primary Dx); Primary hypertension; Sensorineural deafness; Weight loss; Caregiver burden; Concern about end of life from Last 3 Months Allergies Active Allergy Reactions Criticality Noted Date Comments Adhesive Sensitivity Other 10/04/2024 Codeine Nausea and/or Vomiting,Other Low 018 Medications * Be aware that medications may not be up to date on this document. Alwaysverify current medications with the patient. Medication Sig Dispensed Refills Start Date End Date Status albuterol HFA (Proventil; Ventolin; Proair) 108 (90 Base) MCG/ACT inhaler 08/14/2023 Active diclofenac sodium (Voltaren) 1 % gel 04/20/2024 Active levothyroxine (Synthroid) 50 MCG tablet 04/20/2024 Active megestrol (Megace) 40 MG tablet 04/18/2024 Active sertraline (Zoloft) 25 MG tablet 09/25/2023 Active sertraline (Zoloft) 50 MG tablet 04/20/2024 Active acetaminophen (Tylenol) 325 MG tablet Take 2 (two) tablets by mouth 3 times daily Maximum allowable Acetaminophen amount = 4 Grams (4000 mg) / 24 hours. 180 tablet 5 10/04/2024 Active traZODone (Desyrel) 50 MG tablet Take 1 (one) tablet by mouth nightly as needed (Agitation/anxiety ) 30 tablet 3 10/04/2024 Active lidocaine (Aspercreme Lidocaine) 4 % patch Apply 2 (two) patches to skin once daily Apply patch to both knees and remove after 12 hours. May reapply a new patch 12 hours later. 60 patch 3 10/04/2024 Active furosemide (Lasix) 20 MG tablet Take 1 (one) tablet by mouth once daily 30 tablet 3 10/04/2024 Active acetaminophen (Tylenol) 325 MG tablet 2 tablets Orally every 6 hours for 30 days 02/15/2024 4 Discontinue d(Reorder) Multiple Vitamins-Mineral s (CertaVite Senior) TABS 04/20/2024 4 Discontinue d(Tx Complete) [place]-3 Fatty Acids (GNP Fish Oil Max St) 1200 MG CPDR 04/20/2024 4 Discontinue d(Tx Complete) furosemide (Lasix) 20 MG tablet 1 tablet Orally daily at noon for 3 days 02/22/2024 4 Discontinue d(Clinical Decision) losartan (Cozaar) 50 MG tablet 04/20/2024 4 Discontinue d(Clinical Decision) fish oil/omega-3 fatty acids (Promega;Cardi-O kinjal 3) 1000 MG capsule Take by mouth once daily 4 Discontinue d(Tx Complete) Pyridoxine HCl 100 MG Take 0.5 (one-half) tablet by mouth once daily 4 Discontinue d(Tx Complete) Active Problems Problem Noted Date Diagnosed Date Acquired hypothyroidism 10/04/2024 Chronic congestive heart failure 10/04/2024 Dementia in other diseases c lassified elsewhere, mild, without behavioral disturbance, psychotic disturbance, mood disturbance, and anxiety 10/04/2024 Essential hypertension 10/04/2024 Mild depression 10/04/2024 Other amyloidosis 08/21/2018 Resolved Problems Problem Noted Date Diagnosed Date Resolved Date Vitamin D deficiency 10/04/2024 024 Inflammation of left sacroiliac joint 11/05/2019 10/04/2024 Postlaminectomy syndrome, lumbar region 11/05/2019 10/04/2024 Immunizations Name Administration Dates Next Due Covid Youtuo primary Monoval ent 12+ yr 0.3ml 12/01/2021 Covid Pfizer primary monoval ent 12+ yr 0.3mL Purple cap 12/29/2020,12/08/2020 FLU VACCINE TRI IIV3 SPLIT I M (FLUVIRIN) 08/03/2018 INFLUENZA VACCINE 08/13/2014,08/05/2013,07/09/20 12 INFLUENZA VACCINE, ADJUVANTE D, QUADR. (FLUAD QUADRIVALENT; 65Y+) (AIIV4) 07/11/2023 INFLUENZA VACCINE, HIGH-DOSE , QUADR. (FLUZONE HIGH-DOSE QUADRIVALENT; 65Y+), 0.7 ML (HD-IIV4) 07/30/2024,06/08/2022,06/29/2021,2019 INFLUENZA VACCINE, HIGH-DOSE , TRIV. (FLUZONE HIGH-DOSE TRIVALENT; 65Y+) (HD-IIV3) 08/10/2017,07/11/2016 PNEUMOCOCCAL PPV VACCINE 08/17/2018 Pneumococcal Pcv13 Conj 08/10/2017 TDAP, HISTORIC VACCINE 06/26/2016 Social History Tobacco Use Types Packs/Day Years Used Date Smoking Tobacco: Never Assessed Tobacco Cessation:Counseling Given: No PHQ-2 Answer Date Recorded Patient Health Questionnaire-2 Score 4 05/17/2024 Sex and Gender Information Value Date Recorded Sex Assigned at Not on file Gender Identity Not on file Sexual Orientation Not on file Last Filed Vital Signs Vital Sign Reading Time Taken Comments Blood Pressure 123/60 10/04/2024 11:11 AM RETAIL BANKER Pulse 93 10/04/2024 11:11 AM RETAIL BANKER Temperature 36.2 ??C (97.2 ??F) 05/17/2024 10:58 AM C DT Respiratory Rate 16 05/17/2024 10:58 AM CDT Oxygen Saturation 96% 10/04/2024 11:11 AM RETAIL BANKER Inhaled Oxygen Concentration - - Weight 52.2 kg (115 lb) 10/04/2024 11:11 AM RETAIL BANKER Height 162.6 cm (5' 4 ) 05/17/2024 10:58 AM CDT Body Mass Index 19.74 05/17/2024 10:58 AM CDT Plan of Treatment Upcoming Encounters Date Type Department Care Team (Late st Contact Info) Description 01/17/2025 11:00 AM CDT Office Visit [facility] [address], [facility] [address] [place] [phone] Sharita Norman MD [address] [place] [address] Care Teams Business Systems Analyst Relationship Specialty Start Date End Date Sharita Norman MD [address] [place] [address] PCP - General Internal Medicine Geriatric Medicine 08/30/24
--- OUTSIDE RECORDS SUMMARY | 2024-10-31 04:11 | XMS_ITS | Encounter Summary ---
Author Organization [facility] Address [address] [facility] [place] [address] Care Team Providers Care Mechanical Design Engineer Products Name Role Phone Mitch Whittaker MD Primary Care Provider [phone] Jj Schneider DO Primary Care Provider [phone] Sharita Norman MD Primary Care Provider Encounter Details Date Type Department Care Team (Late st Contact Info) Description 07/17/2019 Lab Requisition [facility] Care Pathology Lab [address] [place] [address] Landry Morfin MD [address] [address] Social History Tobacco Use Types [...] Group - Geriatrics [address], [facility] [address] [place] [address] Sharita Norman MD [address] [place] [address] documented as of this encounter Visit Diagnoses Not on filedocumented in this encounter Care Teams Mechanical Design Engineer Products Relationship Specialty Start Date End Date Mitch Whittaker MD [address] [place] [address] PCP - General 08/24/10 02/18/24 Jj Schneider DO [address] [place] [address] PCP - General Internal Medicine 02/19/24 08/29/24 Sharita Norman MD [address] [place] [address] PCP - General Internal Medicine Geriatric Medicine 08/30/24 documented as of this encounter
--- OUTSIDE RECORDS SUMMARY | 2024-10-31 04:11 | XMS_ITS | Clinical Summary ---
Author Organization [facility] Address [address] [place] [address] Care Team Providers Care Link Trainer Maintenance Man Name Role Phone Sharita Norman MD Primary Care Provider Source Comments [facility],non-owned Affiliates and Associated Physician Practices is amultiple site organization consisting of ambulatory clinics and hospital sitesin [place], [place], [place] and [place]. This disclosure is being madepursuant to the Care Everywhere program and may not contain all information available regarding this patient. Last updated 18.[facility] Allergies Active Allergy Reactions Criticality Noted Date [...] Senior) TABS 04/20/2024 4 Discontinue d(Tx Complete) [place]-3 Fatty Acids (GNP Fish Oil Max St) [...] 10/04/2024 Postlaminectomy syndrome, lumbar region 11/05/2019 10/04/2024 Encounters Date Type Department Care Team Description 10/04/2024 11:00 AM OSTEOPATHIC RESIDENT Office Visit [facility] Ger[facility] [address], [facility] [address] [place] [address] Sharita Norman MD Severe Alzheimer's dementia, unspecified timing of dementia onset, unspecified whether behavioral, psychotic, or mood disturbance or anxiety (HCC) (Primary Dx); Primary hypertension; Sensorineural deafness; Weight loss; Caregiver burden; Concern about end of life 10/04/2024 Travel from Last 3 Months Immunizations Name Administration Dates Next Due Covid [employer] primary Monoval ent 12+ yr 0.3ml 12/01/2021 [...] Comments Blood Pressure 123/60 10/04/2024 11:11 AM OSTEOPATHIC RESIDENT Pulse 93 10/04/2024 11:11 AM OSTEOPATHIC RESIDENT Temperature 36.2 ??C (97.2 ??F) 05/17/2024 10:58 AM C DT Respiratory Rate 16 05/17/2024 10:58 AM CDT Oxygen Saturation 96% 10/04/2024 11:11 AM OSTEOPATHIC RESIDENT Inhaled Oxygen Concentration - - Weight 52.2 kg (115 lb) 10/04/2024 11:11 AM OSTEOPATHIC RESIDENT Height 162.6 cm (5' 4 ) 05/17/2024 10:58 AM CDT Body Mass Index 19.74 05/17/2024 10:58 AM CDT Plan of Treatment Upcoming Encounters Date Type Department Care Team (Late st Contact Info) Description 01/17/2025 11:00 AM CDT Office Visit [facility] [address], [address] [phone] Sharita Norman MD [address] [place] [address] Health Maintenance Due Date Last Done Comments BONE DENSITY TESTING 1934 ZOSTER VACCINE (1 of 2) 1984 Respiratory Syncytial Virus (RSV) Vaccine Pt: or over 60 yrs (1 - 1-dose 75+ series) 2009 COVID-19 VACCINE ( season) 2024 12/01/2021, 12/29/2020, 12/08/2020 DEPRESSION SCREENING 10/09/2024 05/17/2024 MEDICARE AWV ? CALENDAR YEAR 2024 DTAP/TDAP/TD VACCINES (2 - Td or Tdap) 06/26/2026 06/26/2016 PNEUMOCOCCAL VACCINE 50+ Completed 08/17/2018, 11/2016 INFLUENZA VACCINE Completed 07/30/2024, , 06/08/2022, Additional history exists HEPATITIS B VACCINE Aged Out No longe r eligible based on patient's age to complete this topic HIB VACCINE Aged Out No longer eligi ble based on patient's age to complete this topic HPV VACCINE Aged Out No longer eligi ble based on patient's age to complete this topic MENINGOCOCCAL (Group B) VACCINE Aged Out No longer eligible based on patient's age to complete this topic MENINGOCOCCAL VACCINE Aged Out No anastasia brandi eligible based on patient's age to complete this topic Care Teams Link Trainer Maintenance Man Relationship Specialty Start Date End Date Sharita Norman MD [address] [place] [address] PCP - General Internal Medicine Geriatric Medicine 08/30/24
--- OUTSIDE RECORDS SUMMARY | 2024-10-31 04:11 | XMS_ITS | Continuity of Care Document ---
Author Organization [facility] Address [address] [place] [address] [address] [place] [address] Phone Care Team Providers Care Getter Welder Name Role Phone Mor Badillo Unavailable Unavailable Procedures Procedure Date Office/outpatient Visit, [facility] Advance Directives Directive Yes / No Effective Date File Name No Information Encounters Encounter Description Practice Location Reason(s) For Visit Diagnoses Date Provider Providers Copied on Encounter Office/outpat ient Visit, [facility], [id number] [place] [address] [address], [place], [place], [id number], [place] tel:[phone] [facility] No Information 0 Justino Juares. [address] , [address], [place], [address], [place]. tel:[phone] Family History Family Member Type Diagnosis Age At Onset No Information Payers Payer name Insurance type Covered democrat ID Authoriza tion(s) Medicare [facility] [id number] Social History Type Description Quantity Date Captured Comments Sex Female Smoking Status No Information Chief Complaint And Reason For Visit No Information Reason For Referral Reason For Referral No Information History Of Present Illness Encounter Date Complaint History Of Prese nt Illness No Information Functional Status Date Functional Assessmen t No Information Instructions Date Instruction Additional Infor mation No Information Assessments Type Assessment Date No Information Patient Care Teams Name Effective Dates (start - stop) Status Members No Information
--- OUTSIDE RECORDS SUMMARY | 2024-10-31 04:11 | XMS_ITS | Encounter Summary ---
Author Organization [facility] Address [address] [place] [address] Care Team Providers Care I&C Tech Name Role Phone Mitch Whittaker MD Primary Care Provider [phone] Jj Schneider DO Primary Care Provider [phone] Sharita Norman MD Primary Care Provider Encounter Details Date Type Department Care Team (Late st Contact Info) Description 09/06/2018 Lab Requisition [facility] Care Pathology Lab [address] [place] [address] Landry Morfin MD [address] [address] Social History Tobacco Use Types [...] Group - Geriatrics [address], [facility] [address] [place] [address] Sharita Norman MD [address] [place] [address] documented as of this encounter Procedures Procedure Name Priority Date/Time Associated Diagnosis Comments BONE MARROW BIOPSY (STL) Routine 09/05/2018 11:43 AM [employer] documented in this encounter Results * BONE MARROW BIOPSY (STL) (09/05/2018 11:43 AM [employer]) Case Report Bone Marrow Patholog y Report ?Case: [id number] ? Authorizing Provider: ??Landry Morfin MD ?Collected: ? 09/05/2018 11:43 AM ? Pathologist: ? Malina Thakur MD ?? Received: ?09/06/2018 11:44 AM ? Specimens: ?? A) - Bone Marrow Core, [id number] ? B) - Bone Marrow Clot, [id number] ? C) - Blood Peripheral, [id number] ? D) - Bone Marrow Aspirate, [id number] ? 09/07/2018 2:[address] [facility] Final Diagnosis Bone marrow, aspirate, clot section, and core biopsy: - Plasma cell dyscrasia. - Normocellular marrow with maturing trilineage hematopoiesis. - See description. Peripheral blood smear: - Normal white blood cell count with absolute eosinophilia. - Macrocytic anemia. - See description. 09/07/2018 2:[address] [facility] Comment Overall, the bone marrow specimen is normocellular for age with maturing trilineage hematopoiesis and shows low-level involvement by a plasma cell dyscrasia which is best demonstrated by flow cytometry ([id number]). No amyloid deposition is seen. In the setting of additional clinical/laboratory/r adiographic findings such as a serum paraprotein, multiple lytic bone lesions, extramedullary plasmacytoma, or end organ damage, these findings could be consistent with plasma cell myeloma. Correlation with clinical findings and relevant cytogenetic/molecular testing is required. KR/NW 09/07/2018 2:[address] [facility] Peripheral Smear Description Outside CBC results: WBC = 5.1 K/uL RBC = 3.37 M/uL Plt = 187 K/uL Hgb = 11.8 g/dL Hct = 34.7% MCV = 103.0 fL MCH = 35.0 pg MCHC = 34.0 g/dL RDW = 12.6% Manual Differential Count (100 cells): 45% neutrophils, 31% lymphocytes, 7% monocytes, 16% eosinophils, and 1% basophils. Leukocyte number: normal. Granulocyte morphology: normal. Lymphocyte morphology: Occasional larger, reactive-appearing forms; no circulating plasma cells seen. Erythrocyte number: decreased. Erythrocyte morphology: macrocytic; no rouleaux formation seen. Anisopoikilocytosis: not significant. Polychromasia: not significant. Platelet number: normal. Platelet morphology: normal. 09/07/2018 2:[address] [facility] Bone Marrow Aspirate Due to the aspicular, paucicellular, and hemodilute nature of the specimen, a differential count is not performed. Please note that due to the lack of spicules, the morphologic assessment is limited. Scanning shows scattered hematopoietic elements. An iron stain reviewed on the aspirate smear, with appropriately reactive control, shows decreased stainable storage and sideroblastic iron, but is suboptimal due to a lack of spicules and low number of erythroid progenitor cells present. 09/07/2018 2:[address] [facility] Bone Marrow Core Biopsy and Clot Section Description Specimen quality: The decalcified bone marrow core biopsy is adequate for evaluation. Cellularity: Normocellular; estimated 20-30%. Trilineage Hematopoiesis: Present. Myeloid to Erythroid ratio: normal. Myeloid maturation and localization: normal. Erythroid maturation and localization: normal. Megakaryocyte number: normal. Megakaryocyte distribution: normal. Lymphoid aggregates: Few small interstitial lymphoid aggregates seen. Bone trabeculae: normal. Blood vessels: normal. Clot section marrow particles: Scant. Clot section morphology: similar to core biopsy. An iron stain submitted for review on the clot section shows decreased iron, but only scant marrow particles are present. Immunohistochemical stains for CD20, CD3, CD138, kappa, and lambda, and a special Congo red stain, are performed on the core biopsy in the [facility] Department of Pathology, with appropriately reactive controls, and demonstrate the following: CD20 and CD3 highlight dispersed interstitial B- and T-cells, as well as demonstrate appropriately admixed populations of B- and T-cells within the lymphoid aggregates. CD138 highlights a mildly increased population of plasma cells comprising approximately 5-10% of the marrow cellularity; most are singly dispersed, with few small perivascular clusters seen. [place] and lambda each highlight proportions of the plasma cells, with a slight predominance of lambda-expressing cells seen. The Congo red stain does not demonstrate amyloid deposition in the vessels present. 09/07/2018 2:[address] [facility] Flow Cytometry Summary Concurrent bone marrow flow cytometry ([id number]) shows a hemodilute specimen with involvement by a plasma cell dyscrasia (0.2% of all flow events). 09/07/2018 2:[address] [facility] Clinical History 09/07/2018 2:[address] [facility] Materials Received Received are 16 slides and 2 blocks labeled as [id number] along with the outside pathology report. [place] [address]. All materials are returned to the referring institution, along with a copy of our final report. 09/07/2018 2:[address] [facility] Disclaimer The performance characteristics of all immunohistochemical and indirect immunofluorescence stains (if any) cited in this report were determined by the Histopathology Laboratory of [facility]. Some of these tests were developed by [...] and interpreted by the attending (teaching) pathologist. 09/07/2018 2:[address] [facility] Embedded Images 09/07/2018 2:[address] [facility] Pathology/Cytology SPECIMEN FROM BONE MARROW OBTAINED BY ASPIRATION / Unknown 09/05/2018 11:43 AM [employer] 09/06/2018 11:44 AM [employer] Miscellaneous samples (specimen) BONE MARROW CLOT SPECIMEN / Unknown 09/05/2018 11:43 AM [employer] 09/06/2018 11:44 AM [employer] Miscellaneous samples (specimen) PERIPHERAL BLOOD / Unknown 09/05/2018 11:43 AM [employer] 09/06/2018 11:44 AM [employer] Miscellaneous samples (specimen) SPECIMEN FROM BONE MARROW OBTAINED BY ASPIRATION / Unknown 09/05/2018 11:43 AM [employer] 09/06/2018 11:44 AM [employer] Landry Morfin MD LAB - PATHOLOGY/CYTO LOGY ORDERABLES Performing Organization Address [facility] Co de Phone Number [facility] PATHOLOGY LAB [address] [phone] documented in this encounter Visit Diagnoses Not on filedocumented in this encounter Care Teams I&C Tech Relationship Specialty Start Date End Date Mitch Whittaker MD [address] [place] [address] PCP - General 08/24/10 02/18/24 Jj Schneider DO [address] [facility] [place] [address] PCP - General Internal Medicine 02/19/24 08/29/24 Sharita Norman MD [address] [place] [address] PCP - General Internal Medicine Geriatric Medicine 08/30/24 documented as of this encounter
--- OUTSIDE RECORDS SUMMARY | 2024-10-31 04:11 | XMS_ITS | Encounter Summary ---
Author Organization [facility] Address [address] [facility] [place] [address] Care Team Providers Care Ad Operations Specialist Name Role Phone Mitch Whittaker MD Primary Care Provider [phone] Jj Schneider DO Primary Care Provider [phone] Sharita Norman MD Primary Care Provider Encounter Details Date Type Department Care Team (Late st Contact Info) Description 09/04/2018 Lab Requisition [facility] Care Pathology Lab [address] [place] [address] Landry Morfin MD [address] [address] Other amyloidosis (HCC) Social History Tobacco Use Types Packs/Day Years Used Date Smoking Tobacco: Never Assessed Sex and Gender Information Value Date Recorded Sex Assigned at Not on file Gender Identity Not on file Sexual Orientation Not on file documented as of this encounter Plan of Treatment Upcoming Encounters Date Type Department Care Team (Late Contact Info) Description 01/17/2025 11:00 AM CDT Office Visit [facility] - Geriatrics [address], [facility] [address] [place] [address] Sharita Norman MD [address] [place] [address] documented as of this encounter Procedures Procedure Name Priority Date/Time Associated Diagnosis Comments FLOW CYTOMETRY BONE MARROW Routine 09/04/2018 9:30 AM VASC TECH Other amyloidosis documented in this encounter Results * FLOW CYTOMETRY BONE MARROW (09/04/2018 9:30 AM [facility] [[email or web address] Case Report Flow Cytometry ?Case: [id number] ? Authorizing Provider: ??Landry Morfin MD ?Collected: ? 09/04/2018 09:30 AM ? Pathologist: ? Malina Thakur MD ?? Received: ?09/04/2018 01:32 PM ? Specimen: ?Bone Marrow ? 09/05/2018 9:25 AM [facility] Final Diagnosis Bone marrow, flow cytometric immunophenotypic analysis: - Hemodilute specimen. - Plasma cell dyscrasia (0.2% of events analyzed). - No evidence of non-Hodgkin lymphoma or high-grade myeloid neoplasm. - See interpretation. 09/05/2018 9:25 AM [facility] Flow Cytometry Interpretation The bone marrow specimen is hemodilute and has a viability of 97%. Within the lymphocyte gate, there is no monoclonal B-cell population identified (kappa: lambda ratio = 1.3:1). There is no co-expression of CD5 or CD10 on the B-cells. There is no expanded T-cell population seen, and no definitive blast population is identified. Within the plasma cell gate, there is a minute abnormal plasma cell population identified expressing CD38, CD138, CD20 (dim), variable CD45, CD117 (partial), with cytoplasmic lambda light chain restriction. This population lacks significant co-expression of CD10, CD19, and CD56. This population is estimated to comprise 0.2% of all events analyzed. A bone marrow aspirate smear prepared from the flow cytometry specimen is reviewed for quality supervisor purposes. The bone marrow specimen is hemodilute but shows involvement by a plasma cell dyscrasia (0.2% of all flow events). Correlation with clinical findings, the concurrent bone marrow core biopsy, and relevant cytogenetic/molecu lar studies is required. KR/NW 09/05/2018 9:25 AM [facility] Flow Cytometry Results Differential Result Comment Flow Cell Count /uL [id number] Total Viability % 97.0 Lymphocytes % 31 Dim CD45 Region % 0 Monocytes % 2 Granulocytes % 65 09/05/2018 9:25 AM [facility] Reason for test Other amyloidosis 277.39 09/05/2018 9:25 AM [facility] Client Specimen ID # [id number] 09/05/2018 9:25 AM [facility] Number of markers 14 were performed. A Flow CD10 A Flow CD13 A Flow CD20 A Flow CD117 A FLOW CD138 A Flow CD5 A Flow CD19 A Flow CD33 A Flow CD34 A Flow CD45 A Flow CD56 A [place]+CD19+ A Lambda+CD19+ 09/05/2018 9:25 AM [facility] Disclaimer Test performed at [facility], [address] [place] [address], [address]. *The established laboratory minimum viability is 70%. Values below the minimum may result in the failure to find an abnormal population of cells. This test was developed and its performance characteristics determined by the Flow Cytometry Laboratory. It has not been cleared by the [place] Food and Drug Administration (FDA). The FDA has determined that such clearance or approval is not necessary. This test is used for clinical purposes. It should not be regarded as investigational or for research. This laboratory is regulated under the Clinical Laboratory Improvement Amendments of 1998 (CLIA) as a qualified to perform high complexity clinical testing. 09/05/2018 9:25 AM [facility] Embedded Images 8 9:25 AM VASC TECH [facility] Pathology/Cytolo gy BONE MARROW SPECIMEN / Unknown 09/04/2018 9:30 AM VASC TECH 09/04/2018 1:32 PM VASC TECH Landry Morfin MD LAB - PATHOLOGY/CYTO LOGY ORDERABLES [facility] [address] [facility] [place] [address], [facility] [phone] documented in this encounter Visit Diagnoses Diagnosis Other amyloidosis (HCC) Other amyloidosis documented in this encounter Care Teams Ad Operations Specialist Relationship Specialty Start Date End Date Mitch Whittaker MD [address] [place] [address] PCP - General 08/24/10 02/18/24 Jj Schneider DO [address] [facility] [address] [place] [address] PCP - General Internal Medicine 02/19/24 08/29/24 Sharita Norman MD [address] [place] [address] PCP - General Internal Medicine Geriatric Medicine 08/30/24 documented as of this encounter
--- OUTSIDE RECORDS SUMMARY | 2024-10-31 04:11 | XMS_ITS | Patient Health Summary ---
Author Organization [facility] abeo Address [address] [place] [address] Care Team Providers Care Tree Deadener Name Role Phone Sharita Norman MD Primary Care Provider Note from [facility],non-owned Affiliates and Associated Physician Practices is amultiple site organization consisting of ambulatory clinics and hospital sitesin [place], [place], [place] and [place]. This disclosure is being madepursuant to the Care Everywhere program and may not contain all information available regarding this patient. Last updated 18.[facility] Allergies * Adhesive Sensitivity(Other) * Codeine(Nausea and/or Vomiting,Other) -Low Criticality Medications * Be aware that medications may not be up to date on this document. Alwaysverify current medications with the patient. * albuterol HFA (Proventil; Ventolin; Proair) 108 (90 Base) MCG/ACT inhaler (Started 08/14/2023) * diclofenac sodium (Voltaren) 1 % gel(Started 04/20/2024) * levothyroxine (Synthroid) 50 MCG tablet(Started 04/20/2024) * megestrol (Megace) 40 MG tablet(Started 04/18/2024) * sertraline (Zoloft) 25 MG tablet(Started 09/25/2023) * sertraline (Zoloft) 50 MG tablet(Started 04/20/2024) * acetaminophen (Tylenol) 325 MG tablet(Started 10/04/2024) Take 2 (two) tablets by mouth 3 times daily Maximum allowable Acetaminophen amount = 4 Grams (4000 mg) / 24 hours. 5 refills by 10/04/2025 * traZODone (Desyrel) 50 MG tablet(Started 10/04/2024) Take 1 (one) tablet by mouth nightly as needed (Agitation/anxiety) 3 refills by 10/04/2025 * lidocaine (Aspercreme Lidocaine) 4 % patch(Started 10/04/2024) Apply 2 (two) patches to skin once daily Apply patch to both knees and remove after 12 hours. May reapply a new patch 12 hours later. 3 refills by 10/04/2025 * furosemide (Lasix) 20 MG tablet(Started 10/04/2024) Take 1 (one) tablet by mouth once daily 3 refills by 10/04/2025 Ended Medications* acetaminophen (Tylenol) 325 MG tablet(Started 02/15/2024) (Discontinued) 2 tablets Orally every 6 hours for 30 days * Multiple Vitamins-Minerals (CertaVite Senior) TABS(Started 04/20/2024) (Discontinued) * Milton-3 Fatty Acids (GNP Fish Oil Max St) 1200 MG CPDR(Started 04/20/2024) (Discontinued) * furosemide (Lasix) 20 MG tablet(Started 02/22/2024)(Discontinued) 1 tablet Orally daily at noon for 3 days * losartan (Cozaar) 50 MG tablet(Started 04/20/2024)(Discontinued) * fish oil/omega-3 fatty acids (Promega;Cardi-Milton 3) 1000 MG capsule (Discontinued) Take by mouth once daily * Pyridoxine HCl 100 MG(Discontinued) Take 0.5 (one-half) tablet by mouth once daily Active Problems Problem Noted Date Diagnosed Date [...] Postlaminectomy syndrome, lumbar region 11/05/2019 10/04/2024 Immunizations * Covid Pfizer primary Monovalent 12+ yr 0.3ml(Given 12/01/2021) * Covid Pfizer primary monovalent 12+ yr 0.3mL Purple cap(Given 12/29/2020, 12/08/2020) * FLU VACCINE TRI IIV3 SPLIT IM (FLUVIRIN)(Given 08/03/2018) * INFLUENZA VACCINE(Given 08/13/2014, 08/05/2013, 07/09/2012) * INFLUENZA VACCINE, ADJUVANTED, QUADR. (FLUAD QUADRIVALENT; 65Y+) (AIIV4)(Given 07/11/2023) * INFLUENZA VACCINE, HIGH-DOSE, QUADR. (FLUZONE HIGH-DOSE QUADRIVALENT; 65Y+), 0.7 ML (HD-IIV4)(Given 07/30/2024, 06/08/2022, 06/29/2021, 07/09/2020) * INFLUENZA VACCINE, HIGH-DOSE, TRIV. (FLUZONE HIGH-DOSE TRIVALENT; 65Y+) (HD-IIV3)(Given 08/10/2017, 07/11/2016) * PNEUMOCOCCAL PPV VACCINE(Given 08/17/2018) * Pneumococcal Pcv13 Conj(Given 08/10/2017) * TDAP, HISTORIC VACCINE(Given 06/26/2016) Social History Tobacco Use Types Packs/Day Years [...] Comments Blood Pressure 123/60 10/04/2024 11:11 AM CYBER WORKFORCE DEVELOPER AND MANAGER Pulse 93 10/04/2024 11:11 AM CYBER WORKFORCE DEVELOPER AND MANAGER Temperature 36.2 ??C (97.2 ??F) 05/17/2024 10:58 AM C DT Respiratory Rate 16 05/17/2024 10:58 AM CDT Oxygen Saturation 96% 10/04/2024 11:11 AM CYBER WORKFORCE DEVELOPER AND MANAGER Inhaled Oxygen Concentration - - Weight 52.2 kg (115 lb) 10/04/2024 11:11 AM CYBER WORKFORCE DEVELOPER AND MANAGER Height 162.6 cm (5' 4 ) 05/17/2024 10:58 AM CDT Body Mass Index 19.74 05/17/2024 10:58 AM CDT Procedures * CBC W AUTO DIFFERENTIAL(Performed 05/17/2024) * TSH+FREE T4 PANEL(Performed 05/17/2024) Performed for Severe Alzheimer's dementia, unspecified timing of dementia onset, unspecified whether behavioral, psychotic, or mood disturbance or anxiety (HCC) * VITAMIN B12 FOLATE PANEL(Performed 05/17/2024) Performed for Severe Alzheimer's dementia, unspecified timing of dementia onset, unspecified whether behavioral, psychotic, or mood disturbance or anxiety (HCC) * COMPREHENSIVE METABOLIC PANEL(Performed 05/17/2024) Performed for Severe Alzheimer's dementia, unspecified timing of dementia onset, unspecified whether behavioral, psychotic, or mood disturbance or anxiety (HCC) * DERMATOPATHOLOGY(Performed 02/25/2020) * BONE MARROW BIOPSY (STL)(Performed 03/11/2019) * FLOW CYTOMETRY BONE MARROW(Performed 03/11/2019) Performed for Other amyloidosis * BONE MARROW BIOPSY (STL)(Performed 09/05/2018) * FLOW CYTOMETRY BONE MARROW(Performed 09/04/2018) Performed for Other amyloidosis * DERMATOPATHOLOGY(Performed 09/12/2017) * DERMATOPATHOLOGY(Performed 04/05/2017) * DERMATOPATHOLOGY(Performed 04/05/2017) * DERMATOPATHOLOGY(Performed 08/22/2016) * DERMATOPATHOLOGY(Performed 07/22/2014) Results * TSH+FREE T4 PANEL (05/17/2024 1:31 PM CDT) TSH 3.29 0.40 - 4.50 mIU/L [facility] T4 Free 1.1 0.8 - 1.8 ng/dL [facility] Comment: Test Performed at: [facility] [address] ??[phone] DEYVI BAIN MD Blood BLOOD SPECIMEN / Unknown 05/17/2024 1:31 PM CDT 05/17/2024 1:32 PM CDT Sharita Norman MD LAB - CHEMISTR Y ORDERABLES [facility] [address] [place] [address] * (ABNORMAL) CBC WITH DIFFERENTIAL (05/17/2024 1:31 PM CDT) Pathologist [facility] White Blood Cell Count 8.0 3.8 - 10.8 Thousand/ uL [facility] RBC 3.34(L) 3.80 - 5.10 Million/u L [facility] Hemoglobin 11.4(L) 11.7 - 15.5 g/dL [facility] Hematocrit 35.5 35.0 - 45.0 % [facility] MCV 106.3(H) 80.0 - 100.0 fL [facility] MCH 34.1(H) 27.0 - 33.0 pg [facility] MCHC 32.1 32.0 - 36.0 g/dL [facility] RDW 11.7 11.0 - 15.0 % [facility] Platelet Count 314 140 - 400 Thousand/ uL [facility] MPV 9.5 7.5 - 12.5 fL [facility] Neutrophil Absolute 4728 1500 - 7800 cells/uL [facility] Lymphocytes Absolute 2464 850 - 3900 cells/uL [facility] Absolute Monocytes 656 200 - 950 cells/uL [facility] Eosinophils Absolute 120 15 - 500 cells/uL [facility] Basophils Absolute 32 0 - 200 cells/uL [facility] Granulocytes % 59.1 % [facility] Lymphocytes % 30.8 % [facility] Monocytes % 8.2 % [facility] Eosinophils % 1.5 % [facility] Basophils % 0.4 % [facility] Comment: Test Performed at: [facility] [address] ??[phone] DEYVI BAIN MD 05/17/2024 1:31 PM CDT 05/17/2024 1:32 PM CDT Sharita Norman MD LAB - HEMATOLO GY ORDERABLES [facility] [address] [place] [address] * (ABNORMAL) COMPREHENSIVE METABOLIC PANEL (05/17/2024 1:31 PM CDT) [facility] Glucose 97 65 - 99 mg/dL [facility] Comment: ? Fasting reference interval BUN 20 7 - 25 mg/dL [facility] Creatinine 0.63 0.60 - 0.95 mg/dL [facility] eGFR by Cystatin C 85 > OR = 60 mL/min/1. 73m2 [facility] BUN/Creatinine Ratio SEE NOTE: 6 - 22 (calc) [facility] Comment: ?? Not Reported: BUN and Creatinine are within ?? reference range. ? Sodium 137 135 - 146 mmol/L [facility] Potassium 4.0 3.5 - 5.3 mmol/L [facility] Chloride 105 98 - 110 mmol/L [facility] CO2 23 20 - 32 mmol/L [facility] Calcium 9.3 8.6 - 10.4 mg/dL [facility] Protein Total 7.1 6.1 - 8.1 g/dL [facility] Albumin 3.4(L) 3.6 - 5.1 g/dL [facility] Globulin Total 3.7 1.9 - 3.7 g/dL (calc) [facility] Albumin/Globulin Ratio 0.9(L) 1.0 - 2.5 (calc) [facility] Bilirubin Total 0.5 0.2 - 1.2 mg/dL [facility] Alkaline Phosphatase 65 37 - 153 U/L [facility] AST 95(H) 10 - 35 U/L [facility] ALT 19 6 - 29 U/L [facility] Comment: Test Performed at: [facility] [address] ??[phone] DEYVI BAIN MD Blood BLOOD SPECIMEN / Unknown 05/17/2024 1:31 PM CDT 05/17/2024 1:32 PM CDT Sharita Norman MD LAB - CHEMISTR Y ORDERABLES [facility] [address] [place] [address] * VITAMIN B12 FOLATE PANEL (05/17/2024 1:31 PM CDT) Vitamin B12 552 200 - 1100 pg/mL [facility] Folate >24.0 ng/mL [facility] Comment: ? Reference Range ? Low: ? <3.4 ? Borderline: ?3.4-5.4 ? Normal: ?>5.4 Test Performed at: [facility] [place] [address] [place], [place] ??[phone] DEYVI BAIN MD Blood BLOOD SPECIMEN / Unknown 05/17/2024 1:31 PM CDT 05/17/2024 1:32 PM CDT Sharita Norman MD LAB - CHEMISTR Y ORDERABLES [facility] [address] [place] [address] * DERMATOPATHOLOGY (02/25/2020 12:00 AM CDT) Only the most recent of6 resultswithin the time period is included. Case Report Dermatopathology Report ? Case: [id number] ? Authorizing Provider: ??Darrius Miramontes MD ?Collected: ? 02/25/2020 12:00 AM ? Ordering Location: ? [facility] Derm[facility] Lab ?Received: ?02/26/2020 01:10 PM [...] specimen consists of a shave biopsy measuring [id number]. Jar 0. 0 3:49 PM CDT DERMATOPATHOLOGY [...] characteristic determined by the Dermatopathology Laboratory at [facility], directed by Dr. Chance Olivas. These tests need not be, and therefore are not, approved by the [place] Food and Drug Administration. The tests are used for clinical purposes. Billing Codes Specimen Charges Stain Charges 50793 1 0 3:49 PM CDT DERMATOPATHOLOGY LABORATORY Embedded Images 0 3:49 PM CDT DERMATOPATHOLOGY LABORATORY Pathology/Cytolog y TISSUE SPECIMEN FROM SKIN / Unknown 02/25/2020 02/26/2020 1:10 PM CDT Darrius Miramontes MD LAB - PATHOLOGY/CYTO LOGY ORDERABLES DERMATOPATHOLOGY LABORATORY [facility] - Department of Dermatology Rn Angiography [place] [address], [facility] [phone] * FLOW CYTOMETRY BONE MARROW (03/11/2019 9:56 AM CDT) Only the most recent of2 resultswithin the time period is included. Case Report Flow Cytometry ?Case: [id number] ? Authorizing Provider: ??Landry Morfin MD ?Collected: ? 03/11/2019 09:56 AM ? Pathologist: ? Malina Thakur MD ?? Received: ?03/11/2019 03:37 PM ? Specimen: ?Bone Marrow ? 03/12/2019 9:02 AM [facility] PATHOLOGY LAB Final Diagnosis Bone marrow, flow cytometric immunophenotypic analysis ([id number]): - Hemodilute specimen. - No evidence of plasma cell dyscrasia, non-Hodgkin lymphoma, or high-grade myeloid neoplasm. - See interpretation. 03/12/2019 9:02 AM [facility] PATHOLOGY [facility] Flow Cytometry Interpretation The bone marrow specimen is hemodilute and has a viability of 96%. The lymphocyte gate shows relative expansion. Within the lymphocyte gate, there is no monoclonal B-cell population identified (kappa: lambda ratio = 1.8:1). There is no co-expression of CD5 or CD10 on the B-cells. The majority of lymphocytes are T-cells. By CD34, 0.1% of all events analyzed are blasts. There is a small polyclonal plasma cell population identified (0.1% of all events) with a kappa: lambda ratio of 1.8:1. A bone marrow aspirate smear prepared from the flow cytometry specimen is reviewed for type disk quality control supervisor purposes. The bone marrow aspirate specimen is hemodilute but shows no evidence of involvement by a plasma cell dyscrasia, non-Hodgkin lymphoma, or a high-grade myeloid neoplasm. Correlation with clinical findings, the concurrent bone marrow core biopsy, and relevant cytogenetic/molecu lar studies is required. KR/NW 03/12/2019 9:02 AM [facility] PATH[facility] Flow Cytometry Results Differential Result Comment Flow Cell Count /uL 32461 Total Viability % 96.0 Lymphocytes % 40 Dim CD45 Region % 1 Monocytes % 5 Granulocytes % 52 03/12/2019 9:02 AM [facility] PATH[facility] Reason for test Other amyloidosis 277.39 03/12/2019 9:02 AM [facility] PATH[facility] Client Specimen ID # [id number] 03/12/2019 9:02 AM [facility] PATH[facility] Number of markers 14 were performed. A Flow CD10 A Flow CD13 A Flow CD20 A Flow CD117 A FLOW CD138 A Flow CD5 A Flow CD19 A Flow CD33 A Flow CD34 A Flow CD45 A Flow CD38 A Flow CD56 A [place]+CD19+ A Lambda+CD19+ 03/12/2019 9:02 AM [facility] PATHOLOG[facility] LAB Disclaimer Test performed at [facility], [address] [place] [address], [address]. *The established laboratory minimum viability is 70%. [...] qualified to perform high complexity clinical testing. 03/12/2019 9:02 AM [facility] PATH[facility] LAB Embedded Images 9:02 AM [facility] PATH[facility] Pathology/Cytolo gy BONE MARROW SPECIMEN / Unknown 03/11/2019 9:56 AM CDT 03/11/2019 3:37 PM CDT Landry Morfin MD LAB - PATHOLOGY/CYTO LOGY ORDERABLES [facility] [address] [facility] [place] [address], [facility] [phone] * BONE MARROW BIOPSY (STL) (03/11/2019 9:56 AM CDT) Only the most recent of2 resultswithin the time period is included. Case Report Bone Marrow Patholog y Report ?Case: [id number] ? Authorizing Provider: ??Landry Morfin MD ?Collected: ? 03/11/2019 09:56 AM ? Pathologist: ? Malina Thakur MD ?? Received: ?03/13/2019 08:13 AM ? Specimens: ?? A) - Bone Marrow Core, [id number] ? B) - Bone Marrow Clot, [id number] ? C) - Blood Peripheral, [id number] ? D) - Bone Marrow Aspirate, [id number] ? 03/13/2019 4:17 PM [facility] PATH[facility] Final Diagnosis Bone marrow, aspirate, clot section, and core biopsy ([id number]): - Hypercellular marrow with maturing trilineage hematopoiesis. - No evidence of plasma cell dyscrasia, lymphoma, or high-grade myeloid neoplasm. - No evidence of amyloid deposition. - See description. Peripheral blood smear: - Macrocytosis. - See description. 03/13/2019 4:17 PM [facility] PATH[facility] Comment Overall, the bone marrow specimen is hypercellular for age with maturing trilineage hematopoiesis and no evidence of a plasma cell dyscrasia, lymphoma, or a high-grade myeloid neoplasm. No amyloid deposition is identified by Congo red staining. Concurrent bone marrow flow cytometry ([id number]) shows a hemodilute specimen with no evidence of involvement by a plasma cell dyscrasia, non-Hodgkin lymphoma, or a high-grade myeloid neoplasm. Correlation with clinical findings and relevant cytogenetic/molecular testing is required. MIHIR/PAMELLA 03/13/2019 4:17 PM [facility] PATH[facility] Peripheral Smear Description CBC Data: [...] normal. Platelet morphology: normal. 03/13/2019 4:17 PM [facility] PATH[facility] Bone Marrow Aspirate Due to [...] erythroid progenitor cells present. 03/13/2019 4:17 PM [facility] PATH[facility] Bone Marrow Core Biopsy and [...] performed on the core biopsy in the [facility] Department of Pathology, with appropriately reactive controls, to further assess for a plasma cell infiltrate given the hemodilute nature of the flow cytometry specimen and demonstrate the following: CD138 highlights a population of plasma cells comprising an estimated 5% of the marrow cellularity with no atypical clusters noted. [place] and lambda each highlight appropriate proportions of the plasma cells, confirming a polyclonal population. The Congo Red stain demonstrates no amyloid deposition with adequate blood vessels present for evaluation. 03/13/2019 4:17 PM [facility] PATH[facility] Flow Cytometry Summary Concurrent bone marrow flow cytometry ([id number]) shows a hemodilute specimen with no evidence of involvement by a plasma cell dyscrasia, non-Hodgkin lymphoma, or a high-grade myeloid neoplasm. 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 03/13/2019 4:17 PM [facility] PATH[facility] Materials Received Received are 15 slides and 2 blocks labeled as [id number] along with the outside pathology report. The materials originate from [place] [id number]. All materials are returned to the referring institution, along with a copy of our final report. 03/13/2019 4:17 PM [facility] PATH[facility] Disclaimer The performance characteristics of all immunohistochemical and indirect immunofluorescence stains (if any) cited in this report were determined by the Histopathology Laboratory of [facility]. Some of these tests were developed by [...] the attending (teaching) pathologist. 03/13/2019 4:17 PM [facility] PATHOLOG[facility] LAB Embedded Images 03/13/2019 4:17 PM T [facility] PATH[facility] LAB Pathology/Cytology SPECIMEN FROM BONE MARROW [...] Morfin MD LAB - PATHOLOGY/CYTO LOGY ORDERABLES [facility] PATH[facility] LAB [address] [place] [address], [facility] [phone] Care Teams Tree Deadener Relationship Specialty Start Date End Date Sharita Norman MD [address] [place] [address] PCP - General Internal Medicine Geriatric Medicine 08/30/24
--- OUTSIDE RECORDS SUMMARY | 2024-10-31 04:11 | XMS_ITS | Patient Health Record ---
Author Organization [facility] Address [address] [place] [place] [id number] Care Team Providers Care Bell Hole Digger Name Role Phone iMtch Whittaker MD Primary Care Provider Unavailab le Reason For Referral No Information Plan Of Treatment No Information Insurance Providers Payer Name Payer Address Payer Phone Subscriber Number Group Number Insured Name Patient Relationship to Insured Coverage Start Date Coverage End Date Medicare E2 [address] [address] [place] [address] [phone] [id number] Albreta Ontiveros Self - patient is the insured [employer] [address] [place] [address] [phone] [id number] Alberta Ontiveros Self - patient is the insured
--- OUTSIDE RECORDS SUMMARY | 2024-10-31 04:11 | XMS_ITS | Clinical Summary ---
Author Organization [facility] [place] Address [address] [place] [address] Care Team Providers Care Quantitative Software Engineer Name Role Phone KeilaJj garcia Primary Care Provider [phone] Allergies Active Allergy Reactions Criticality Noted Date Comments Codeine Nausea and Vomiting Low 08/21/2018 Medications nabumetone (RELAFEN) 750 mg tablet Take 750 mg by mouth 2 times daily . 08/20/2018 Active losartan (COZAAR) 50 mg tablet Take 50 mg by mouth daily . 06/04/2018 Active Ginkgo Biloba 60 mg Capsule Take 2 Capsules by mouth daily . Active pyridoxine, vitamin B6, (VITAMIN B6) 100 mg Tablet Take 50 mg by mouth daily. Active omega-3 fatty acids-fish oil 300-1,000 mg Capsule Take by mouth daily. Active folic acid/multivit-m in/lutein (CENTRUM SILVER ORAL) Take 1 Tablet by mouth daily . Active amLODIPine (NORVASC) 5 mg tablet Take 5 mg by mouth daily. 10/14/2021 Active donepeziL (ARICEPT) 5 mg tablet Take 5 mg by mouth daily at bedtime. 10/12/2021 Active levothyroxine 50 mcg tablet Take 50 mcg by mouth daily. 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 Family History Medical History Relation Name Comments Diabetes Brother 1 Heart Disease Brother 1 Heart Disease Father Diabetes Mother Heart Disease Mother Cancer Sister 1 Relation Name Status Comments Brother 1 Brother 2 Brother 3 Alive Father Mother Sister 1 Sister 2 Social History Tobacco Use Types Packs/Day Years Used Date Smoking Tobacco: Never Smokeless Tobacco: Never Alcohol Use Standard Drinks/Week Comments Yes 0 (1 standard drink = 0.6 oz pur e alcohol) Comments No Sex and Gender Information Value Date Recorded Sex Assigned at Not on file Legal Sex Female 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 Gender Identity Not on file Sexual Orientation Not on file Last Filed Vital Signs Vital Sign Reading Time Taken Comments Blood Pressure 158/81 12/28/2021 2:38 PM CDT Pulse 74 12/28/2021 2:38 PM CDT Temperature 36.6 ??C (97.9 ??F) 12/28/2021 2:38 PM CD T Respiratory Rate 16 04/25/2019 11:4 7 AM CDT Oxygen Saturation 98% 12/28/2021 2:38 PM CDT Inhaled Oxygen Concentration - - Weight 57.1 kg (125 lb 14.4 oz) 12/28/2021 2:38 PM CDT Height 152.4 cm (5') 12/28/2021 2:38 PM CDT Body Mass Index 24.59 12/28/2021 2:38 PM CDT Plan of Treatment Health Maintenance Due Date Last Done Comments DTAP/TDAP/TD VACCINES (1 - Tdap) 1954 PNEUMOCOCCAL VACCINE 65+ YEARS (1 of 1 - PCV) 12/27/18 85 ZOSTER VACCINE (1 of 2) 1984 OSTEOPOROSIS SCREENING 12/28/1999 RSV VACCINE (60+ or ) (1 - 1-dose 75+ series) 2009 INFLUENZA VACCINE (#1) 2024 Insurance [employer] PPO [facility] Care Teams Quantitative Software Engineer Relationship Specialty Start Date End Date Jj Schneider DO [address] [facility] [address] [place] [id number] PCP - General Internal Medicine 12/28/21
--- OUTSIDE RECORDS SUMMARY | 2024-10-31 04:11 | XMS_ITS | Encounter Summary ---
Author Organization [facility] Address [address] [address] Care Team Providers Care Social Contact Worker Name Role Phone Mitch Whittaker MD Primary Care Provider [phone] Jj Schneider DO Primary Care Provider [phone] Sharita Norman MD Primary Care Provider Encounter Details Date Type Department Care Team (Late st Contact Info) Description 03/11/2019 Lab Requisition [facility] Care Pathology Lab [address] [place] [address] Landry Morfin MD [address] [address] Other amyloidosis (HCC) Social History [...] Group - Geriatrics [address], [facility] [address] [place] [address] Sharita Norman MD [address] [place] [address] documented as of this encounter Procedures Procedure Name Priority Date/Time Associated Diagnosis Comments FLOW CYTOMETRY BONE MARROW Routine 03/11/2019 9:56 AM CDT Other amyloidosis documented in this encounter Results * FLOW CYTOMETRY BONE MARROW (03/11/2019 9:56 AM CDT) Case Report Flow Cytometry ?Case: [id number] ? Authorizing Provider: ??Landry Morfin MD ?Collected: ? 03/11/2019 09:56 AM ? Pathologist: ? Malina Thakur MD ?? Received: ?03/11/2019 03:37 PM ? Specimen: ?Bone Marrow ? 03/12/2019 9:02 AM CDT [facility] PATH[facility]Y [facility] Final Diagnosis Bone marrow, flow cytometric immunophenotypic analysis ([id number]): - Hemodilute specimen. - No evidence of plasma cell dyscrasia, non-Hodgkin lymphoma, or high-grade myeloid neoplasm. - See interpretation. 03/12/2019 9:02 AM CDT [facility] Flow Cytometry Interpretation The [...] flow cytometry specimen is reviewed for quality systems manager purposes. The bone marrow aspirate specimen is hemodilute but shows no evidence of involvement by a plasma cell dyscrasia, non-Hodgkin lymphoma, or a high-grade myeloid neoplasm. Correlation with clinical findings, the concurrent bone marrow core biopsy, and relevant cytogenetic/molecu lar studies is required. KR/NW 03/12/2019 9:02 AM [facility] Flow Cytometry Results Differential Result Comment Flow Cell Count /uL 88622 Total Viability % 96.0 Lymphocytes % 40 Dim CD45 Region % 1 Monocytes % 5 Granulocytes % 52 03/12/2019 9:02 AM [facility] Reason for test Other amyloidosis 277.39 03/12/2019 9:02 AM [facility] Client Specimen ID # [id number] 03/12/2019 9:02 AM [facility] Number of markers 14 were performed. A Flow CD10 A Flow CD13 A Flow CD20 A Flow CD117 A FLOW CD138 A Flow CD5 A Flow CD19 A Flow CD33 A Flow CD34 A Flow CD45 A Flow CD38 A Flow CD56 A [place]+CD19+ A Lambda+CD19+ 03/12/2019 9:02 AM [facility] Disclaimer Test performed at [facility], [address] [place] [address], [id number]. *The established laboratory minimum viability is 70%. [...] high complexity clinical testing. 03/12/2019 9:02 AM [facility] Embedded Images 9:02 AM [facility] Pathology/Cytolo gy BONE MARROW SPECIMEN / Unknown 03/11/2019 9:56 AM CDT 03/11/2019 3:37 PM CDT Landry Morfin MD LAB - PATHOLOGY/CYTO LOGY ORDERABLES [facility] [address] [place] [place] [address], [facility] [phone] documented in this encounter Visit Diagnoses Diagnosis Other amyloidosis (HCC) Other amyloidosis documented in this encounter Care Teams Social Contact Worker Relationship Specialty Start Date End Date Mitch Whittaker MD [address] [place] [id number] PCP - General 08/24/10 02/18/24 Jj Schneider DO [address] [facility] [address] [place] [id number] PCP - General Internal Medicine 02/19/24 08/29/24 Sharita Norman MD [address] [place] [address] PCP - General Internal Medicine Geriatric Medicine 08/30/24 documented as of this encounter
== END 2024-10-25 01:30 | disposition expired | DRG 951 ==
PROVIDERS: Admitting Provider Internal Medicine; PCP Internal Medicine; Visit Provider Internal Medicine
DX: Z51.5 Encounter for palliative care (principal); S72.011A Unspecified intracapsular fracture of right femur, initial encounter for closed fracture; E85.9 Amyloidosis, unspecified; F03.90 Unspecified dementia, unspecified severity, without behavioral disturbance, psychotic disturbance, mood disturbance, and anxiety; M16.0 Bilateral primary osteoarthritis of hip; E78.5 Hyperlipidemia, unspecified; I10 Essential (primary) hypertension; K21.9 Gastro-esophageal reflux disease without esophagitis; R91.8 Other nonspecific abnormal finding of lung field; Z96.659 Presence of unspecified artificial knee joint; J44.9 Chronic obstructive pulmonary disease, unspecified; I48.91 Unspecified atrial fibrillation; W18.30XA Fall on same level, unspecified, initial encounter
CPT/HCPCS: A9270; J2270